=== PATIENT | female | born 1950 | race Caucasian/White ===

== ENCOUNTER 2020-02-06 12:07 | Emergency (ER) | payer MEDICARE, SELFPAY ==
[2020-02-06 12:43] VITALS: BP 152/85; PULSE 110; RESP 16; TEMP 36.9; O2SAT 97; BMI 25.2
--- NOTE | 2020-02-06 13:00 | PC.NURSE ---
PT TRIAGED, OPEN WOUND ON POSTERIOR ASPECT OF LLE. CLEAR DRAINAGE AND REDNESS NOTED, NO WARMTH FELT AROUND THE WOUND, PT DENIES ANY PAIN. RECENTLY FINISHED PCN AND DOXY RXS, REPORTEDLY WITH NO EFFECT. SHE THINKS THIS BEGAN WITH A BUG BITE, THEN CONTAMINATED BY HER DOG. PT HAS CHRONIC BILAT LE EDEMA, DENIES CHF, SOB. TYPICALLY INDEPENDENT AND AMBULATORY AT HOME WITH HER DAUGHTER. DENIES FEVERS AT HOME, CURRENTLY AFEBRILE. REFERRED HERE BY PCP. A&OX3, SPEAKING IN CLEAR FULL SENTENCES. RESP EVEN AND NONLABOURED.
--- NOTE | 2020-02-06 13:07 | PC.NURSE ---
PREVIOUS NOTE ENTERED BY THIS RN
--- NOTE | 2020-02-06 13:22 | ED.WOUNDLAC ---
HPI - Wound/Laceration General Chief Complaint: Wound/Laceration Stated Complaint: LEG INFECTION Time Seen by Provider: 02/06/20 13:08 Source: patient Mode of arrival: ambulatory History of Present Illness HPI narrative: 69-year-old female with a past medical history of hypertension, peripheral edema /lymphedema c/o LLE cellulitis/infection x2 weeks s/p failed outpatient treatment. Patient was on doxycycline x17 days without improvement. Reports LLE erythema, and slight clear drainage. Reports believed was bit by insect and or scratch by dog, reports continuously picking at area. Denies fever, chills, worsening LE edema, SOB Onset (ago): week(s) Related Data Allergies Allergy/AdvReac Type Severity Reaction Status Date / Time amoxicillin [From Augmentin] Allergy Shortness Verified 02/06/20 13:19 of Breath clavulanic acid Allergy Shortness Verified 02/06/20 13:19 [From Augmentin] of Breath Review of Systems Review of Systems: Constitutional: No Weight loss, No Fever, No Chills, No Night Sweats, No Fatigue, Cardiovascular: No Chest Pain, No SOB, No Dyspnea on Exertion, chronic Edema Respiratory: No Cough, No Sputum, No Wheezing Gastrointestinal: No Nausea, No Vomiting, No Diarrhea, No Constipation, No Abdominal pain Genitourinary: No irregular bleeding, No Dysuria, No Urinary Frequency, No Hematuria, No Urinary Incontinence, No Urgency, No Flank Pain, No Urinary Flow Changes, No Hesitancy Musculoskeletal: No joint pain, No Myalgias, No Joint Swelling Skin: +LLE wound with erythema and drainage Neuro: No Weakness, No Numbness, No Paresthesias, No Loss of Consciousness Yes all other systems are reviewed and are negative [facility] Past Medical History Source: unable to obtain Medical History (Updated 02/06/20 @ 16:25 by RINA Brown) Hypertension Peripheral edema Social History Social History Alcohol intake: never Smoking Status: Never smoker Use of substances other than those prescribed or required for medical reasons: No Advance Directives: No Advance Directives Information Provided: No Physical Exam Vital Signs: Vital Signs: Vital Signs Temp Pulse Resp BP Pulse Ox 02/06/20 12:43 98.4 F 110 H 16 152/85 H 97 Body Mass Index 25.2 Const: General: cooperative and healthy appearing Orientation/consciousness: patient oriented x3 Limitations: no limitations HENMT: Head: Yes normal to inspection Ears: hearing grossly normal bilaterally General nose exam: Normal external nose present Face and sinus: Yes normal facial exam Eyes: General: appearance normal, both eyes and all related structures EOM: EOMs intact bilaterally Neck: Neck: Yes normal visual inspection Resp: Effort & Inspection: normal respiratory effort and no stridor Auscultation: clear to auscultation bilaterally, no crackles, no rales, no rhonchi and no wheezes Cardio: Rate: regular rate Heart sounds: S1 normal heart sound present and S2 normal heart sound present Peripheral pulses: Peripheral pulses 2+ throughout GI: Inspection: Yes normal to inspection Palpation (GI): Soft to palpation, nontender, no guarding and not rigid Skin: Other: + erythema/scabs noted to LLE with superficial weeping wound. No fluctuance /induration or streaking. No warmth Neuro: General: patient oriented x3 Extrem: General: Yes edema ( bilateral LE. pitting) Course Course Course Narrative: - 1452-- no leukocytosis, BUN elevated greater than baseline, BNP 149 - CXR without gross evidence of congestive heart failure. Lactate within normal limits - spoke to hospitalist about patient, involved Infectious Disease. Infectious Disease, Dr. Johnson does not believe is cellulitis /infectious, likely irritation/secondary to chronic peripheral edema /wound. ID recommended outpatient wound care. Case Management setting up VNA services for patient. Antibiotics not recommended will discharge home with VNA beginning on Saturday - patient will need a nonstick dressings MDM - Wound/Laceration MDM Narrative Medical decision making narrative: 69-year-old female with a past medical history of hypertension, peripheral edema /lymphedema c/o LLE cellulitis/infection x2 weeks s/p failed outpatient treatment. On exam tachycardic, afebrile nontoxic appearing, left lower extremity cellulitis /weeping wound. Concern for cellulitis vs CHF vs wound secondary to chronic peripheral edema outpatient x-ray from 01/19 without osteomyelitis, WBC count 5.9 on the day Plan: Labs, lactate, blood cultures, admission Lab Data Result diagrams: 02/06/20 14:03 02/06/20 14:03 Labs: Lab Results 02/06/20 02/06/20 02/06/20 Range/Units 14:03 14:03 14:03 WBC 7.6 (4.8-10.8) X10*3/uL RBC 3.63 L (4.20-5.50) X10*6/uL Hgb 10.0 L (12.0-16.0) g/dl Hct 32.3 L (37-47) % MCV 89.0 (80-98) fL MCH 27.5 (27.0-33.0) pg MCHC 31.0 (31.0-35.0) g/dl RDW 15.5 (11.0-16.0) % Plt Count 201 (160-400) X10*3/uL MPV 10.4 (9.4-12.3) fL Immature Gran % (Auto) 0.3 (0.0-0.4) % Neut % (Auto) 75.2 H (45-73) % Lymph % (Auto) 18.0 L (20-40) % [place] % (Auto) 6.0 (2-11) % Eos % (Auto) 0.1 (0-4) % Baso % (Auto) 0.4 (0-2) % Lymph # (Auto) 1.4 (1.2-4.9) X10*3/uL [place] # (Auto) 0.5 (0.1-1.2) X10*3/uL Eos # (Auto) 0.0 (0.0-0.4) X10*3/uL Baso # (Auto) 0.0 (0.0-0.2) X10*3/uL Abs Immat Gran (auto) 0.02 (0.00-0.03) X10*3/uL Absolute Neuts (auto) 5.7 (2.0-8.3) X10*3/uL Absolute Nucleated RBC 0.000 (0.0-0.012) X10*3/uL Nucleated RBC % (auto) 0.0 (0.0-0.2) /100WBC ESR 34 H (0-20) MM/HR Sodium 141 (135-145) mmol/L Potassium 3.7 (3.3-5.1) mmol/l Chloride 106 (96-108) mmol/L Carbon Dioxide 27 (22-29) mmol/L Anion Gap 12 (12-20) BUN 28 H (9-16) mg/dL Creatinine 0.73 (0.5-1.4) mg/dL Estim Creat Clear Calc 70.2 Estimated GFR > 60 Random Glucose 100 (60-115) mg/dL Lactic Acid (0.5-2.0) mmol/L Calcium 9.1 (8.4-10.2) mg/dL Total Bilirubin 0.4 (0.0-1.0) mg/dL Direct Bilirubin 0.2 (0.0-0.5) mg/dL AST 20 (5-31) U/L ALT 17 (0-31) U/L Alkaline Phosphatase 132 H (39-117) U/L C-Reactive Protein 1.73 H (< or = 0.50) mg/dL B-Natriuretic Peptide (<100) pg/mL Total Protein 6.6 (6.5-8.0) g/dL Albumin 2.9 L (3.5-5.0) g/dL 02/06/20 02/06/20 Range/Units 14:03 14:03 WBC (4.8-10.8) X10*3/uL RBC (4.20-5.50) X10*6/uL Hgb (12.0-16.0) g/dl Hct (37-47) % MCV (80-98) fL MCH (27.0-33.0) pg MCHC (31.0-35.0) g/dl RDW (11.0-16.0) % Plt Count (160-400) X10*3/uL MPV (9.4-12.3) fL Immature Gran % (Auto) (0.0-0.4) % Neut % (Auto) (45-73) % Lymph % (Auto) (20-40) % [place] % (Auto) (2-11) % Eos % (Auto) (0-4) % Baso % (Auto) (0-2) % Lymph # (Auto) (1.2-4.9) X10*3/uL [place] # (Auto) (0.1-1.2) X10*3/uL Eos # (Auto) (0.0-0.4) X10*3/uL Baso # (Auto) (0.0-0.2) X10*3/uL Abs Immat Gran (auto) (0.00-0.03) X10*3/uL Absolute Neuts (auto) (2.0-8.3) X10*3/uL Absolute Nucleated RBC (0.0-0.012) X10*3/uL Nucleated RBC % (auto) (0.0-0.2) /100WBC ESR (0-20) MM/HR Sodium (135-145) mmol/L Potassium (3.3-5.1) mmol/l Chloride (96-108) mmol/L Carbon Dioxide (22-29) mmol/L Anion Gap (12-20) BUN (9-16) mg/dL Creatinine (0.5-1.4) mg/dL Estim Creat Clear Calc Estimated GFR Random Glucose (60-115) mg/dL Lactic Acid 0.8 (0.5-2.0) mmol/L Calcium (8.4-10.2) mg/dL Total Bilirubin (0.0-1.0) mg/dL Direct Bilirubin (0.0-0.5) mg/dL AST (5-31) U/L ALT (0-31) U/L Alkaline Phosphatase (39-117) U/L C-Reactive Protein (< or = 0.50) mg/dL B-Natriuretic Peptide 149 H (<100) pg/mL Total Protein (6.5-8.0) g/dL Albumin (3.5-5.0) g/dL Discharge Plan Discharge Clinical Impression: Dermatitis Patient Disposition: Home, Self-Care Instructions: Acute Wounds (ED) Additional Instructions: your blood work was unremarkable today in the ED, no markers of infection Infectious disease does not believe your wound is cellulitis, believed to be topical wound/ may be secondary to your peripheral edema Outpatient wound care recommended, not antibiotics VNA services were set up, you may also follow-up with [place] [facility] If area is worsening,, you have fever, redness is spreading, worsening drainage return to the ED Referrals: [facility] [Outside] - 2 days [facility] [Provider Group] - 2 days
[2020-02-06 14:13] LABS: MANUAL DIFF FLAG NO
[2020-02-06 14:14] LABS: Basophils Percent Auto 0.4 % (0-2); Eosinophils Percent Auto 0.1 % (0-4); Hematocrit 32.3 % (37-47); Imm Gran Abs Auto 0.02 X10*3/uL (0.00-0.03); Imm Gran Pct Auto 0.3 % (0.0-0.4); Lymphocytes Absolute Auto 1.4 X10*3/uL (1.2-4.9); Mean Corpuscular Hemoglobin 27.5 pg (27.0-33.0); Mean Platelet Volume 10.4 fL (9.4-12.3); Monocytes Absolute Auto 0.5 X10*3/uL (0.1-1.2); Neutrophils Absolute Auto 5.7 X10*3/uL (2.0-8.3); Neutrophils Percent Auto 75.2 % (45-73); Platelet Count 201 X10*3/uL (160-400); Red Blood Count 3.63 X10*6/uL (4.20-5.50); Red Cell Distribution Width 15.5 % (11.0-16.0); White Blood Count 7.6 X10*3/uL (4.8-10.8)
[2020-02-06 14:35] LABS: Lactic Acid 0.8 mmol/L (0.5-2.0)
[2020-02-06 14:40] LABS: Alanine Aminotransferase 17 U/L (0-31); Albumin Level 2.9 g/dL (3.5-5.0); Alkaline Phosphatase 132 U/L (39-117); Anion Gap 12 (12-20); Aspartate Amino Transferase 20 U/L (5-31); Bilirubin Direct 0.2 mg/dL (0.0-0.5); Bilirubin Total 0.4 mg/dL (0.0-1.0); Blood Urea Nitrogen 28 mg/dL (9-16); C Reactive Protein 1.73 mg/dL (< or = 0.50); Calcium 9.1 mg/dL (8.4-10.2); Carbon Dioxide 27 mmol/L (22-29); Chloride 106 mmol/L (96-108); Creatinine Clr Calc Pharmacy 70.2; Estimated Glomerular Filt Rate > 60; Glucose Random 100 mg/dL (60-115); Potassium 3.7 mmol/l (3.3-5.1); Sodium 141 mmol/L (135-145); Total Protein 6.6 g/dL (6.5-8.0)
[2020-02-06 14:46] LABS: B Type Natriuretic Peptide 149 pg/mL (<100)
--- NOTE | 2020-02-06 14:53 | XR_ITS ---
EXAMINATION: XR CHEST CLINICAL INFORMATION: Question of CHF COMPARISON: None TECHNIQUE: Frontal view of the chest was obtained. FINDINGS: The heart and pulmonary vessels appear normal. There is no gross evidence of CHF. There may be the slightest amount of upper zone redistribution present but no interstitial edema. Tiny trace right effusion may be present. There is no evidence of a left effusion. No consolidations or lung masses seen. Degenerative changes present in both shoulders. IMPRESSION: No gross evidence of congestive heart failure. There may be some borderline upper zone vascular redistribution present as described above. This can occasionally represent mildly elevated left ventricular end-diastolic pressure.
[2020-02-06 14:54] LABS: Erythrocyte Sedimentation Rate 34 MM/HR (0-20)
[2020-02-06] MEDS: cefEPime HCl 2 GM in 0.9 % Sodium Chloride 50 ML IV (15:15)
[2020-02-06] MEDS: vancomycin HCL 750 MG in 0.9 % Sodium Chloride 250 ML 265 MG IV (15:45)
--- NOTE | 2020-02-06 16:13 | PC.NURSE ---
[facility]
--- NOTE | 2020-02-07 11:21 | MHC.CM.ED ---
Received notification from [facility] that they will not be able to accept patient. Patient only needs dry clean dressing and has been referred to Wound Clinic. Patient has been discharged home.
== END 2020-02-06 18:17 | disposition home or self-care (01) ==
PROVIDERS: Physician Assistant; Emergency Provider Emergency Medicine; PCP Internal Medicine
DX: L30.9 Dermatitis, unspecified (principal); R60.0 Localized edema; I10 Essential (primary) hypertension; Z79.899 Other long term (current) drug therapy
CPT/HCPCS: 36415; 71045; 80048; 80076; 83605; 83880; 85025; 85652; 86140; 87040; 96365; 96367; 99284

== ENCOUNTER 2020-02-11 14:01 | Outpatient (RCR) | payer MEDICARE, SELFPAY | END 2020-05-26 15:22 | disposition home or self-care (01) | LOC: HO.WCC 14:01 | PROVIDERS: PCP Internal Medicine; Visit Provider Surgery | DX: I87.312 Chronic venous hypertension (idiopathic) with ulcer of left lower extremity (principal); I70.248 Atherosclerosis of native arteries of left leg with ulceration of other part of lower leg; L97.821 Non-pressure chronic ulcer of other part of left lower leg limited to breakdown of skin; S81.801D Unspecified open wound, right lower leg, subsequent encounter; Q82.0 Hereditary lymphedema; R21 Rash and other nonspecific skin eruption; I10 Essential (primary) hypertension | CPT/HCPCS: 99202; 99212; 99213; 99214 ==

== ENCOUNTER 2022-12-14 15:49 | Outpatient (AMB) | payer MEDICARE, SELFPAY ==
--- NOTE | 2022-12-14 15:49 | A.OFFPC_ITS ---
Intake Visit Reasons: 3 month f/u [phone] Allergies amoxicillin [From Augmentin] Allergy (Severe, Verified 12/14/22 16:37) Shortness of Breath clavulanic acid [From Augmentin] Allergy (Severe, Verified 12/14/22 16:37) Shortness of Breath Medication List - Last Reconciled 12/14/22 by Carlos Madrigal MD ammonium lactate 12% 1 appl topical BID aspirin (Nima Aspirin) 325 mg PO DAILY bismuth tribrom-petrolatum,wh 5 X 9 (Xeroform Petrolatum Dressing) As directed cholecalciferol (vitamin D3) 25 mcg PO DAILY clotrimazole 1% 1 appl topical BID 30 days collagenase clostridium histo. 1 appl topical DAILY 30 days docusate sodium 100 mg PO DAILY PRN 30 days gauze bandage (Bordered Gauze) As directed [LIGHTWEIGHT WHEELCHAIR LIGHTWEIGHT WHEELCHAIR # 1 - use daily as directed] loperamide (Imodium A-D) 2 mg PO Q6H PRN miscellaneous medical supply Hospital Bed - use daily as needed miscellaneous; Hospital Bed miscellaneous medical supply Adjustable Bedside Tray Table miscellaneous; Adjustable Bedside Tray Table nystatin (Nystop) 1 appl topical DAILY nystatin (Nystop) 1 appl topical BID 10 days tramadol 50 mg PO BID PRN 15 days wheelchair As directed zinc oxide 12% (Bing Protect (zinc oxide)) 1 appl topical QID PRN 10 days Tobacco use date assessed: 12/14/22 Dental Screening Dental Screen Date: 12/14/22 Did you have a dental visit in the last 12 months?: No Did you have a dental problem in the last 6 months where you did not have access to dental care?: No Was dental information given to patient?: Patient declined HPI 3 month f/u [phone] HPI Details Patient's follow-up visit / consultation today is done over the phone - this is a Telehealth visit Patient's current medications have been reviewed and verified with patient and / or caregiver / proxy and have been updated accordingly in the medication list Patient states that she is doing fair overall - still has the same chronic issues from before and states that they have not changed much although she used to have diarrhea often in the past but lately has been getting constipated Notes that her stomach has been feeling bloated often lately and she sometimes does not have a bowel movement for days Would like to see if she can be prescribed something mild to help regulate her bowels better Adds that she currently has some sores again on her legs recently and she still has on and off swelling States that her daughter recently got her some new supplements to drink and her sores look like they are starting to heal up now She denies any fever, headaches or dizziness Denies any chest pains, no shortness of breath No nausea /vomiting, no abdominal pain No change in bowel habits noted [facility] Medical History Allergic rhinitis Benign essential hypertension Decubitus skin ulcer Deep vein thrombosis Deep vein thrombosis (DVT) of both lower extremities Heel ulcer Hospital discharge follow-up Lymphedema Vitamin D deficiency Surgical History No pertinent past surgical history Family History Father Glaucoma Alzheimers disease Mother Skin cancer Brain cancer Family/Other Heart disease Social History Housing: House Alcohol intake: never Patient Tobacco Use Status: Never used Tobacco e-Cigarette/Vaping Use: Never Used Second Hand Smoke Exposure: Yes service: No Current occupational status: disabled Cognitive needs: Yes (wheelchair) Hearing needs: No Vision needs: Yes Questionnaire PHQ-9 Over the last 2 weeks, how often have you been bothered by any of the following problems? 1. Little interest or pleasure in doing things: not at all 2. Feeling down, depressed, or hopeless: not at all 3. Trouble falling or staying asleep, or sleeping too much: not at all 4. Feeling tired or having little energy: not at all 5. Poor appetite or overeating: not at all 6. Feeling bad about yourself - or that you are a failure or have let yourself or your family down: not at all 7. Trouble concentrating on things, such as reading the newspaper or watching television: not at all 8. Moving or speaking so slowly that other people could have noticed. Or the opposite - being so fidgety or restless that you have been moving around a lot more than usual: not at all 9. Thoughts that you would be better off or of hurting yourself in some way: not at all Total score: 0 Depression Screening Interpretation: Negative 38121 - PHQ-9 Billing: Yes Source: Developed by Drs. Kevyn Millan, Erica Benson, Miguel Freeman and colleagues, with an educational juventino from [employer]. Thrive Questionnaire Date Thrive assessed: 12/14/22 I am a: Patient What is your living situation today?: I have a steady place to live Within the past 12 months, did the food you bought not last and you didn't have the money to get more?: Never true Within the past 12 months, did you worry whether your food would run out before you got money to buy more?: Never true Do you have trouble paying for medicines?: No Do you have trouble getting transportation to medical appointments?: No Do you have trouble paying your heating and electricity bill?: No Do you have trouble taking care of your child, family member or friend?: No Do you have trouble with day-to-day activities such as bathing, preparing meals, shopping, managing finances, etc.?: No Are you currently unemployed and looking for a job?: No Are you interested in more education?: No Currently or been in a relationship where the following occur: no concerns reported AUDIT C Alcohol Use Questionnaire (AUDIT-C) 1. How often do you have a drink containing alcohol?: Never 3. How often do you have six or more drinks on one occasion?: Never Total Score: 0 Score Reviewed/Action Taken: Yes MEGAN-7 AMB Questionnaire MEGAN-7 Date MEGAN - 7 assessed: 12/14/22 Feeling nervous, anxious, or on edge: 0 = Not at all Not being able to stop or control worryin = Not at all Worrying too much about different things: 0 = Not at all Trouble relaxin = Not at all Being so restless that it is hard to sit still: 0 = Not at all Becoming easily annoyed or irritable: 0 = Not at all Feeling afraid as if something awful might happen: 0 = Not at all Total MEGAN-7 score (0-4 normal; 5-9 mild; 10-14 moderate; 15-21 severe): 0 Source: Developed by Drs. Kevyn Millan, Erica Benson, Miguel Freeman and colleagues, with an educational juventino from [employer]. Review of Systems Const Denies chills, Denies fatigue, Denies fever(s) and Denies headache(s) ENT Denies dysphagia, Denies dizziness, Denies otalgia, Denies headache(s), Denies odynophagia and Denies sore throat Card Denies chest pain, Denies palpitations and Denies dyspnea Resp Denies cough and Denies dyspnea GI Denies abdominal pain, Reports bloating, Denies hematochezia, Reports constipation (increasing lately), Denies dysphagia, Denies heartburn, Denies diarrhea, Denies nausea, Denies odynophagia and Denies vomiting Denies difficulty voiding, Denies nocturia and Denies dysuria Skin/Breast Denies skin ulcer and Reports sores (over both lower legs) Neuro Denies dizziness and Denies headache(s) Endo Denies fatigue and Denies palpitations Rangel/Lymph Details: (+) chronic swelling over both lower legs and feet Physical exam (Primary Care) Vital Signs: Physical examination is not performed as visit / consultation today is done over the phone - Telehealth visit All physical findings indicated here, if present, are as per patient's and / or caregivers / proxy's report Tobacco/Smoking Status: Tobacco use Status Tobacco use date assessed 12/14/22 12/14/22 15:51 Patient Tobacco Use Status Never used Tobacco 12/14/22 15:51 e-Cigarette/Vaping Use Never Used 12/14/22 15:51 PHQ-9: PHQ-9 Score PHQ-9: Total score 0 12/14/22 16:51 Depression Screening Interpretation: Negative Thrive Assessment: Date of Thrive Assessment Date Thrive assessed 12/14/22 12/14/22 15:51 Currently or been in a relationship where the following occur: no concerns reported Telehealth Telehealth Location of provider rendering services: practice address Location of patient: address on file Patient Identification confirmed using: Name, : Yes Telehealth method: voice only Patient verbally consented to treatment: Yes Patient verbally consented to billing insurance company: Yes Patient informed of any privacy concerns related to visit: Yes Minutes spent on Phone/Video with Pt.: 17 Assessment and Plan Assessment & Plan (1) Decubitus skin ulcer: Code(s): L89.90 - Pressure ulcer of unspecified site, unspecified stage Qualifiers: Pressure injury location: back, unspecified location Pressure injury stage: unspecified pressure injury stage Qualified Code(s): L89.109 - Pressure ulcer of unspecified part of back, unspecified stage Plan: Over the lower extremities - chronic Patient states that her lower extremity ulcers have recurred lately but seem to be improving now when she started taking some oral supplements procured by her daughter Is again instructed to continue with daily wound care on her lower legs and to keep her legs elevated as often as she can to help with wound healing and to minimize her edema (2) Lymphedema: Comment: Blisters on legs Code(s): I89.0 - Lymphedema, not elsewhere classified Plan: Reminded to continue to keep her legs elevated as often as she can to help minimize her edema - patient states that this has improved a lot and she ahs hardly any swelling in her legs lately (3) Constipation: Code(s): K59.00 - Constipation, unspecified Qualifiers: Constipation type: unspecified constipation type Qualified Code(s): K59.00 - Constipation, unspecified Plan: Reinforced increased oral fluids and dietary fiber Will start her for now on Senna 8.6 mg QD PRN Plan Follow up in 3 months Medications: New sennosides (Senna Laxative) 8.6 mg PO BEDTIME PRN 90 tabs 1RF constipation 90 days Coding Level of Care Code Tele Est Pt Level 3 (11079) Diagnoses Decubitus skin ulcer L89.109 Pressure injury location: back, unspecified location Pressure injury stage: unspecified pressure injury stage Lymphedema I89.0 Constipation K59.00 Constipation type: unspecified constipation type
== END 2022-12-14 17:19 | disposition home or self-care (01) ==
LOC: HO.HMGH 15:49
PROVIDERS: PCP Internal Medicine; Visit Provider Internal Medicine
DX: L89.899 Pressure ulcer of other site, unspecified stage (principal); I89.0 Lymphedema, not elsewhere classified; K59.00 Constipation, unspecified
CPT/HCPCS: 99442

== ENCOUNTER 2023-03-10 16:55 | Inpatient (IN) | payer MEDICARE, MEDICAID, SELFPAY ==
--- NOTE | ~2023-03-10 | US_ITS ---
EXAMINATION: US DOPPLER LOWER EXTREMITY ARTERIAL, BILATERAL CLINICAL INFORMATION: Suspect ischemia. COMPARISON: None TECHNIQUE: Color Doppler and spectral Doppler assessment was obtained through the arteries of both lower extremities. Additional images were taken of the right deep venous system. FINDINGS: RIGHT: Common femoral: PSV 47 centimeters per second. Triphasic waveform. Deep femoral: PSV 43 centimeters per second. Biphasic waveform. Proximal superficial femoral: PSV 63 centimeters per second. Biphasic waveform. Mid superficial femoral: PSV 56 centimeters per second. Biphasic waveform. Distal superficial femoral: PSV 25 centimeters per second. Monophasic waveform. Proximal popliteal: Not imaged Posterior tibial artery: PSV 44 centimeters per second. Monophasic waveform. LEFT: Common femoral: PSV 62 centimeters per second. Triphasic waveform. Deep femoral: PSV 87 centimeters per second. Biphasic waveform. Proximal superficial femoral: PSV 49 centimeters per second. Biphasic waveform. Mid superficial femoral: PSV 63 centimeters per second. Biphasic waveform. Distal superficial femoral: PSV 45 centimeters per second. Biphasic waveform. Proximal popliteal: Not imaged Posterior tibial artery: PSV 57 centimeters per second. Monophasic waveform. Of note, the bilateral popliteal arteries were not imaged at the patient's request not to move her legs. Incidental note is made of noncompressible deep vein thrombus in the right common femoral, and femoral veins. US/US arterial duplex LE BI IMPRESSION: 1. Incidental note is made of noncompressible deep vein thrombus in the right common femoral, and femoral veins. 2. Otherwise, no evidence of hemodynamically significant stenosis in the bilateral lower extremity arteries. 3. Bilateral popliteal arteries were not imaged at the patient's request not to move her legs.
--- NOTE | ~2023-03-10 | CT_ITS ---
EXAMINATION: CT ABDOMEN AND PELVIS WITH CONTRAST CLINICAL INFORMATION: Abdominal pain. COMPARISON: None available. TECHNIQUE: Multidetector volumetric images were obtained from the superior aspect of the liver through the pubic symphysis following administration 85 mL of Omnipaque 350 intravenous contrast. Sagittal and coronal reformatted images were obtained on the technologist's workstation. Oral contrast: No This CT examination was performed using dose optimization techniques as appropriate, variously including the following: *Automated exposure control *Adjustment of mA and/or kV according to patient size (this includes techniques or standardized protocols for targeted exams where dose is matched to indication/reason for exam; i.e. extremities or head) *Use of iterative reconstruction technique DLP: 649 mGy-cm FINDINGS: LUNG BASES: There is minimal right pleural effusion with mild associated right lung base consolidation. LIVER, GALLBLADDER, AND BILIARY TREE: The liver is normal in size, shape, and attenuation. No focal hepatic lesion or biliary ductal dilatation is present. Multiple gallstones are noted. PANCREAS: Unremarkable. SPLEEN: Unremarkable. ADRENAL GLANDS: Unremarkable. KIDNEYS AND URETERS: The kidneys are normal in size, shape, and attenuation. There is an apparent right-sided staghorn calculus extending to the right renal pelvis. There is no hydronephrosis. There is no hydroureter. BLADDER: There is mild urinary bladder wall thickening. GASTROINTESTINAL TRACT: A rectal catheter is noted in place. There is retained rectal stool with rectal expansion to 6.1 cm and mild rectal thickening. ABDOMINAL WALL: There is a small umbilical hernia containing fat. There is a large sacrococcygeal defect with a meshlike structure along the defect and mixed fluid and air lucencies just posterior to the defect. There is also bilateral symmetric presacral soft tissue densities measuring up to 6 cm. There is an oval 5 mm collection along the right iliac bone which appears to be connected to the presacral collection and associated with the defect. LYMPH NODES: Normal. VASCULAR: Unremarkable. PELVIC VISCERA: Bilateral symmetric presacral soft tissue densities are noted measuring up to 6 cm. OSSEOUS STRUCTURES: There is diffuse mild thoracolumbar disc degenerative change. A sacrococcygeal defect is again noted as described above. The bony structures are osteopenic and heterogeneous. There is significant bilateral hip degenerative change. CT/CT abdomen pelvis w IV con IMPRESSION: Large sacrococcygeal defect with a meshlike structure filling the defect as well as fluid and some air dorsal to defect and heterogeneous presacral soft tissue structures associated with the defect. The presacral structures are of uncertain current significance and may be chronic. Phlegmon considered. There is an associated 5 cm collection along the right iliac bone which appears to be connected to the presacral collection and associated with the defect. This may also be chronic. No comparisons are available. Rectal catheter in place with retained rectal stool and mild rectal thickening possibly a mild stercoral colitis. Mild urinary bladder wall thickening needs correlation with urinalysis. Minimal right pleural effusion with mild right mild right lung base consolidation likely atelectasis. A component of infiltrate also considered. Cholelithiasis. There appears to be a staghorn calculus on the right. Fleischner guidelines were followed.
--- NOTE | ~2023-03-10 | CT_ITS ---
EXAMINATION: CT right lower leg with contrast CLINICAL INFORMATION: Anemia. Possible hematoma. There is pain in the lower leg. COMPARISON: None. TECHNIQUE: Axial images obtained through the right lower leg from the proximal thigh through the foot after intravenous injection of 85 mL of Omnipaque 350. Coronal and sagittal reformatted images are performed at CT scanner FINDINGS: No hematoma. No focal fluid collections. No abnormal enhancing lesion. Mild subcutaneous edema throughout the lower extremity. No abscess. There is osteopenia. No acute osseous lesions. No fracture or dislocation. Degenerative joint narrowing of the femoral tibial and patellofemoral joints. CT/CT lower leg RT w IV con IMPRESSION: 1. No hematoma. 2. Mild subcutaneous edema throughout the leg.
--- NOTE | ~2023-03-10 | XR_ITS ---
EXAMINATION: XR CHEST CLINICAL INFORMATION: Central line placement. COMPARISON: 02/06/2020 TECHNIQUE: Frontal view of the chest was obtained. FINDINGS: Right IJ central venous catheter tip terminates near the cavoatrial junction. EKG leads overlie the chest. Lung lines are normal. No pneumothorax, pleural effusion, or airspace consolidation. Cardiac and meniscal contours are normal. Pulmonary vasculature is unremarkable. Bones are osteopenic. Osteoarthritis is present in the acromioclavicular and glenohumeral joints. XR/XR chest 1V IMPRESSION: Right IJ central venous catheter tip terminates near the cavoatrial junction. No pneumothorax.
[2023-03-10 17:13] VITALS: BP 90/60; PULSE 110; PULSE 115; RESP 14; O2SAT 95; O2SAT 99
--- NOTE | 2023-03-10 17:24 | ECG_ITS ---
Test Reason : WEAKNESS Blood Pressure : / mmHG Vent. Rate : 111 BPM Atrial Rate : 111 BPM P-R Int : 124 ms QRS Dur : 088 ms QT Int : 334 ms P-R-T Axes : 074 065 249 degrees QTc Int : [address] & T wave abnormality, consider inferior ischemia ST & T wave abnormality, consider anterolateral ischemia Abnormal ECG No previous ECGs available Referred By: Verna Merida Electronically Signed By:BARNEY LEE MD
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
[2023-03-10 18:41] VITALS: BP 80/35; PULSE 13; TEMP 36.4
[2023-03-10] MEDS: 0.9 % Sodium Chloride 1,000 ML 999 ML IV ×2 (18:54→20:47)
[2023-03-10 18:59] VITALS: BP 90/54; PULSE 105; RESP 12; TEMP 36.1; O2SAT 91
[2023-03-10 19:00] LABS: Lactic Acid 3.3 mmol/L (0.5-2.0)
[2023-03-10 19:06] LABS: Alanine Aminotransferase 6 U/L (0-31); Albumin Level 1.9 g/dL (3.5-5.0); Alkaline Phosphatase 190 U/L (39-117); Anion Gap 20 (12-20); Aspartate Amino Transferase 12 U/L (5-31); Bilirubin Total 0.5 mg/dL (0.0-1.0); Blood Urea Nitrogen 60 mg/dL (9-16); Carbon Dioxide 16 mmol/L (22-29); Chloride 103 mmol/L (96-108); Creatinine Clr Calc Pharmacy 32.8; Estimated Glomerular Filt Rate 43; Glucose Random 126 mg/dL (60-115); Magnesium 1.8 mg/dL (1.6-2.6); Phosphorus 3.4 mg/dL (2.7-4.5); Potassium 4.9 mmol/L (3.3-5.1); Sodium 134 mmol/L (135-145); Total Protein 6.1 g/dL (6.5-8.0)
[2023-03-10 19:09] LABS: Basophils Percent Auto 0.2 % (0-2); Hematocrit 22.1 % (37.0-47.0); Imm Gran Abs Auto 0.29 X10*3/uL (0.00-0.03); Imm Gran Pct Auto 1.2 % (0.0-0.4); Lymphocytes Absolute Auto 1.6 X10*3/uL (1.2-4.9); Lymphocytes Percent Auto 6.7 % (20-40); MANUAL DIFF FLAG SCAN; Mean Corpuscular HGB Conc 28.5 g/dl (31.0-35.0); Mean Corpuscular Hemoglobin 19.8 pg (27.0-33.0); Mean Corpuscular Volume 69.5 fL (80.0-98.0); Mean Platelet Volume 9.7 fL (9.4-12.3); Monocytes Absolute Auto 0.9 X10*3/uL (0.1-1.2); Monocytes Percent Auto 3.6 % (2-11); NRBC Pct Auto 0.5 /100WBC (0.0-0.2); Neutrophils Absolute Auto 21.6 x10*3/uL (2.0-8.3); Neutrophils Percent Auto 88.3 % (45-73); Platelet Count 164 X10*3/uL (160-400); Red Blood Count 3.18 X10*6/uL (4.20-5.50); Red Cell Distribution Width 26.4 % (11.0-16.0); SCAN SMEAR FLAG 1; White Blood Count 24.4 X10*3/uL (4.8-10.8)
--- OUTSIDE RECORDS SUMMARY | 2023-03-10 19:15 | XMS_ITS | Continuity of Care Document ---
Author Name Unknown Organization [facility] Address Unknown Care Team Providers Care Band Maker Name Role Phone Carlos Madrigal MD Primary Care Physician [phone] [place] [facility] [place] 01/[place]21 [facility] Attending Physician: Susannah Dave Admitting Physician: Susannah Dave Referring Physician: Susannah Dave Allergies, Adverse Reactions, Alerts No Known Medication Allergies Immunizations Not Given Vaccine Date Status Refusal Reason pneumococcal 13-valent vaccine 07/06/20 Not Given Patient Refuses pneumococcal 13-valent vaccine 05/07/20 Not Given Patient Refuses Medications acetaminophen 325 mg oral tablet 650 mg, By Mouth, Every 4 hours, PRN, Temperature Greater than 100.5, Refills 0, Maintenance, Pain , Mild, 05/10/20 13:13:00 EST, Partial fill upon patient request if the prescription is for a schedule II opioid drug. Start Date: 05/10/20 Status: Ordered apixaban = 5 mg, By Mouth, 2 times a day, Take 10 mg BID for 6 days. Then start taking 5 mg BID on 05/17, # 60 tablet, 2 Refills, Maintenance, 05/11/20 13:05:00 EST, Tablet, Partial fill upon patient request if the prescription is for a schedule II opioid drug. Start Date: 05/11/20 Stop Date: 08/09/20 Status: Ordered apixaban = 10 mg, By Mouth, 2 times a day, Take 10 mg BID for 6 days (end: 05/16). Then start taking 5 mg BIDon 05/17, # 11 tablet, 0 Refills, Maintenance, 05/11/20 13:05:00 EST, Tablet, Partial fill upon patient request if the prescription is for a schedule II... Start Date: 05/11/20 Stop Date: 05/17/20 Status: Ordered Dakins Quarter Strength 0.125% topical solution See Instructions, Please dispense 500 mL or any size less than the amount if unavailable., # 1 each, 3 Refills, Maintenance, 08/01/20 8:20:00 EDT, [facility], Partial fill upon patient request if the prescription is for a schedule II opio... Start Date: 08/01/20 Status: Ordered ferrous sulfate 325 mg oral enteric coated tablet 325 mg, By Mouth, Daily, Refills 0, Maintenance, 05/10/20 13:14:00 EST, Partial fill upon patient request if the prescription is for a schedule II opioid drug. Start Date: 05/10/20 Status: Ordered folic acid 1 mg oral tablet 1 mg, 1, tablet, By Mouth, Daily, Refills 0, Maintenance, 05/10/20 13:14:00 EST, Partial fill upon patient request if the prescription is for a schedule II opioid drug. Start Date: 05/10/20 Status: Ordered Maalox Plus Liquid 30 mL, By Mouth, Every 4 hours, PRN Dyspepsia, 0 Refills, Maintenance, 05/10/20 13:14:00 EST, Suspension, Partial fill upon patient request if the prescription is for a schedule II opioid drug. Start Date: 05/10/20 Status: Ordered Referral to [facility] Referral to [facility], See Instructions, # 1 each, Refills 0, Tot. Refills 0, Maintenance, For evaluation, management & followup of coccygeal wound, 08/01/20 8:39:00 EDT, Supply Start Date: 08/01/20 Status: Ordered Vital-D By Mouth, Daily, 0 Refills, Maintenance, 05/06/20 4:02:00 EST, Partial fill upon patient request ifthe prescription is for a schedule II opioid drug. Start Date: 05/06/20 Status: Ordered Problem List Condition Effective Dates Status Health Status Inform ant Direct hyperbilirubinemia(Confirmed) Active Septic shock(Confirmed) Active
--- OUTSIDE RECORDS SUMMARY | 2023-03-10 19:15 | XMS_ITS | Continuity of Care Document ---
Author Name Unknown Organization [facility] ter Address [address] [place] [id number] Care Team Providers Care Stair Builder Name Role Phone Carlos Madrigal MD Primary Care Physician Encounter [facility] [place] Date(s): 07/14/20 - 08/13/[address] [id number]- Attending Physician: Not on Staff, Attending MD Admitting Physician: Not on Staff, Admitting MD Referring Physician: Not on Staff, Referring MD Allergies, Adverse Reactions, Alerts No Known Medication [...] Start Date: 05/10/20 Status: Ordered Referral to [facility] Referral to [facility], See Instructions, # 1 [...]
--- OUTSIDE RECORDS SUMMARY | 2023-03-10 19:15 | XMS_ITS | Continuity of Care Document ---
Author Name Unknown Organization [facility] Address [address] [place] [address]- Care Team Providers Care International Organizer Name Role Phone Carlos Madrigal MD Primary Care Physician Encounter [facility] [place] Date(s): 05/19/20 - 09/02/20 [facility] [address] [place] [id number] Discharge Disposition: A-D/C Home Attending Physician: Coy BASHIR(Hem/Onc), Juan Cheema Admitting Physician: Coy BASHIR(Hem/Onc), Juan Cheema Referring Physician: Carlos Madrigal MD Allergies, Adverse Reactions, Alerts No Known [...] Start Date: 05/10/20 Status: Ordered Referral to [facility] Referral to [facility], See Instructions, # 1 [...]
--- OUTSIDE RECORDS SUMMARY | 2023-03-10 19:15 | XMS_ITS | Continuity of Care Document ---
Author Name Unknown Organization [facility] ter Address [address] [place] [id number]- Care Team Providers Care Final Application Reviewer Name Role Phone Carlos Madrigal MD Primary Care Physician [phone] Encounter [facility] Date(s): 05/05/20 - 05/11/[address] [address]- Discharge Disposition: A-Transfer SNF Attending Physician: Douglas Prescott MD Admitting Physician: Jaskaran Mendez MD Referring Physician: Not on Staff, Referring MD Allergies, Adverse Reactions, Alerts No Known Medication Allergies Immunizations Not Given Vaccine Date Status Refusal Reason pneumococcal 13-valent vaccine 05/07/20 Not Given Patient [...] Date: 05/11/20 Stop Date: 05/17/20 Status: Ordered doxycycline monohydrate 100 mg oral capsule 1 capsule = 100 mg, By Mouth, 2 times a day, for 2 days, # 4 capsule, 0 Refills, Acute 05/13/20 14:50:00 EST, 05/11/20 14:50:00 EST, Capsule, Partial fill upon patient request if the prescription is for a schedule II opioid drug. Start Date: 05/11/20 Stop Date: 05/13/20 Status: Ordered ferrous sulfate 325 mg oral [...] opioid drug. Start Date: 05/10/20 Status: Ordered traMADol 50 mg oral tablet 1 tablet = 50 mg, By Mouth, Every 6 hours, PRN as needed for pain, # 18 tablet, 0 Refills, Acute 05/15/20 13:25:00 EST, 05/11/20 13:25:00 EST, Tablet, Partial fill upon patient request if the prescription is for a schedule II opioid drug. Start Date: 05/11/20 Stop Date: 05/15/20 Status: Ordered Vital-D By Mouth, Daily, 0 Refills, Maintenance, 05/06/20 4:02:00 EST, Partial fill upon patient request ifthe prescription is for a schedule II opioid drug. Start Date: 05/06/20 Status: Ordered Results Orders for Microbiology Reports Name Date Blood Culture #2 05/06/20 Blood Culture 05/04/20 Blood Culture #2 05/04/20 Microbiology Reports TEST:Blood Culture, Second Order STATUS:Auth (Verified) BODY SITE: SOURCE:Blood COLLECTED DATE/TIME:05/06/20 6:26 PM Blood Culture, Second Order SPECIMEN DESCRIPTION : BLOOD NO SITE SPECIAL REQUESTS : NONE CULTURE : NO GROWTH 5 DAYS. REPORT STATUS : FINAL 05/11/2020 TEST:Blood Culture, Second Order STATUS:Auth (Verified) BODY SITE: SOURCE:Blood COLLECTED DATE/TIME:05/05/20 5:06 AM Blood Culture, Second Order SPECIMEN DESCRIPTION : BLOOD RT ARM SPECIAL REQUESTS : NONE CULTURE : NO GROWTH 5 DAYS. REPORT STATUS : FINAL 05/10/2020 TEST:Blood Culture STATUS:Auth (Verified) BODY SITE: SOURCE:Blood COLLECTED DATE/TIME:05/05/20 1:14 AM Blood Culture SPECIMEN DESCRIPTION : BLOOD NO SITE SPECIAL REQUESTS : CRITICAL VALUE CALLED AND VERIFIED BY READBACK FOR: GRAM POSITIVE COCCI,LILY [id number],W4,TECH 357,05/06/20 @1512. CULTURE : STAPH. SPECIES, NOT STAPH. AUREUS Single isolates of Staph. species, not Staph. aureus, Micrococci, Bacillus species, Diphtheroids, Cutibacterium acnes (formerly Propionibacterium acnes) and Viridans Group Streptococci could be skin contaminants. Multiple isolates of these organisms are more likely to be significant. Staphylococcus species (not S. aureus) was identified by multi-plex PCR REPORT STATUS : FINAL 05/09/2020 ORGANISM STAPH. SPECIES, NOT STAPH. AUREUS Single isolates of Staph. species, not Staph. aureus, Micrococci, Bacillus species, Diphtheroids, Cutibacterium acnes (formerly Propionibacterium acnes) and Viridans Group Streptococci could be skin contaminants. Multiple isolates of these organisms are more likely to be significant. METHOD MIN. INHIB. CONC. (MCG/ML) CIPROFLOXACIN SUSCEPTIBLE ERYTHROMYCIN SUSCEPTIBLE LEVOFLOXACIN SUSCEPTIBLE RIFAMPIN SUSCEPTIBLE TRIMETH/SULFAMETHOX SUSCEPTIBLE VANCOMYCIN SUSCEPTIBLE Radiology Reports * Exam Date Time Procedure Performing Provider Status 05/05/20 4:27 PM Chest Portable Debra Lambert; Auth ( Verified) Notes: (Chest Portable) Reason For Exam: Line Placement RESULT: Chest Portable Chest Portable Reason: Line Placement; Clinical Question(s): Line Placement COMPARISON: 05/05/2020 at 1:00 AM FINDINGS: LINES AND TUBES: Right IJ central venous catheter projects at the cavoatrial junction, appropriately retracted from prior. LUNGS AND PLEURA: Clear lungs. Normal pulmonary vascularity. No pleural effusion. No pneumothorax. HEART, MEDIASTINUM AND JOSEY: Heart is normal in size. Normal upper mediastinal and hilar contour. BONES AND SOFT TISSUES: No acute abnormality. IMPRESSION: Appropriate position of the right IJ central venous catheter. WSN: [id number] Ordering Physician: Madeleine Carlos Dictated By: Clint Morse MD Dictated Date/Time: 05/05/20 4:29 pm Reviewed By: Clint Morse MD Signed By: Clint Morse MD Signed Date/Time: 05/05/20 4:29 pm Transcribed By: ALESSANDRO Transcribed Date/Time: 05/05/20 4:28 pm * Exam Date Time Procedure Performing Provider Status 05/05/20 2:29 PM Tibia/Fibula 2 Views Left Zeenat Story tte; Auth (Verified) Notes: (Tibia/Fibula 2 Views Left) Reason For Exam: Trauma;with Pain RESULT: Tibia/Fibula 2 Views Left Tibia/Fibula 2 Views Right, Tibia/Fibula 2 Views Left Reason: Trauma; with Pain; Clinical Question(s): Osteomyelitis COMPARISON: None. FINDINGS: No fracture or focal osseous lesions are seen. No cortical destruction to suggest osteomyelitis. Mild degenerative changes. There is circumferential soft tissue edema right side greater than left with evidence of chronic underlying stasis. No radiopaque foreign bodies are seen. No soft tissue gas. IMPRESSION: Edematous changes. No focal osseous abnormalities. WSN: [id number] Ordering Physician: Madeleine Carlos Dictated By: Elder Farah MD Dictated Date/Time: 05/05/20 4:23 pm Reviewed By: Elder Farah MD Signed By: Elder Farah MD Signed Date/Time: 05/05/20 4:23 pm Transcribed By: ALESSANDRO Transcribed Date/Time: 05/05/20 4:21 pm * Exam Date Time Procedure Performing Provider Status 05/05/20 2:29 PM Tibia/Fibula 2 Views Right Sadi Story ette; Auth (Verified) Notes: (Tibia/Fibula 2 Views Right) Reason For Exam: Trauma;with Pain RESULT: Tibia/Fibula 2 Views Right Tibia/Fibula 2 Views Right, Tibia/Fibula 2 Views Left Reason: Trauma; with Pain; Clinical Question(s): Osteomyelitis COMPARISON: None. FINDINGS: No fracture or focal osseous lesions are seen. No cortical destruction to suggest osteomyelitis. Mild degenerative changes. There is circumferential soft tissue edema right side greater than left with evidence of chronic underlying stasis. No radiopaque foreign bodies are seen. No soft tissue gas. IMPRESSION: Edematous changes. No focal osseous abnormalities. WSN: [id number] Ordering Physician: Madeleine Carlos Dictated By: Elder Farah MD Dictated Date/Time: 05/05/20 4:23 pm Reviewed By: Elder Farah MD Signed By: Elder Farah MD Signed Date/Time: 05/05/20 4:23 pm Transcribed By: ALESSANDRO Transcribed Date/Time: 05/05/20 4:21 pm * Exam Date Time Procedure Performing Provider Status 05/05/20 2:29 PM Foot Min 3 Views Right Payton Story ; Auth (Verified) Notes: (Foot Min 3 Views Right) Reason For Exam: Trauma;with Pain RESULT: Foot Min 3 Views Right Foot Min 3 Views Left, Foot Min 3 Views Right, 3 views Reason: Trauma; with Pain; Clinical Question(s): Osteomyelitis COMPARISON: None. FINDINGS: No acute fracture or dislocation, no cortical destruction to suggest osteomyelitis. Mild degenerative changes. There are small Achilles enthesophytes and plantar spurs bilaterally. There is soft tissue prominence much greater on the right than the left, no radiopaque foreign bodyis seen. IMPRESSION: Extensive soft tissue edema on the right, milder soft tissue edema on the left. WSN: [id number] Ordering Physician: Madeleine Carlos Dictated By: Elder Farah MD Dictated Date/Time: 05/05/20 4:21 pm Reviewed By: Elder Farah MD Signed By: Elder Farah MD Signed Date/Time: 05/05/20 4:21 pm Transcribed By: ALESSANDRO Transcribed Date/Time: 05/05/20 4:18 pm * Exam Date Time Procedure Performing Provider Status 05/05/20 2:29 PM Foot Min 3 Views Left Payton Story; Auth (Verified) Notes: (Foot Min 3 Views Left) Reason For Exam: Trauma;with Pain RESULT: Foot Min 3 Views Left Foot Min 3 Views Left, Foot Min 3 Views Right, 3 views Reason: Trauma; with Pain; Clinical Question(s): Osteomyelitis COMPARISON: None. FINDINGS: No acute fracture or dislocation, no cortical destruction to suggest osteomyelitis. Mild degenerative changes. There are small Achilles enthesophytes and plantar spurs bilaterally. There is soft tissue prominence much greater on the right than the left, no radiopaque foreign bodyis seen. IMPRESSION: Extensive soft tissue edema on the right, milder soft tissue edema on the left. WSN: [id number] Ordering Physician: Madeleine Carlos Dictated By: Elder Farah MD Dictated Date/Time: 05/05/20 4:21 pm Reviewed By: Elder Farah MD Signed By: Elder Farah MD Signed Date/Time: 05/05/20 4:21 pm Transcribed By: ALESSANDRO Transcribed Date/Time: 05/05/20 4:18 pm * Exam Date Time Procedure Performing Provider Status 05/05/20 1:14 AM Chest Portable Heike Garcia; Auth (Ve rified) Notes: (Chest Portable) Reason For Exam: Shortness of Breath, Fever;Other: RESULT: Chest Portable Chest Portable CLINICAL INDICATION: Hx of Present Illness: diarrhea, cough, covid contacts; Reason: Other:; Shortness of Breath, Fever; Clinical Question(s): Pneumonia COMPARISON: None available. FINDINGS: There is a right internal jugular central line with tip standing into the right atrium. This can be pulled back about 3 cm to be at the cavoatrial junction. The cardiac silhouette is within normal limits. Hilar and mediastinal contours are normal. The lungs are clear. There is no pleural effusion, pneumothorax, or evidence of CHF. No acute osseous abnormality is noted. IMPRESSION: Tip of the right central line is in the right atrium. This can be pulled back about 3 cm to be at the cavoatrial junction. No acute cardiopulmonary process. WSN: [id number] Ordering Physician: Lisa Fam Dictated By: Tonia Pineda MD Dictated Date/Time: 05/05/20 8:45 am Reviewed By: Tonia Pineda MD Signed By: Tonia Pineda MD Signed Date/Time: 05/05/20 8:45 am Transcribed By: ALESSANDRO Transcribed Date/Time: 05/05/20 8:43 am Vital Signs Most recent to oldest [Reference Range]: 1 2 3 Height 162 cm (05/11/20 7:00 AM) 162 cm (05/10/20 11:51 PM) 162 cm (05/10/20 6:40 PM) Weight 50.7 kg (05/06/20 3:43 AM) Oxygen Saturation [94-100 %] 98 % (05/11/20 7:00 AM) 100 % (05/11/20 3:00 AM) 100 % (05/10/20 11:51 PM) Pulse Rate [55-90 bpm] 102 bpm *H* (05/11/20 7:00 AM) 103 bpm *H* (05/11/20 3:00 AM) 101 bpm *H* (05/10/20 11:51 PM) Body Mass Index [18.5-24.99] 19.32 (05/06/20 3:43 AM) Blood Pressure [90-138/55-84 mm Hg] 104/54mm Hg (05/11/20 7:00 AM) 113/50mm Hg (05/11/20 3:00 AM) 100/56mm Hg (05/10/20 11:51 PM) Respiratory Rate [16-30 br/min] 20 br/min (05/11/20 7:00 AM) 20 br/min (05/11/20 3:00 AM) 20 br/min (05/10/20 11:51 PM) Temperature [96.8-100.4 DegF] 97.0 DegF (05/11/20 7:00 AM) 98.6 DegF (05/11/20 3:00 AM) 98.4 DegF (05/10/20 11:51 PM) Mode of Delivery (Oxygen) Room air (05/11/20 7:00 AM) Room air (05/11/20 3:00 AM) Room air (05/10/20 11:51 PM) Blood pressure sites Arm, left (05/11/20 7:00 AM) Arm, left (05/11/20 3:00 AM) Arm, left (05/10/20 11:51 PM) Temperature Route Oral (05/11/20 7:00 AM) Oral (05/11/20 3:00 AM) Oral (05/10/20 11:51 PM) Dry Weight 50.7 kg (05/06/20 3:43 AM)
--- OUTSIDE RECORDS SUMMARY | 2023-03-10 19:15 | XMS_ITS | Continuity of Care Document ---
Author Name Unknown Organization [facility] ter Address [address] [place] [address]- Care Team Providers Care Vocational Aide Name Role Phone Carlos Madrigal MD Primary Care Physician [phone] Encounter [facility] Date(s): 07/02/20 - 07/15/[address] [address]- Discharge Disposition: A-Transfer VNA/Home Health Attending Physician: Juan Sharp MD Admitting Physician: August Reeves MD Referring Physician: Not on Staff, Referring [...] opioid drug. Start Date: 05/10/20 Status: Ordered amoxicillin-clavulanate 875 mg-125 mg oral tablet 1 tablet, By Mouth, 2 times a day, for 3 days, # 5 tablet, 0 Refills, Acute 07/18/20 6:45:00 EDT, 07/15/20 6:45:00 EDT, Tablet, [facility], Partial fill upon patient request if the prescription is for a schedule II opioid drug., 162, cm,... Start Date: 07/15/20 Stop Date: 07/18/20 Status: Ordered apixaban = 5 mg, By [...] Date: 05/11/20 Stop Date: 05/17/20 Status: Ordered ferrous sulfate 325 mg oral [...] opioid drug. Start Date: 05/10/20 Status: Ordered metroNIDAZOLE 500 mg oral tablet 1 tablet = 500 mg, By Mouth, Every 8 hours, for 3 days, # 8 tablet, 0 Refills, Acute 07/18/20 6:44:00 EDT, 07/15/20 6:44:00 EDT, Tablet, [facility], Partial fill upon patient request ifthe prescription is for a schedule II opioid drug.,... Start Date: 07/15/20 Stop Date: 07/18/20 Status: Ordered oxyCODONE 5 mg oral tablet 5 mg, 1, tablet, By Mouth, Every 3 hours, PRN, for 7 days, # 15 tablet, Refills 0, Tot. Refills 0, Acute 07/22/20 6:44:00 EDT, Pain , Severe, 07/15/20 6:44:00 EDT, Route to Pharmacy Electronically, [facility], Partial fill upon patient r... Start Date: 07/15/20 Stop Date: 07/22/20 Status: Ordered oxyCODONE 5 mg oral tablet 5 mg, Tablet, By Mouth, Every 3 hours, PRN for Pain , Severe, Routine, 07/05/20 7:50:00 EST Start Date: 07/05/20 Stop Date: 07/15/20 Status: Discontinued Tylenol 325 mg oral tablet 650 mg, 2, tablet, By Mouth, Every 4 hours, for 7 days, # 84 tablet, Refills 0, Tot. Refills 0, Acute 07/22/20 6:45:00 EDT, 07/15/20 6:45:00 EDT, Route to Pharmacy Electronically, [facility], Partial fill upon patient request if the pres... Start Date: 07/15/20 Stop Date: 07/22/20 Status: Ordered Vital-D By Mouth, Daily, 0 Refills, Maintenance, 05/06/20 4:02:00 EST, Partial fill upon patient request ifthe prescription is for a schedule II opioid drug. Start Date: 05/06/20 Status: Ordered Problem List Condition Effective Dates Status Health Status Inform ant Direct hyperbilirubinemia(Confirmed) Active Septic shock(Confirmed) Active Results Orders for Microbiology Reports Name Date Blood Culture 07/06/20 Blood Culture #2 07/06/20 Urine Culture 07/04/20 Anaerobic Culture (ANAEROBIC CULTURE) 07/03/20 Tissue Culture w/ Gram Smear (TISSUE/BIO PSY CULT.) 07/03/20 Urine Culture (URINE CULTURE) 07/02/20 Blood Culture 07/02/20 Blood Culture #2 07/02/20 Microbiology Reports TEST:Blood Culture STATUS:Auth (Verified) BODY SITE: SOURCE:Blood COLLECTED DATE/TIME:07/06/20 8:10 AM Blood Culture SPECIMEN DESCRIPTION : BLOOD RA SPECIAL REQUESTS : NONE CULTURE : NO GROWTH 5 DAYS. REPORT STATUS : FINAL 07/11/2020 TEST:Blood Culture, Second Order STATUS:Auth (Verified) BODY SITE: SOURCE:Blood COLLECTED DATE/TIME:07/06/20 8:10 AM Blood Culture, Second Order SPECIMEN DESCRIPTION : BLOOD LA SPECIAL REQUESTS : NONE CULTURE : NO GROWTH 5 DAYS. REPORT STATUS : FINAL 07/11/2020 TEST:Urine Culture STATUS:Auth (Verified) BODY SITE: SOURCE:URINE COLLECTED DATE/TIME:07/04/20 5:14 PM Urine Culture SPECIMEN DESCRIPTION : URINE CLEAN CATCH/MIDSTREAM SPECIAL REQUESTS : NONE CULTURE : NO GROWTH REPORT STATUS : FINAL 07/06/2020 TEST:Anaerobic Culture STATUS:Auth (Verified) BODY SITE: SOURCE:TISSUE1 COLLECTED DATE/TIME:07/03/20 4:33 PM Anaerobic Culture SPECIMEN DESCRIPTION : TISSUE SACRAL WOUND SPECIAL REQUESTS : NONE CULTURE : NO ANAEROBES ISOLATED REPORT STATUS : FINAL 07/08/2020 TEST:Tissue/Biopsy Culture STATUS:Auth (Verified) BODY SITE: SOURCE:TISSUE1 COLLECTED DATE/TIME:07/03/20 4:33 PM Tissue/Biopsy Culture SPECIMEN DESCRIPTION : TISSUE SACRAL WOUND SPECIAL REQUESTS : NONE GRAM STAIN : 1+ WHITE BLOOD CELLS NO ORGANISMS SEEN CULTURE : 2+ STREPTOCOCCI, GROUP G BETA HEMOLYTIC. SUSCEPTIBILITY TESTING NOT ROUTINELY PERFORMED ON THIS ISOLATE. 2+ STAPH. SPECIES, NOT STAPH. AUREUS SUSCEPTIBILITY TESTING NOT ROUTINELY PERFORMED ON THIS ISOLATE. Please consult the laboratory ([phone]) within 7 days if more definitive studies are clinically indicated. REPORT STATUS : FINAL 07/06/2020 TEST:Urine Culture STATUS:Auth (Verified) BODY SITE: SOURCE:URINE COLLECTED DATE/TIME:07/02/20 9:45 PM Urine Culture SPECIMEN DESCRIPTION : URINE SPECIAL REQUESTS : NONE CULTURE : Mixed bacterial kyler, indicative of urogenital contamination. REPORT STATUS : FINAL 07/04/2020 TEST:Blood Culture STATUS:Auth (Verified) BODY SITE: SOURCE:Blood COLLECTED DATE/TIME:07/02/20 6:58 PM Blood Culture SPECIMEN DESCRIPTION : BLOOD L ARM SPECIAL REQUESTS : CRITICAL VALUE CALLED AND VERIFIED BY READBACK FOR: GRAM NEGATIVE RODS TO [id number] IN S2, 07/05/20 1856 BY [id number]. CULTURE : PORPHYROMONAS(BACTEROIDES) ASACCHAROLYTICA BETA LACTAMASE NEGATIVE Further identification to follow. No target organisms detected using the [employer] BCID panel. This panel includes 24 bacterial and fungal targets and 3 resistance mechanisms. REPORT STATUS : FINAL 07/09/2020 ORGANISM PORPHYROMONAS(BACTEROIDES) ASACCHAROLYTICA BETA LACTAMASE NEGATIVE METHOD ANO2 ETEST GRADIENT STRIP (MCG/ML) AMPICILLIN/SULBACTAM NOT DONE CLINDAMYCIN >256 RESISTANT METRONIDAZOLE 0.25 SUSCEPTIBLE MEROPENEM NOT DONE PENICILLIN NOT DONE PIPERACILLIN/TAZOBAC NOT DONE TEST:Blood Culture, Second Order STATUS:Auth (Verified) BODY SITE: SOURCE:Blood COLLECTED DATE/TIME:07/02/20 6:55 PM Blood Culture, Second Order SPECIMEN DESCRIPTION : BLOOD R ARM SPECIAL REQUESTS : NONE CULTURE : NO GROWTH 5 DAYS. REPORT STATUS : FINAL 07/07/2020 Radiology Reports * Exam Date Time Procedure Performing Provider Status 07/04/20 12:30 AM Chest Portable Reji Almeida (Verified) Notes: (Chest Portable) Reason For Exam: Postop RESULT: Chest Portable Chest Portable INDICATION: Postoperative evaluation, decubitus ulcer debridement. COMPARISON: 05/05/2020. FINDINGS: LINES AND TUBES: None. LUNGS AND PLEURA: Lungs remain mildly hyperexpanded and clear. No pleural effusion. No pneumothorax. HEART, MEDIASTINUM AND JOSEY: Heart is normal in size. Normal upper mediastinal and hilar contour. BONES AND SOFT TISSUES: No acute abnormality. IMPRESSION: COPD changes. No acute abnormality. WSN: [id number] Ordering Physician: Osmany Kennedy Dictated By: Elder Farah MD Dictated Date/Time: 07/04/20 7:49 am Reviewed By: Elder Farah MD Signed By: Elder Farah MD Signed Date/Time: 07/04/20 7:49 am Transcribed By: ALESSANDRO Transcribed Date/Time: 07/04/20 7:47 am Vital Signs Most recent to oldest [Reference Range]: 1 2 3 Height 162 cm (07/15/20 7:57 AM) 162 cm (07/14/20 7:00 PM) 162 cm (07/14/20 4:04 PM) Weight 51.2 kg (07/06/20 9:00 AM) 51.2 kg (07/06/20 4:13 AM) 62.5 kg (07/04/20 1:44 PM) Oxygen Saturation [94-100 %] 99 % (07/15/20 7:57 AM) 97 % (07/15/20 4:00 AM) 98 % (07/14/20 11:00 PM) Pulse Rate [55-90 bpm] 99 bpm *H* (07/15/20 7:57 AM) 101 bpm *H* (07/15/20 4:00 AM) 98 bpm *H* (07/14/20 11:00 PM) Body Mass Index [18.5-24.99] 19.32 (07/03/20 3:52 PM) 19.32 (07/03/20 11:58 AM) Blood Pressure [90-138/55-84 mm Hg] 123/67mm Hg (07/15/20 7:57 AM) 130/67mm Hg (07/15/20 4:00 AM) 127/64mm Hg (07/14/20 11:00 PM) Respiratory Rate [16-30 br/min] 16 br/min (07/15/20 7:57 AM) 18 br/min (07/15/20 4:00 AM) 18 br/min (07/14/20 11:27 PM) Temperature [96.8-100.4 DegF] 98.4 DegF (07/15/20 7:57 AM) 97.6 DegF (07/15/20 4:00 AM) 97.9 DegF (07/14/20 11:00 PM) Liters per Minute 6 L/min (07/03/20 5:38 PM) Mode of Delivery (Oxygen) Room air (07/15/20 7:57 AM) Room air (07/15/20 4:00 AM) Room air (07/14/20 11:00 PM) Blood pressure sites Arm, left (07/15/20 7:57 AM) Arm, left (07/15/20 4:00 AM) Arm, left (07/14/20 11:00 PM) Temperature Route Oral (07/15/20 7:57 AM) Oral (07/15/20 4:00 AM) Oral (07/14/20 11:00 PM) Dry Weight 50.7 kg (07/03/20 11:58 AM) Weight Obtained Via Bed scale (07/03/20 11:58 AM)
--- OUTSIDE RECORDS SUMMARY | 2023-03-10 19:15 | XMS_ITS | Continuity of Care Document ---
Author Name Unknown Organization [facility] Address [address] [place] [address]- Care Team Providers Care Dam Tender Assistant Name Role Phone Carlos Madrigal MD Primary Care Physician Encounter [facility] [id number] Date(s): 05/19/20 - 06/18/20 [facility] [address] [place], [place] [address] Attending Physician: Susannah Dave Admitting Physician: Susannah Dave Referring Physician: AdmtrSusannah Allergies, Adverse Reactions, Alerts No Known Medication [...] opioid drug. Start Date: 05/10/20 Status: Ordered Vital-D By Mouth, Daily, 0 Refills, Maintenance, 05/06/20 4:02:00 EST, Partial fill upon patient request ifthe prescription is for a schedule II opioid drug. Start Date: 05/06/20 Status: Ordered
--- OUTSIDE RECORDS SUMMARY | 2023-03-10 19:15 | XMS_ITS | Continuity of Care Document ---
Author Name Unknown Organization [facility] ter Address [address] [place] [address]- Care Team Providers Care Eligibility Analyst Name Role Phone Carlos Madrigal MD Primary Care Physician Encounter [facility] [id number] Date(s): 05/31/20 - 06/01/[address] [address]- Encounter Diagnosis Lab test positive for detection of COVID-19 virus(Final) - 05/31/20 Anemia(Final) - 05/31/20 Discharge Disposition: A-Transfer SNF Attending Physician: Shanta Mcguire MD Admitting Physician: Shanta Mcguire MD Referring Physician: Not on Staff, Referring [...] opioid drug. Start Date: 05/06/20 Status: Ordered Vital Signs Most recent to oldest [Reference Range]: 1 2 3 Oxygen Saturation [94-100 %] 98 % (05/31/20 11:40 PM) 99 % (05/31/20 9:09 PM) 98 % (05/31/20 7:00 PM) Pulse Rate [55-90 bpm] 88 bpm (05/31/20 11:40 PM) 86 bpm (05/31/20 9:09 PM) 88 bpm (05/31/20 7:00 PM) Blood Pressure [90-138/55-84 mm Hg] 125/60mm Hg (05/31/20 11:40 PM) 124/63mm Hg (05/31/20 9:09 PM) 124/54mm Hg (05/31/20 7:00 PM) Respiratory Rate [16-30 br/min] 20 br/min (05/31/20 11:40 PM) 20 br/min (05/31/20 9:09 PM) 21 br/min (05/31/20 7:00 PM) Temperature [96.8-100.4 DegF] 98.8 DegF (05/31/20 11:40 PM) 98.5 DegF (05/31/20 5:30 PM) Mode of Delivery (Oxygen) Room air (05/31/20 11:40 PM) Room air (05/31/20 9:09 PM) Room air (05/31/20 7:00 PM) Blood pressure sites Arm, left (05/31/20 11:40 PM) Arm, left (05/31/20 9:09 PM) Arm, left (05/31/20 7:00 PM) Temperature Route Oral (05/31/20 11:40 PM) Oral (05/31/20 5:30 PM) Weight Obtained Via UTO (05/31/20 5:00 PM) Dry Weight Obtained Via UTO (05/31/20 5:00 PM)
--- OUTSIDE RECORDS SUMMARY | 2023-03-10 19:15 | XMS_ITS | Continuity of Care Document ---
Author Name Unknown Organization [facility] Address Unknown Care Team Providers Care Telephone Lineman Name Role Phone Carlos Madrigal MD Primary Care Physician [phone] [place] [facility] [place] 03/08/20 - 01/21/21 [facility] Attending Physician: Norris Polanco MD Referring Physician: Demi Wheatley MD Allergies, Adverse Reactions, Alerts No Known [...] Start Date: 05/10/20 Status: Ordered Referral to [facility] Referral to [facility], See Instructions, # 1 [...]
--- NOTE | 2023-03-10 19:20 | HO.SKINPHOTO ---
Location: Category: Stage: Length: Width: Depth: cm Location: Category: Stage: Length: Width: Depth: cm Location: Category: Stage: Length: Width: Depth: cm Location: Category: Stage: Length: Width: Depth: cm Location: Category: Stage: Length: Width: Depth: cm Location: Category: Stage: Length: Width: Depth: cm
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
[2023-03-10 19:32] LABS: Hemoglobin 6.3 g/dl (12.0-16.0)
[2023-03-10 19:38] LABS: SLIDE REVIEW VERIFIED
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
[2023-03-10 20:00] VITALS: BP 97/55; PULSE 102; RESP 11; TEMP 35.9; O2SAT 100
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
--- NOTE | 2023-03-10 20:18 | PC.NURSE ---
pt legs rigid and locked, unable to bend or move apart. unknown how long this has been the case.
[2023-03-10] MEDS: cefEPime HCl 2 GM in 0.9 % Sodium Chloride 50 ML IV (20:38)
[2023-03-10 20:41] LABS: Reflex Lactate? Lactic Acid Added
[2023-03-10 20:57] LABS: Troponin-I High Sensitivity 15.4 ng/L (<3.5-17.0)
[2023-03-10 21:13] LABS: INTERNATIONAL NORM RATIO 1.3 (0.9-1.1); Prothrombin Time 15.2 SEC (11.1-13.3)
[2023-03-10 21:26] LABS: ~Lactic Acid-LAB USE ONLY 1.8 mmol/L (0.5-2.0)
--- NOTE | 2023-03-10 22:05 | PC.NURSE ---
Pt alert and oriented X3, refusing CT at this timeand refusing to be moved. Her daughter is at bedside, Dr. Strong at bedside to discuss importance of Ct and evaluate for admission. Pt was adamant she did not want to have CT or be moved from the bed. Dr. Strong explained the options to pt and daughters and states he will give them time to consider the options. Dauhters discussing with mother asking her to take medication that will help wth pain and then go to CT. This RN stepped out to give privacy for further family discussion. Daughter requesting pain medication and anxiety medication and then if she feels better she might get the CT done. This RN notified but she has not been accepted a pt yet. Will notify .
[2023-03-10] MEDS: fentaNYL citrate/PF 100 MCG/2 ML VIAL 25 MCG IVPUSH (22:30)
[2023-03-10] MEDS: iohexoL 350 MG/ML 100 ML INFUS..BTL IV (22:47)
--- NOTE | 2023-03-10 23:10 | PC.NURSE ---
notified of pain and updated on CT. ordered fentanyl and given per JUN. Pt went to radiology and abdominal CT complete. Pt requesting water and explained why she could not have at this time, mouth swabbed and mouth moisturizer applied.
[2023-03-10 23:13] VITALS: BP 97/50; PULSE 105; RESP 16; TEMP 36.4; O2SAT 94
--- NOTE | 2023-03-10 23:14 | PC.NURSE ---
This RN went in with to do a rectal exam and occult stool. Pt refused.
[2023-03-11] VITALS (15 sets, daily range): BP systolic 88–116; BP diastolic 43–75; PULSE 88–109; RESP 12–18; TEMP 35.4–36.7; O2SAT 96–100; BMI 17.5
--- NOTE | 2023-03-11 00:59 | PC.NURSE ---
pt in bed resting, daughter at bedside. 1st unit of RBC started. Bear hugger removed. temp 97.3.
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
[2023-03-11 03:19] LABS: Iron 88 mcg/dL (30-160); Percent Iron Saturation 60 % (15-50); Total Iron Binding Capacity 147 mcg/dL (228-428); Unsaturated Iron Binding 59 ug/dL
[2023-03-11] MEDS: Piperacillin Sodium/Tazobactam 4.5 GM in 0.9 % Sodium Chloride 100 ML IV ×3 (03:41→19:19)
[2023-03-11] MEDS: Acetaminophen 325 MG TABLET 650 MG PO (03:41)
[2023-03-11] MEDS: vancomycin HCL 1,000 MG in 0.9 % Sodium Chloride 250 ML 270 MG IV (05:22)
[2023-03-11 05:57] LABS: Lymphocytes Percent Auto 4.1 % (20-40); NRBC Pct Auto 0.2 /100WBC (0.0-0.2); PLT ABN DIST 1; SCAN SMEAR FLAG 1
[2023-03-11 05:59] LABS: Basophils Absolute Auto 0.1 X10*3/uL (0.0-0.2); Basophils Percent Auto 0.4 % (0-2); Eosinophils Absolute Auto 0.1 X10*3/uL (0.0-0.4); Eosinophils Percent Auto 0.2 % (0-4); Hematocrit 28.7 % (37.0-47.0); Hemoglobin 8.6 g/dl (12.0-16.0); Imm Gran Abs Auto 0.53 X10*3/uL (0.00-0.03); Imm Gran Pct Auto 1.8 % (0.0-0.4); Lymphocytes Absolute Auto 1.2 X10*3/uL (1.2-4.9); MANUAL DIFF FLAG SCAN; Mean Corpuscular Hemoglobin 23.8 pg (27.0-33.0); Mean Corpuscular Volume 79.3 fL (80.0-98.0); Monocytes Absolute Auto 0.8 X10*3/uL (0.1-1.2); Monocytes Percent Auto 2.5 % (2-11); Neutrophils Absolute Auto 26.9 x10*3/uL (2.0-8.3); Platelet Count 115 X10*3/uL (160-400); Red Blood Count 3.62 X10*6/uL (4.20-5.50); White Blood Count 29.6 X10*3/uL (4.8-10.8)
[2023-03-11] MEDS: Morphine Sulfate 2 MG/ML CARTRIDGE IVPUSH ×3 (06:15→15:53)
[2023-03-11 06:20] LABS: SLIDE REVIEW VERIFIED
--- NOTE | 2023-03-11 06:22 | PC.NURSE ---
Pt alert and oriented X3, expressing 9/10 pain in feet. Spoke with and pt medicated with PRN medication per JUN. Pt moved into airloss bed and repositioned, abd pad at sacral wound changed by this RN at that time. Barrier cream applied to katie area and buttocks. Pt placed back on bear hugger due to rectal temp at 96.3. updated. 2nd unit of RBCs running. Lung sounds clear at this time. Pt given PO fluids and mouth moisturizer applied.
[2023-03-11 06:24] LABS: Anion Gap 19 (12-20); Blood Urea Nitrogen 52 mg/dL (9-16); Calcium 7.3 mg/dL (8.4-10.2); Carbon Dioxide 13 mmol/L (22-29); Chloride 110 mmol/L (96-108); Creatinine Clr Calc Pharmacy 37.3; Estimated Glomerular Filt Rate 50; Glucose Random 87 mg/dL (60-115); Potassium 4.1 mmol/L (3.3-5.1); Sodium 138 mmol/L (135-145)
[2023-03-11 06:56] LABS: Folate 5.9 ng/mL (> or = 4.0); Vitamin B12 1255 pg/mL (200-900)
[2023-03-11] MEDS: 0.9 % Sodium Chloride Flush 3 ML SYRINGE IVFLUSH ×3 (07:14→22:43)
--- NOTE | 2023-03-11 07:15 | PHA.PROG ---
Admission Date/Time: March 11, 2023 02:45 Indication: Sepsis Weight in k.3 kg Adjusted body weight in Kg: [place] body weight in Kg: Obesity Dosing Indication % IBW: Serum Creatinine - Last 168 Hours 03/10/23 03/11/23 18:34 04:35 Creatinine 1.24 1.09 Estimated CrCl and GFR - Last 168 Hours 03/10/23 03/11/23 18:34 04:35 Estim Creat Clear Calc 32.8 37.3 Estimated GFR 43 50 Vancomycin Loading Dose: 1000mg x 1 Current Vancomycin Dosing Regimen: 500mg BID Vancomycin Monitoring using AUC goal of 400 - 600 range with trough as surrogate marker: 530 mg/L Date and Time for next Vancomycin Level to be drawn: 03/12/23 @1500 Pharmacist Comments on Vancomycin Plan: Predicted trough of 18.4 mg/L, will continue to monitor renal function and adjust appropriately Vancomycin dosing will take advantage of [employer] as a clinical decision support tool that uses Bayesian modeling to calculate individual patient's pharmacokinetic parameters and forecast the patient's drug concentration time course with the target goal AUC 24 range of 400 - 600 mg/L/hr.
--- NOTE | 2023-03-11 07:19 | PC.NURSE ---
pt is alert and oriented, skin pwd, respirations even and unlabored, ls clear, pt is reporting feet pain at 8/10 and while set the pt up with her breakfast kiran she kept reporting back pain and refusing to sit up to eat, this rn explained to the pt that she can't eat laying down that there are risk of choking and aspirations after few mint pt was able to sit up and started to eat her breakfast, pt's is frail in her appearance and is refusing to drink her ensure because she does not like it. pt is currently on a bear hugger, ns on the monitor and vs stable
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
--- NOTE | 2023-03-11 08:15 | PC.NURSE ---
dr laguerre from urology at bedside attempted a fernanod cath but unable to insert one at this time, plan to continue urine out put via peuriwick and bladder scan
--- NOTE | 2023-03-11 08:40 | PHA.MEDREC ---
Pharmacy Consult ? Medication Reconciliation Pharmacy has completed the medication reconciliation. Spoke to daughter Natasha over the phone and verified patient's medication list.
--- NOTE | 2023-03-11 08:59 | PC.NURSE ---
MARTINEZ at bedside, assisted the dr to roll the pt for evaluation of the wound. pt is expressing pain at 10/10 at this time, pt is also incontinent of very small amount of stool, pt cleaned up and repositioned on the left sided and supported with pillows,
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
--- NOTE | 2023-03-11 10:53 | PC.NURSE ---
lety huerta removed, current rectal temp at 98.1
--- NOTE | 2023-03-11 10:59 | P.CDIM_ITS ---
PROVIDER RESPONSE TEXT: To clarify, the appropriate diagnosis supported by the clinical indicators: CKD, please provide stage QUERY TEXT: PHYSICIAN'S DOCUMENTATION REQUEST Date of Query: 03/11/2023 10:25 AM EST Patient Name: Tiffani Trent Admit Date: 03/11/2023 Dear Miguel Angel Hines, A review of the medical record indicates additional documentation may be needed. Please review below and update the documentation accordingly. Clinical Indicators: ED: 03/10 - potassium within normal limits, no ADINA H&P: Assessment and plan: Elevated creatinine: ADINA versus CKD, monitor creatinine urine output. CR 1.24 BUN 60 GFR 43 Dehydration and hardly eating, Please clarify which of the following accurately represents the patient's renal status: ADINA vs CKD stage of the ckd CKD, please provide stage Other (explain) Clinically unable to determine (explain) Thank you, Merry Carpenter, CCS, CDIS Use of terms such as suspected, likely, concern for, or probable (associated with a specific diagnosi s that is being evaluated, monitored, or treated as if it exists) are acceptable and can be coded in the inpatient se tting, when documented at the time of discharge. Please use your independent medical judgment in providing your response. THIS QUERY IS PART OF THE PERMANENT MEDICAL RECORD
--- NOTE | 2023-03-11 11:35 | PC.NURSE ---
one of the pt's daughter at bedside and is saying that pt had her cell phone that was left at the bedside, this rn looked around for the cell phone but unable to locate the phone
--- NOTE | 2023-03-11 12:29 | PC.NURSE ---
frederick lopes from [facility] senior services if anybody needs to contact [phone] ext [phone] pt repositioned to her right sided and supported with pillows, pt also requested and received cranberry juice
--- NOTE | 2023-03-11 14:40 | PC.NURSE ---
pt really did not eat any of her lunch kiran, attempted to have two bites of the chicken sandwich but having some difficulty with chewing this lunch, pt might benefit from a chopped diet instead, pt did take two bites of her sherbert
--- NOTE | 2023-03-11 15:09 | PC.NURSE ---
report given to imc rn
--- NOTE | 2023-03-11 16:30 | PC.NURSE ---
underpads are wet , pt refusing to be changed , medicated with morphine 2 mg IV , pt is still refusing to be repositioned
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
[2023-03-11] MEDS: vancomycin HCL 500 MG in 0.9 % Sodium Chloride 100 ML 110 MG IV (17:37)
[2023-03-11] MEDS: ondansetron HCL 4 MG/2 ML VIAL IVPUSH (22:41)
[2023-03-12] VITALS (7 sets, daily range): BP systolic 73–145; BP diastolic 40–73; PULSE 94–114; RESP 12–20; TEMP 35.9–36.3; O2SAT 96–97; BMI 18.2
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
[2023-03-12] MEDS: Piperacillin Sodium/Tazobactam 4.5 GM in 0.9 % Sodium Chloride 100 ML IV ×3 (02:53→18:46)
[2023-03-12] MEDS: vancomycin HCL 500 MG in 0.9 % Sodium Chloride 100 ML 110 MG IV (05:11)
[2023-03-12] MEDS: Lactated Ringers 1,000 ML 125 ML IVCONT (06:10)
[2023-03-12] MEDS: Omeprazole 20 MG CAPSULE.DR PO (06:10)
--- NOTE | 2023-03-12 06:21 | PC.NURSE ---
Pt AOx4. Declined any type of patient care most of the night. Around 0300 pt allowed us to turn her and change her pad and dressing underneath on the sacram. This AM BP was low @ 89/51, notified . Fluids were ordered and hung as ordered. Pt resting comfortably in bed with yoon hugger on.
[2023-03-12 08:08] LABS: Anion Gap 17 (12-20); Blood Urea Nitrogen 57 mg/dL (9-16); Calcium 7.7 mg/dL (8.4-10.2); Carbon Dioxide 14 mmol/L (22-29); Chloride 113 mmol/L (96-108); Creatinine Clr Calc Pharmacy 33.1; Estimated Glomerular Filt Rate 43; Glucose Fasting 60 mg/dL (60-99); Potassium 4.4 mmol/L (3.3-5.1); Sodium 140 mmol/L (135-145)
[2023-03-12 08:26] LABS: Ferritin 457 ng/mL (10-250)
--- NOTE | 2023-03-12 09:11 | MHC.CM.PN ---
IMM 03/12/23, Pt lives with one of her daughter, and she told CM that her dtr could not keep up with her care, and that she wants to go home and have more care. CM discussed HCP with her, she said to speak with her daughter who will be here later today, CM to follow up. Pt. has used [facility] in the past. She has only Medicare for insurance, CM to refer to financial counseling to explore supplemental insurance. Pt has med equip at home of: hosp bed, walker, w/c, and she said she would go home via ambulance at DC. CM to follow and assist with DC plan.
[2023-03-12] MEDS: Enoxaparin Sodium 60 MG/0.6 ML SYRINGE 50 MG SUBCUT ×2 (09:25→20:37)
[2023-03-12] MEDS: Morphine Sulfate 2 MG/ML CARTRIDGE IVPUSH ×4 (09:26→20:39)
--- NOTE | 2023-03-12 10:20 | P.PNIM_ITS ---
Subjective Subjective Date of Service: 03/12/23 Interval History: thirsty Physical Exam 2 Vital Signs: Vital Signs: Last Vital Signs Temp 96.6 F L 03/12/23 08:00 Pulse 106 H 03/12/23 08:00 Resp 20 03/12/23 08:00 BP 86/58 L 03/12/23 08:00 Pulse Ox 96 03/12/23 08:00 O2 Del Method Room Air 03/12/23 08:00 O2 Flow Rate 2 03/11/23 01:35 Oxygen Flow Rate 2 03/11/23 01:38 BMI result Body Mass Index 17.5 confused, frail, alert, large sacral ulcer oriented times 3, reasonable insight Objective Data Active Medications Acetaminophen (Acetaminophen 325 Mg Tablet) 650 mg PO Q6H PRN PRN Reason: Pain, Mild (Pain Scale 1-3) Last Admin: 03/11/23 03:41 Dose: 650 mg Documented By: PERRY Enoxaparin Sodium (Enoxaparin Sodium 60 Mg/0.6 Ml Syringe) 50 mg 1 mg/kg (50 mg) SUBCUT Q12H [facility] Last Admin: 03/12/23 09:25 Dose: 50 mg Documented By: ALEKSANDRA Piperacillin Sod/Tazobactam (Sod 4.5 gm/ Sodium Chloride) 100 mls @ 200 mls/hr IV Q8H [facility] Last Infusion: 03/12/23 04:50 Dose: Infused Documented By: SASHA Vancomycin HCl 500 mg/ Sodium (Chloride) 110 mls @ 110 mls/hr IV Q12H [facility] Last Infusion: 03/12/23 06:17 Dose: Infused Documented By: SASHA Lactated Ringer's (Lr) 1,000 mls @ 125 mls/hr IVCONT .Q8H ONE Stop: 03/12/23 13:58 Last Admin: 03/12/23 06:10 Dose: 125 mls/hr Documented By: SASHA Melatonin (Melatonin 3 Mg Tablet) 6 mg PO BEDTIME PRN PRN Reason: Insomnia Morphine Sulfate (Morphine Sulfate 2 Mg/Ml Cartridge) 2 mg IVPUSH Q4H PRN; Protocol PRN Reason: Pain, Severe (Pain Scale 7-10) Last Admin: 03/12/23 09:26 Dose: 2 mg Documented By: HO.DOBROB Omeprazole (Omeprazole 20 Mg Capsule.) 20 mg PO DAILY@0630 [facility] Last Admin: 03/12/23 06:10 Dose: 20 mg Documented By: SASHA Ondansetron HCl (Ondansetron Hcl 4 Mg/2 Ml Vial) 4 mg IVPUSH Q8H PRN PRN Reason: Nausea and Vomiting Last Admin: 03/11/23 22:41 Dose: 4 mg Documented By: SASHA Pharmacy Consult (Consult Rx Vancomycin Dosing) 1 each MISCELLANE DAILY PRN PRN Reason: Consult order Sodium Chloride (0.9 % Sodium Chloride Flush 3 Ml Syringe) 3 ml IVFLUSH QSHIFT [facility] Last Admin: 03/12/23 09:15 Dose: Not Given Documented By: ALEKSANDRA Non-Admin Reason: IV Running Labs 03/11/23 04:35 03/12/23 06:36 Labs: Laboratory Results - last 24 hr 03/12/23 06:36 Anion Gap 17 Estim Creat Clear Calc 33.1 Estimated GFR 43 Fasting Glucose 60 Calcium 7.7 L Ferritin 457 H Microbiology Microbiology Results: Microbiology 03/10/23 18:34 Blood Culture - Preliminary Blood - Venous Gram negative scarlett 03/10/23 18:34 Blood Culture - Preliminary Blood - Venous No growth after 24 hours. 03/10/23 18:16 Gram Stain - Final Decubitus Ulcer Routine Culture - Preliminary Culture in progress. Assessment and Plan (1) Sacral wound: Status: Acute Plan 72F PMH DVT not on AC, sacral ulcer, biba after found dissheveled in feces with large sacral ulcer sepsis due to pna and stage iv sacral ulcer with possible om vanc, zosyn, surgery following, id following, follow up cultures(GNR, check UA) Severe microcytic anemia Likely inflammatory Transfused and hemoglobin improved appropriately will challenge with therapeutic lovenox, monitor History of DVT, still present right common femoral vein starting therapeutic lovenox hypotension due to dehydration, 3rd spacing from malnutrition iv albumin, monitor rule out adrenal insufficiency, check am cortisol metabolic acidosis, nagma check urine studies Moderate protein calorie malnutrition ensure Full code reason for continued hospitalization: awaiting cultures Quality Stroke Does the patient have a stroke diagnosis?: No VTE Prior VTE?: No VTE Risk Level:: Medical - moderate - high VTE Device Contraindication: N/A - Device Ordered VTE Drug Contraindication: Treatment Not Indicated
--- NOTE | 2023-03-12 11:35 | MHC.CLN ---
RE: CONSULT PT IS MODERATELY MALNOURISHED QUALIFIES FOR NON-SEVERE MALNUTRITION IN THE CONTEXT OF CHRONIC ILLNESS PT WITH MODERATELY DEPLETED MUSCLE MASS AND SUBCUTANEOUS FAT WITH BMI 18.2 AND 27.5% WT LOSS X 2 YEARS. IN ADDITION, PT WITH INCREASED NUTRITION R/T PRESSURE INJURY POOR PO INTAKE DIET RX: CHOPPED-APPROPRIATE UPON INTERVIEW MEAL TRAY IN FRONT OF PT WITH <25% CONSUMED PT RECEPTIVE TO SUPPLEMENTS HOWEVER ONLY WANTS STRAWBERRY FLAVORED RECOMMEND ADDING MAGIC CUP TID AND ENSURE CLEAR TID MONITOR PO INTAKE CLOSELY SEE ALSO FULL CLINICAL NUTRITION ASSESSMENT
[2023-03-12] MEDS: Albumin Human 25 % 100 ML IV ×3 (11:40→14:48)
[2023-03-12 11:53] LABS: NRBC Pct Auto 0.3 /100WBC (0.0-0.2)
[2023-03-12 11:55] LABS: Hematocrit 31.1 % (37.0-47.0); Hemoglobin 10.2 g/dl (12.0-16.0); Mean Corpuscular HGB Conc 32.8 g/dl (31.0-35.0); Mean Corpuscular Hemoglobin 25.4 pg (27.0-33.0); Mean Corpuscular Volume 77.6 fL (80.0-98.0); Red Blood Count 4.01 X10*6/uL (4.20-5.50); Red Cell Distribution Width 24.6 % (11.0-16.0); White Blood Count 26.9 X10*3/uL (4.8-10.8)
[2023-03-12] MEDS: Acetaminophen 325 MG TABLET 650 MG PO (11:56)
[2023-03-12 11:59] LABS: PLT ABN DIST 1
[2023-03-12 12:39] LABS: Platelet Count 99 X10*3/uL (160-400)
--- NOTE | 2023-03-12 13:32 | PM.PNGS ---
Subjective Subjective Date of Service: 03/13/23 Interval history: refusing to be examined at this time no new events reported Physical Exam Vital Signs: Vital Signs: Last Vital Signs Temp 97.3 F 03/12/23 11:40 Pulse 114 H 03/12/23 11:40 Resp 20 03/12/23 11:40 BP 73/53 L 03/12/23 11:40 Pulse Ox 97 03/12/23 11:40 O2 Del Method Room Air 03/12/23 11:40 O2 Flow Rate 2 03/11/23 01:35 Oxygen Flow Rate 2 03/11/23 01:38 BMI result Body Mass Index 18.2 Const: Other: very frail looking, bedbound General: no acute distress Resp: Effort & Inspection: normal respiratory effort Cardio: Rate: tachycardic GI: Palpation (GI): Soft to palpation and not firm Extrem: Other: thick crusting on skin on anterior lower leg on left and right, c/w dry hyperkeratotic skin; with chronic stasis changes, edema; dark discoloration of 2nd, 3rd, 4th toes on left, 3rd toe on right, dry Objective Data Active Medications Acetaminophen (Acetaminophen 325 Mg Tablet) 650 mg PO Q6H PRN PRN Reason: Pain, Mild (Pain Scale 1-3) Last Admin: 03/12/23 11:56 Dose: 650 mg Documented By: ELMER Enoxaparin Sodium (Enoxaparin Sodium 60 Mg/0.6 Ml Syringe) 50 mg 1 mg/kg (50 mg) SUBCUT Q12H [facility] Last Admin: 03/12/23 09:25 Dose: 50 mg Documented By: ALEKSANDRA Piperacillin Sod/Tazobactam (Sod 4.5 gm/ Sodium Chloride) 100 mls @ 200 mls/hr IV Q8H [facility] Last Admin: 03/12/23 13:11 Dose: 200 mls/hr Documented By: ELMER Vancomycin HCl 500 mg/ Sodium (Chloride) 110 mls @ 110 mls/hr IV Q12H [facility] Last Infusion: 03/12/23 06:17 Dose: Infused Documented By: SASHA Lactated Ringer's (Lr) 1,000 mls @ 125 mls/hr IVCONT .Q8H ONE Stop: 03/12/23 13:58 Last Admin: 03/12/23 06:10 Dose: 125 mls/hr Documented By: SASHA Melatonin (Melatonin 3 Mg Tablet) 6 mg PO BEDTIME PRN PRN Reason: Insomnia Morphine Sulfate (Morphine Sulfate 2 Mg/Ml Cartridge) 2 mg IVPUSH Q4H PRN; Protocol PRN Reason: Pain, Severe (Pain Scale 7-10) Last Admin: 03/12/23 13:30 Dose: 2 mg Documented By: ELMER Omeprazole (Omeprazole 20 Mg Capsule.Dr) 20 mg PO DAILY@0630 [facility] Last Admin: 03/12/23 06:10 Dose: 20 mg Documented By: SASHA Ondansetron HCl (Ondansetron Hcl 4 Mg/2 Ml Vial) 4 mg IVPUSH Q8H PRN PRN Reason: Nausea and Vomiting Last Admin: 03/11/23 22:41 Dose: 4 mg Documented By: SASHA Pharmacy Consult (Consult Rx Vancomycin Dosing) 1 each MISCELLANE DAILY PRN PRN Reason: Consult order Sodium Chloride (0.9 % Sodium Chloride Flush 3 Ml Syringe) 3 ml IVFLUSH [facility] Last Admin: 03/12/23 09:15 Dose: Not Given Documented By: ALEKSANDRA Non-Admin Reason: IV Running Labs 03/13/23 06:50 03/12/23 06:36 Labs: Laboratory Results - last 24 hr 03/12/23 03/12/23 06:36 11:18 MCV 77.6 L MCH 25.4 L MCHC 32.8 RDW 24.6 H Plt Count 99 L MPV Not Reportable Absolute Nucleated RBC 0.080 H Nucleated RBC % (auto) 0.3 H Anion Gap 17 Estim Creat Clear Calc 33.1 Estimated GFR 43 Fasting Glucose 60 Calcium 7.7 L Ferritin 457 H Microbiology Microbiology Results: Microbiology 03/10/23 18:16 Gram Stain - Final Decubitus Ulcer Routine Culture - Preliminary Culture in progress. 03/10/23 18:34 Blood Culture - Preliminary Blood - Venous Gram negative scarlett 03/10/23 18:34 Blood Culture - Preliminary Blood - Venous No growth after 24 hours. Procedures Date of Service Date of Service: 03/13/23 Progress Note: A&P Assessment and plan (1) Sacral wound: Status: Acute Assessment and Plan: pt refusing exam of back at this time (2) Discoloration of skin of toe: Status: Acute Assessment and Plan: suggestive of PAD recommend Vascular eval, although unlikely that pt may be able to go through invasive intervention in view of frailty will revisit tomorrow to see examined sacral ulcers no surgical intervention for leg hyperkeratotic lesions for now Time Spent With Patient Time: Total time managing care of this patient today ____ minutes. Quality Stroke Does the patient have a stroke diagnosis?: No VTE Prior VTE?: No VTE Risk Level:: Medical - moderate - high VTE Device Contraindication: N/A - Device Ordered VTE Drug Contraindication: Treatment Not Indicated
[2023-03-12] MEDS: Midodrine HCl 5 MG TABLET PO ×2 (14:48→20:37)
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
[2023-03-12 15:57] LABS: Vancomycin Trough 25.1 mcg/mL (10.0-20.0)
--- NOTE | 2023-03-12 16:05 | HE.PHANOTE ---
RE: carlos PAtient's trough on 03/12 came back at 25.1; held dose for today and put in for Q24H to start tomorrow @0800. Getting level before next dose at 0600. Predicted trough of 13.7; AUC of 443. Will continue to monitor and adjust as neccesary
--- NOTE | 2023-03-12 19:19 | PC.NURSE ---
Patient uncooperative, resistive to care - does not want to be reposition,
[2023-03-12] MEDS: 0.9 % Sodium Chloride Flush 3 ML SYRINGE IVFLUSH (23:19)
[2023-03-13] VITALS: BP 96/55; PULSE 68; RESP 18; TEMP 35.6; O2SAT 94
[2023-03-13] MEDS: Morphine Sulfate 2 MG/ML CARTRIDGE IVPUSH ×4 (00:20→18:49)
[2023-03-13 03:43] VITALS: BP 104/54; PULSE 84; RESP 18; TEMP 36; O2SAT 100
[2023-03-13 03:53] LABS: Appearance Urine Turbid; Color Urine Dark Yellow; Glucose Urine UA Negative (Negative); Leukocyte Esterase Urine Moderate (2+) (Negative); Nitrite Urine Negative (Negative); Specific Gravity - Urine >= 1.030 (1.005-1.025); UMIC TRIGGER UACC YES; Urine Blood Large (3+) (Negative); Urine Ketones Trace mg/dL (Negative); Urine Protein 100 (2+) mg/dL (Neg-Trace)
[2023-03-13 04:02] LABS: Bacteria Urine 2+ (None Seen); Calcium Oxalate Crystals Urine Present; Granular Casts Urine Present; UACC Culture Trigger YES; WBC Urine >50 /HPF (0-5)
[2023-03-13] MEDS: Piperacillin Sodium/Tazobactam 4.5 GM in 0.9 % Sodium Chloride 100 ML IV ×3 (04:05→18:50)
[2023-03-13 04:21] LABS: Amphetamine Screen Urine Not Detected (Not Detect); Barbiturates, Urine Not Detected (Not Detect); Benzodiazepines Screen Urine Not Detected (Not Detect); Cannabinoid Screen Urine Not Detected (Not Detect); Cocaine Screen Urine Not Detected (Not Detect); Fentanyl, urine POSITIVE (Not Detect); Opiate Screen Urine POSITIVE (Not Detect); Phencyclidine Screen Urine Not Detected (Not Detect)
[2023-03-13 04:43] LABS: Creatinine Urine 69.78 mg/dL; Potassium Urine Random 87.4 mmol/L; Total Protein Urine Random 199 mg/dL (<12)
[2023-03-13 07:31] LABS: Hematocrit 24.3 % (37.0-47.0); Hemoglobin 7.9 g/dl (12.0-16.0); Mean Corpuscular HGB Conc 32.5 g/dl (31.0-35.0); Mean Corpuscular Hemoglobin 25.7 pg (27.0-33.0); Mean Corpuscular Volume 79.2 fL (80.0-98.0); Mean Platelet Volume 9.7 fL (9.4-12.3); NRBC Pct Auto 0.1 /100WBC (0.0-0.2); Red Blood Count 3.07 X10*6/uL (4.20-5.50); Red Cell Distribution Width 24.8 % (11.0-16.0); White Blood Count 17.3 X10*3/uL (4.8-10.8)
[2023-03-13 07:38] LABS: Platelet Count 75 X10*3/uL (160-400)
[2023-03-13 08:04] LABS: Cortisol Random 18.1 ug/dL
--- NOTE | 2023-03-13 08:04 | PM.PNGS ---
Subjective Subjective Date of Service: 03/13/23 Interval history: no events reported still refusing to have sacral wound examined Physical Exam Vital Signs: Vital Signs: Last Vital Signs Temp 96.8 F 03/13/23 03:43 Pulse 84 03/13/23 03:43 Resp 18 03/13/23 03:43 BP 104/54 L 03/13/23 03:43 Pulse Ox 100 03/13/23 03:43 O2 Del Method Room Air 03/13/23 03:43 O2 Flow Rate 2 03/11/23 01:35 Oxygen Flow Rate 2 03/11/23 01:38 BMI result Body Mass Index 18.2 Const: Other: very frail looking, General: comfortable and no acute distress Resp: Effort & Inspection: normal respiratory effort GI: Palpation (GI): Soft to palpation, not firm and nontender Extrem: Other: thick, crusting, hyperkeratotic lesions on the anterior lower legs with chronic stasis changes, discoloration of toes Objective Data Active Medications Acetaminophen (Acetaminophen 325 Mg Tablet) 650 mg PO Q6H PRN PRN Reason: Pain, Mild (Pain Scale 1-3) Last Admin: 03/12/23 11:56 Dose: 650 mg Documented By: EMLER Enoxaparin Sodium (Enoxaparin Sodium 60 Mg/0.6 Ml Syringe) 50 mg 1 mg/kg (50 mg) SUBCUT Q12H [facility] Last Admin: 03/12/23 20:37 Dose: 50 mg Documented By: GRACE Piperacillin Sod/Tazobactam (Sod 4.5 gm/ Sodium Chloride) 100 mls @ 200 mls/hr IV Q8H [facility] Last Infusion: 03/13/23 05:19 Dose: Infused Documented By: GRACE Vancomycin HCl 500 mg/ Sodium (Chloride) 110 mls @ 110 mls/hr IV Q24H [facility] Melatonin (Melatonin 3 Mg Tablet) 6 mg PO BEDTIME PRN PRN Reason: Insomnia Midodrine (Midodrine Hcl 5 Mg Tablet) 5 mg PO TID [facility] Last Admin: 03/12/23 20:37 Dose: 5 mg Documented By: GRACE Morphine Sulfate (Morphine Sulfate 2 Mg/Ml Cartridge) 2 mg IVPUSH Q3H PRN; Protocol PRN Reason: Pain, Severe (Pain Scale 7-10) Last Admin: 03/13/23 05:59 Dose: 2 mg Documented By: GRACE Omeprazole (Omeprazole 20 Mg Capsule.) 20 mg PO DAILY@0630 [facility] Last Admin: 03/13/23 05:41 Dose: Not Given Documented By: GRACE Non-Admin Reason: Patient Refused Ondansetron HCl (Ondansetron Hcl 4 Mg/2 Ml Vial) 4 mg IVPUSH Q8H PRN PRN Reason: Nausea and Vomiting Last Admin: 03/11/23 22:41 Dose: 4 mg Documented By: SASHA Pharmacy Consult (Consult Rx Vancomycin Dosing) 1 each MISCELLANE DAILY PRN PRN Reason: Consult order Sodium Chloride (0.9 % Sodium Chloride Flush 3 Ml Syringe) 3 ml IVFLUSH QSHIFT [facility] Last Admin: 03/12/23 23:19 Dose: 3 ml Documented By: GRACE Labs 03/13/23 06:50 03/12/23 06:36 Labs: Laboratory Results - last 24 hr 03/12/23 03/12/23 03/12/23 06:36 11:18 15:22 MCV 77.6 L MCH 25.4 L MCHC 32.8 RDW 24.6 H Plt Count 99 L MPV Not Reportable Absolute Nucleated RBC 0.080 H Nucleated RBC % (auto) 0.3 H Anion Gap 17 Estim Creat Clear Calc 33.1 Estimated GFR 43 Fasting Glucose 60 Calcium 7.7 L Ferritin 457 H Urine Color Urine Appearance Urine pH Ur Specific [place] Urine Protein Urine Glucose (UA) Urine Ketones Urine Blood Urine Nitrite Ur Leukocyte Esterase Urine RBC Urine WBC Ur Squamous Epith Cells Calcium Oxalate Crystal Urine Bacteria Hyaline Casts Granular Casts U Random Total Protein Ur Random Sodium Ur Random Potassium Ur Random Chloride Urine Creatinine Vancomycin Trough 25.1 H* Urine Opiates Screen Urine Fentanyl Screen Ur Barbiturates Screen Ur Phencyclidine Scrn Ur Amphetamines Screen U Benzodiazepines Scrn Urine Cocaine Screen U Marijuana (THC) Screen 03/12/23 03/13/23 20:30 06:50 MCV 79.2 L MCH 25.7 L MCHC 32.5 RDW 24.8 H Plt Count 75 L MPV 9.7 Absolute Nucleated RBC 0.020 H Nucleated RBC % (auto) 0.1 Anion Gap Estim Creat Clear Calc Estimated GFR Fasting Glucose Calcium Ferritin Urine Color Dark Yellow Urine Appearance Turbid Urine pH 5.0 Ur Specific [place] >= 1.030 H Urine Protein 100 (2+) H Urine Glucose (UA) Negative Urine Ketones Trace Urine Blood Large (3+) H Urine Nitrite Negative Ur Leukocyte Esterase Moderate (2+) H Urine RBC 11-20 H Urine WBC >50 Ur Squamous Epith Cells 3-5 Calcium Oxalate Crystal Present Urine Bacteria 2+ Hyaline Casts 3-5 Granular Casts Present U Random Total Protein 199 H Ur Random Sodium 31.0 Ur Random Potassium 87.4 Ur Random Chloride 28.0 Urine Creatinine 69.78 Vancomycin Trough Urine Opiates Screen POSITIVE H Urine Fentanyl Screen POSITIVE H Ur Barbiturates Screen Not Detected Ur Phencyclidine Scrn Not Detected Ur Amphetamines Screen Not Detected U Benzodiazepines Scrn Not Detected Urine Cocaine Screen Not Detected U Marijuana (THC) Screen Not Detected Microbiology Microbiology Results: Microbiology 03/10/23 18:34 Blood Culture - Preliminary Blood - Venous No growth after 48 hours. 03/10/23 18:16 Gram Stain - Final Decubitus Ulcer Routine Culture - Preliminary Culture in progress. 03/10/23 18:34 Blood Culture - Preliminary Blood - Venous Gram negative scarlett Procedures Date of Service Date of Service: 03/13/23 Progress Note: A&P Assessment and plan (1) Sacral wound: Status: Acute Assessment and Plan: refusing to be examined at this time photographs taken by wound care nurse show generally good granulation with small patches of nonviable tissue would continue with current regimen with Dakin's solution change positions regularly I recommended vascular evaluation for toe discoloration Time Spent With Patient Time: Total time managing care of this patient today ____ minutes. Quality Stroke Does the patient have a stroke diagnosis?: No VTE Prior VTE?: No VTE Risk Level:: Medical - moderate - high VTE Device Contraindication: N/A - Device Ordered VTE Drug Contraindication: Treatment Not Indicated
[2023-03-13 08:08] VITALS: BP 84/52; PULSE 100; RESP 16; TEMP 35.9; O2SAT 100
[2023-03-13 08:09] LABS: Alanine Aminotransferase 7 U/L (0-31); Albumin Level 2.5 g/dL (3.5-5.0); Alkaline Phosphatase 110 U/L (39-117); Anion Gap 14 (12-20); Aspartate Amino Transferase 10 U/L (5-31); Bilirubin Direct 0.7 mg/dL (0.0-0.5); Bilirubin Total 1.1 mg/dL (0.0-1.0); Blood Urea Nitrogen 54 mg/dL (9-16); Calcium 7.6 mg/dL (8.4-10.2); Carbon Dioxide 18 mmol/L (22-29); Chloride 114 mmol/L (96-108); Creatinine Clr Calc Pharmacy 36.5; Estimated Glomerular Filt Rate 46; Glucose Fasting 59 mg/dL (60-99); Phosphorus 3.4 mg/dL (2.7-4.5); Potassium 2.7 mmol/L (3.3-5.1); Sodium 143 mmol/L (135-145); Total Protein 4.8 g/dL (6.5-8.0)
[2023-03-13 08:47] LABS: Glucose, Whole Blood 49 mg/dL (60-115)
[2023-03-13 08:48] LABS: Vancomycin Trough 20.3 mcg/mL (10.0-20.0)
[2023-03-13] MEDS: Enoxaparin Sodium 60 MG/0.6 ML SYRINGE 50 MG SUBCUT ×2 (08:55→21:40)
[2023-03-13] MEDS: Midodrine HCl 5 MG TABLET PO ×3 (08:55→21:40)
[2023-03-13] MEDS: 0.9 % Sodium Chloride Flush 3 ML SYRINGE IVFLUSH ×3 (08:58→21:41)
--- NOTE | 2023-03-13 09:06 | HE.PHANOTE ---
RE: MONICA On 03/13/23, trough came back as 20.3 with sCr of 1.16 and CrCl of 36.5, continue with dose of 500mg q24h with predicted AUC of 464 and trough of 14.8. Will adjust dose if necessary after random trough comes back on 03/14/23 @0800.
[2023-03-13 09:15] LABS: Glucose, Whole Blood 48 mg/dL (60-115)
[2023-03-13] MEDS: vancomycin HCL 500 MG in 0.9 % Sodium Chloride 100 ML 110 MG IV (09:30)
[2023-03-13] MEDS: Glucose Gel 15 GM GEL..GRAM. PO (09:30)
[2023-03-13 10:37] LABS: Glucose, Whole Blood 76 mg/dL (60-115)
[2023-03-13 11:59] VITALS: BP 80/60; PULSE 105; RESP 20; TEMP 36; O2SAT 96
--- NOTE | 2023-03-13 12:24 | MHC.CLN ---
F/U PT IS MODERATELY MALNOURISHED SEE ALSO FULL CLINICAL NUTRITION ASSESSMENT PO INTAKE 25% X 3 MEALS DIET RX: GRD M/S-APPROPRIATE PT RECEIVING MAGIC CUP TID AND ENSURE CLEAR TID MONITOR PO INTAKE CLOSELY
--- NOTE | 2023-03-13 12:43 | P.CONGS_ITS ---
History of Present Illness Consult details Consult date: 03/13/23 Reason for consult: wound care Narrative: Very complex 72-year-old female with a history of lymphedema presented to the hospital for generalized weakness. She reports that she had been in bed for several days had difficulty taking in p.o. intake. In addition she has developed ulcers of the legs and of the sacrum. She now presents to us for vascular evaluation. Of note she reports that she has been nonambulatory for few years. Review of Systems 2 Review of Systems: Yes all other systems are reviewed and are negative Constitutional: Constitutional: Reports no additional constitutional complaints ENT: Reports Normal hearing present Cardiovascular: Cardiovascular: Denies chest pain, Denies chest pain at rest, Denies chest pain with activity and Denies pedal edema Respiratory: Respiratory: Denies cough Gastrointestinal: Gastrointestinal: Denies abdominal pain Musculoskeletal: Musculoskeletal: Denies abnormal gait, Denies muscle cramps and Denies radiating pain into limb Integumentary/Breasts: Skin/Breast: Denies skin ulcer and Denies wounds Neurologic: Reports Normal hearing present and Denies abnormal gait Psychiatric: Psychiatric: Reports no additional psychiatric complaints PMFSH Past Medical History Medical History Benign essential hypertension Deep vein thrombosis (DVT) of both lower extremities Deep vein thrombosis Hospital discharge follow-up Heel ulcer Decubitus skin ulcer Vitamin D deficiency Allergic rhinitis Lymphedema Family History Family History Father Glaucoma Alzheimers disease Mother Skin cancer Brain cancer Family/Other Heart disease Surgical History Surgical History No pertinent past surgical history Social History Social History Household Members: Children Housing: House Do you presently have visiting nurse or other home services: No Alcohol intake: never Patient Tobacco Use Status: Never used Tobacco e-Cigarette/Vaping Use: Never Used Second Hand Smoke Exposure: Yes Advance Directives Date on File: 03/11/23 service: No Current occupational status: disabled Cognitive needs: Yes (wheelchair) Hearing needs: No Vision needs: Yes Meds Allergies Allergy/AdvReac Type Severity Reaction Status Date / Time amoxicillin [From Augmentin] Allergy Severe Shortness Verified 12/14/22 16:37 of Breath clavulanic acid Allergy Severe Shortness Verified 12/14/22 16:37 [From Augmentin] of Breath Active Medications: Current Medications Acetaminophen (Acetaminophen 325 Mg Tablet) 650 mg PO Q6H PRN PRN Reason: Pain, Mild (Pain Scale 1-3) Last Admin: 03/12/23 11:56 Dose: 650 mg Enoxaparin Sodium (Enoxaparin Sodium 60 Mg/0.6 Ml Syringe) 50 mg 1 mg/kg (50 mg) SUBCUT Q12H [facility] Last Admin: 03/13/23 08:55 Dose: 50 mg Glucose (Glucose Gel 15 Gm Gel..Gram.) 15 gm PO Q15M PRN PRN Reason: per Hypoglycemia Standing Ord. Last Admin: 03/13/23 09:30 Dose: 15 gm Piperacillin Sod/Tazobactam (Sod 4.5 gm/ Sodium Chloride) 100 mls @ 200 mls/hr IV Q8H [facility] Last Admin: 03/13/23 12:05 Dose: 200 mls/hr Vancomycin HCl 500 mg/ Sodium (Chloride) 110 mls @ 110 mls/hr IV Q24H [facility] Last Infusion: 03/13/23 11:12 Dose: Infused Melatonin (Melatonin 3 Mg Tablet) 6 mg PO BEDTIME PRN PRN Reason: Insomnia Midodrine (Midodrine Hcl 5 Mg Tablet) 5 mg PO TID [facility] Last Admin: 03/13/23 08:55 Dose: 5 mg Morphine Sulfate (Morphine Sulfate 2 Mg/Ml Cartridge) 2 mg IVPUSH Q3H PRN; Protocol PRN Reason: Pain, Severe (Pain Scale 7-10) Last Admin: 03/13/23 09:33 Dose: 2 mg Omeprazole (Omeprazole 20 Mg Capsule.Dr) 20 mg PO DAILY@0630 [facility] Last Admin: 03/13/23 05:41 Dose: Not Given Ondansetron HCl (Ondansetron Hcl 4 Mg/2 Ml Vial) 4 mg IVPUSH Q8H PRN PRN Reason: Nausea and Vomiting Last Admin: 03/11/23 22:41 Dose: 4 mg Pharmacy Consult (Consult Rx Vancomycin Dosing) 1 each MISCELLANE DAILY PRN PRN Reason: Consult order Sodium Chloride (0.9 % Sodium Chloride Flush 3 Ml Syringe) 3 ml IVFLUSH QSHIFT [facility] Last Admin: 03/13/23 08:58 Dose: 3 ml Home Medications Medication Instructions Recorded Confirmed Last Taken Type wheelchair ##1 06/10/20 12/14/22 Unknown History bismuth tribrom-petrolatum,wh 5 X #50 ea 06/22/20 12/14/22 Unknown History 9 bandage (Xeroform Petrolatum Dressing) gauze bandage 4 X 4 (Bordered #1,200 ea 06/22/20 12/14/22 Unknown History Gauze) aspirin 325 mg tablet (Nima 325 mg PO DAILY 12/14/20 03/11/23 03/07/23 History Aspirin) Physical Exam 2 Vital Signs: Vital Signs: Last Vital Signs Temp 96.8 F 03/13/23 11:59 Pulse 105 H 03/13/23 11:59 Resp 20 03/13/23 11:59 BP 80/60 L 03/13/23 11:59 Pulse Ox 96 03/13/23 11:59 O2 Del Method Room Air 03/13/23 11:59 O2 Flow Rate 2 03/11/23 01:35 Oxygen Flow Rate 2 03/11/23 01:38 BMI result Body Mass Index 18.2 Const: General: cooperative, healthy appearing and comfortable O rientation/consciousness: oriented to person, oriented to place and oriented to time HEENT: Head: Yes normal to inspection Neck: Neck: Yes normal visual inspection Carotids: no bruits Chest: Chest palpation & inspection: normal inspection of the chest Resp: Effort & Inspection: normal respiratory effort and able to speak in complete sentences Auscultation: clear to auscultation bilaterally, no crackles, no rales, no rhonchi and no wheezes Cardio: Other: Bilateral DP signals Rate: regular rate Rhythm: regular rhythm Heart sounds: S1 normal heart sound present and S2 normal heart sound present Bruits: no carotid bruits Peripheral pulses: Peripheral pulses 2+ throughout GI: Inspection: Yes normal to inspection Skin: Other: Ulcerations of bilateral lower extremities right greater than left. Toe ischemia right-side 3rd 4th 5th toe. Left side 2nd and 3rd Wounds: no wounds Hair: normal Neuro: General: oriented to person, oriented to place and oriented to time Cranial nerves: Yes CN's II-XII intact bilaterally and Yes Normal hearing present Cognition (Neuro): normal cognition Motor exam (neuro): 5/5 motor strength present throughout Extrem: Other: venous exam: No significant superficial varicosities or spider telangiectasias, minimal edema General: No clubbing, No cyanosis and No edema Psych: Appearance: grossly normal Mental Status: mental status grossly normal Speech and movement: Normal speech and movement present Results Labs 03/13/23 06:50 03/13/23 06:50 Labs: Abnormal lab results 03/12/23 03/12/23 03/13/23 Range/Units 15:22 20:30 06:50 WBC 17.3 H (4.8-10.8) X10*3/uL RBC 3.07 L D (4.20-5.50) X10*6/uL Hgb 7.9 L D (12.0-16.0) g/dl Hct 24.3 L D (37.0-47.0) % MCV 79.2 L (80.0-98.0) fL MCH 25.7 L (27.0-33.0) pg RDW 24.8 H (11.0-16.0) % Plt Count 75 L (160-400) X10*3/uL Absolute Nucleated RBC 0.020 H (0.0-0.012) X10*3/uL Potassium 2.7 L D (3.3-5.1) mmol/L Chloride 114 H (96-108) mmol/L Carbon Dioxide 18 L (22-29) mmol/L BUN 54 H (9-16) mg/dL POC Glucose (60-115) mg/dL Fasting Glucose 59 L* (60-99) mg/dL Calcium 7.6 L (8.4-10.2) mg/dL Total Bilirubin 1.1 H (0.0-1.0) mg/dL Direct Bilirubin 0.7 H (0.0-0.5) mg/dL Total Protein 4.8 L (6.5-8.0) g/dL Albumin 2.5 L (3.5-5.0) g/dL Ur Specific [place] >= 1.030 H (1.005-1.025) Urine Protein 100 (2+) H (Neg-Trace) mg/dL Urine Blood Large (3+) H (Negative) Ur Leukocyte Esterase Moderate (2+) H (Negative) Urine RBC 11-20 H (0-2) /HPF U Random Total Protein 199 H (<12) mg/dL Vancomycin Trough 25.1 H* 20.3 H (10.0-20.0) mcg/mL Urine Opiates Screen POSITIVE H (Not Detect) Urine Fentanyl Screen POSITIVE H (Not Detect) 03/13/23 03/13/23 Range/Units 08:43 09:11 WBC (4.8-10.8) X10*3/uL RBC (4.20-5.50) X10*6/uL Hgb (12.0-16.0) g/dl Hct (37.0-47.0) % MCV (80.0-98.0) fL MCH (27.0-33.0) pg RDW (11.0-16.0) % Plt Count (160-400) X10*3/uL Absolute Nucleated RBC (0.0-0.012) X10*3/uL Potassium (3.3-5.1) mmol/L Chloride (96-108) mmol/L Carbon Dioxide (22-29) mmol/L BUN (9-16) mg/dL POC Glucose 49 L* 48 L* (60-115) mg/dL Fasting Glucose (60-99) mg/dL Calcium (8.4-10.2) mg/dL Total Bilirubin (0.0-1.0) mg/dL Direct Bilirubin (0.0-0.5) mg/dL Total Protein (6.5-8.0) g/dL Albumin (3.5-5.0) g/dL Ur Specific [place] (1.005-1.025) Urine Protein (Neg-Trace) mg/dL Urine Blood (Negative) Ur Leukocyte Esterase (Negative) Urine RBC (0-2) /HPF U Random Total Protein (<12) mg/dL Vancomycin Trough (10.0-20.0) mcg/mL Urine Opiates Screen (Not Detect) Urine Fentanyl Screen (Not Detect) Short CBC 03/13/23 Range/Units 06:50 WBC 17.3 H (4.8-10.8) X10*3/uL Hgb 7.9 L D (12.0-16.0) g/dl Hct 24.3 L D (37.0-47.0) % Plt Count 75 L (160-400) X10*3/uL BMP 03/13/23 06:50 Sodium 143 Potassium 2.7 L D Chloride 114 H Carbon Dioxide 18 L BUN 54 H Creatinine 1.16 Calcium 7.6 L Liver Function 03/13/23 Range/Units 06:50 Total Bilirubin 1.1 H (0.0-1.0) mg/dL Direct Bilirubin 0.7 H (0.0-0.5) mg/dL AST 10 (5-31) U/L ALT 7 (0-31) U/L Alkaline Phosphatase 110 (39-117) U/L Albumin 2.5 L (3.5-5.0) g/dL Urine 03/12/23 Range/Units 20:30 Urine Color Dark Yellow Urine Appearance Turbid Urine pH 5.0 (5.0-9.0) Ur Specific [place] >= 1.030 H (1.005-1.025) Urine Protein 100 (2+) H (Neg-Trace) mg/dL Urine Glucose (UA) Negative (Negative) mg/dL All other labs normal. Assessment and Plan (1) PAD (peripheral artery disease): Status: Acute Plan In short patient has bilateral lower extremity ulcers. He has discoloration toes of both lower extremities. Of concern is the fact that she has poor nutrition and hygiene and is nonambulatory. At the current time I would like her overall status to improve. The only thing I think would be helpful for her is should it be required amputations. I do not think she will be ambulatory. We will continue to follow with you. Thank you for allowing us to assist in her care. Procedures Date of Service Date of Service: 03/13/23
--- NOTE | 2023-03-13 12:54 | HO.WOUND ---
Wound Consult: Initial 72yr old female admitted to [facility] on?03/11/23 02:45 - See progress notes and H&P for detailed history. Request by direct care team to assist in wound care dressings and needs assessment of pt's lower legs have areas of denuded tissue. Pt remains resistant to repositioning and care - pt educated on benefits of care and repositioning - it does not appear that the patient fully understanding the information provided to her - she continues to cry out throughout the consultation. Supportive care and listening was provided with little affect. Right posterior Upper Leg and Bilateral Posterior thighs Etiology: Eccyhmosis not consistent with pressure Wound Bed: dark purple nonblanchable tissue with crepitus noted Drainage / Odor: None Edges: ? Irregular Taryn wound: ?dry thick flaking epidermal layers - crepitus noted - provider notified via TT Pain: pt reports pain Goals of Treatment: ?Off Load Pressure moisturize to protect tissue Posterior Legs - Mixed etiology Etiology: Unknown Etiology - likely component of neglect and improper care Wound Bed: thick hyperkeratotic tissue with areas of intact tissue noted underneath thickened layers and various areas of denudment noted today Drainage / Odor: Serosang noted on bed linen Edges: ? Irregular Taryn wound: ? 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 Irregular Taryn wound: ? red pink MASD noted in various areas - areas of purple maroon purpura noted not consistent with DTI at this time dry desquamation No Induration, Central fluctuance area at 6 o'clock Pain: pt reports pain Goals of Treatment: ?Off Load Pressure - Autolytic debridement and Moist wound healing with Dakins and Defer to Surgery for fluid collection assessment Recommendations: 1. Turn and Reposition every 2 hours and as needed for patient comfort consider use of wedges available in the storeroom. 2. Off Load all bony prominences with use of pillows, wedges and heel boots. 3. Monitor for incontinence and moisture control. 4. Provide adequate and supplemental nutrition. 5. Continue low air loss mattress. 6. Maintain blood glucose levels per Providers orders. 7. Spine, Scapula, Shoulders, Hips and elbows - Preventative Foam Dressings - peel back and assess Q shift and change every 3 days and PRN. 8. Sacrum - Off Load Pressure - Obtain wedges from storeroom. Cleanse with Dakins, Apply clear barrier cream to periwound - Lightly pack sacrum with dakins moist gauze to fill space - cover with dry gauze, ABD pads. Change Daily. 9. Right Heel - Off Load Pressure - Obtain off loading boots from storeroom. Cleanse with NS, Pat Dry. Apply moisturizer to legs and dry feet. Apply cut to size Durafiber AG to Right heel cover with dry gauze, ABD pads and gauze wrap. Change Daily. 10. Bilateral Lower Legs - Cleanse with routine bathing - consider Bing spray and moist warm towel soaks to aid in removal of thick callused tissue. Moisturize lower legs twice daily. if pt is not able to tolerate consider cleansing with Bing spray, cover with xeroform layer wrap with dry gauze. change Daily. 11. Bilateral Toes - Defer to Vascular team for assessment. Re-consult wound care Nurse for wound deterioration or wound changes.
--- NOTE | 2023-03-13 13:03 | P.CDIM_ITS ---
PROVIDER RESPONSE TEXT: To clarify, the appropriate diagnosis supported by the clinical indicators: Pressure (decubitus) injury right heel unstageable QUERY TEXT: PHYSICIAN'S DOCUMENTATION REQUEST Date of Query: 03/13/2023 12:01 PM EST Patient Name: Tiffani Trent Admit Date: 03/11/2023 Dear Johny Middleton, A review of the medical record indicates additional documentation may be needed. Please review below and update the documentation accordingly. Clinical Indicators: Wound care notes 03/12 - Pressure injury right heel unstageable Present on arrival Autolytic debridement and moist wound healing with Dakins. Based on the above, could you please provide further information regarding the ulcer/wound/injury: Pressure (decubitus) injury right heel unstageable Other (explain) Clinically unable to determine (explain) Thank you, Merry Carpenter, CCS, CDIS Use of terms such as suspected, likely, concern for, or probable (associated with a specific diagnosi s that is being evaluated, monitored, or treated as if it exists) are acceptable and can be coded in the inpatient se tting, when documented at the time of discharge. Please use your independent medical judgment in providing your response. THIS QUERY IS PART OF THE PERMANENT MEDICAL RECORD
--- NOTE | 2023-03-13 13:03 | P.CDIM_ITS ---
PROVIDER RESPONSE TEXT: To clarify, the appropriate diagnosis supported by the clinical indicators: Pressure (decubitus) injury right posterior leg unstageable QUERY TEXT: PHYSICIAN'S DOCUMENTATION REQUEST Date of Query: 03/13/2023 11:59 AM EST Patient Name: Tiffani Trent Admit Date: 03/11/2023 Dear Johny Middleton, A review of the medical record indicates additional documentation may be needed. Please review below and update the documentation accordingly. Clinical Indicators: Wound care notes 03/12 - Unstageable pressure injury right posterior leg - present on arrival Autolytic debridement and moist wound healing with Dakins Based on the above, could you please provide further information regarding the ulcer/wound/injury: Pressure (decubitus) injury right posterior leg unstageable Other please specify Other (explain) Clinically unable to determine (explain) Thank you, Merry Carpenter, CCS, CDIS Use of terms such as suspected, likely, concern for, or probable (associated with a specific diagnosi s that is being evaluated, monitored, or treated as if it exists) are acceptable and can be coded in the inpatient se tting, when documented at the time of discharge. Please use your independent medical judgment in providing your response. THIS QUERY IS PART OF THE PERMANENT MEDICAL RECORD
--- NOTE | 2023-03-13 14:46 | MHC.SL.SWA ---
Speech Pathologist Impression: Oral phase dysphagia, Risk of aspiration Risk of Aspiration Due to: Poor PO Intake Weak Cough Weak Voice Dysphasia Diet Status: DOWNGRADE Liquid Consistency and Strategies for Safe Swallow: Liquid Intake Recommendation: Reeves Thick Liquid Intake Strategies: No Straws (unable to suck from straw) Solid Food Consistency: Dietary Recommendations: Pureed (NDD1) Oral Medication Intake: Crushed with Puree Please contact the pharmacy regarding appropriate crushable or liquid drug formulations that are available whenever modified delivery is recommended. Compensatory Strategies and Precautions to be Taken for Safe Swallow: Sitting Upright (90 deg) Liquids from Cup Liquids from Spoon Supervision While Eating and Drinking for Safe Swallow: Total Assistance (1:1) Recommendation for Speech: Inpatient Speech Therapy Comment: Recommend DOWNGRADE to puree solids (NDD1) and nectar thick liquids (tsp or cup) d/t consistent clinical s/s aspiration w/ thin liquids and difficulty managing bolus w/in oral cavity. Recommend pills crushed in puree. Patient requires 1-1 assist. Pt risk of dehydration heightened w/ thickened liquid recommendation. Pt at risk of aspiration with weak voice/cough. Pt may benefit from MBSS to visualize structures and swallow to rule in/out aspiration. MD, RN, and RD notified via [place]. Recommendations updated on patient's board. MEDIA CONSULTANT OUTSIDE SALES to continue to follow. Hyster Machine Operator Clinican/Clinical Fellow: No Supervisory Statement: I have reviewed and agree with the student/clinical fellow's documentation: N/A Speech Language Pathologist: Krystal Hyman M.A., [facility]-MEDIA CONSULTANT OUTSIDE SALES
--- NOTE | 2023-03-13 14:57 | MHC.CM.PN ---
HCP completed and added to paper and electronic chart. [facility] assessment completed with pt and her dtr, the patient said that she did not have any problems, but then the dtr asked for information on community services, it was provided. Dtr is working with financial counselors here on [employer] application. Goal is for pt to go home with home care services. CM to follow and assist with DC plan.
--- NOTE | 2023-03-13 15:27 | MHC.CM.PN ---
LAURIE called [facility] protective services worker: Maryellen Pena [phone]. She said that there have been previous protective cases opened on this pt. and she has a history of refusing care. LAURIE will follow and contact Maryellen as needed for DC planning.
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
[2023-03-13 15:53] VITALS: BP 100/50; PULSE 107; RESP 16; TEMP 36.2; O2SAT 97
[2023-03-13 19:58] VITALS: BP 81/51; PULSE 96; RESP 18; TEMP 36.1; O2SAT 98
[2023-03-13] MEDS: Melatonin 3 MG TABLET 6 MG PO (21:40)
[2023-03-13 22:07] LABS: Glucose, Whole Blood 79 mg/dL (60-115)
[2023-03-14] VITALS (33 sets, daily range): BP systolic 69–166; BP diastolic 27–100; PULSE 80–132; RESP 13–24; TEMP 34.2–37.1; O2SAT 92–100; BMI 18.2
[2023-03-14] MEDS: Albumin Human 25 % 100 ML IV ×5 (03:05→16:07)
[2023-03-14] MEDS: Piperacillin Sodium/Tazobactam 4.5 GM in 0.9 % Sodium Chloride 100 ML IV ×3 (03:08→20:33)
[2023-03-14] MEDS: Morphine Sulfate 2 MG/ML CARTRIDGE IVPUSH (05:30)
[2023-03-14 08:02] LABS: Glucose, Whole Blood 52 mg/dL (60-115)
[2023-03-14 08:04] LABS: Mean Corpuscular HGB Conc 31.6 g/dl (31.0-35.0); Mean Corpuscular Hemoglobin 25.3 pg (27.0-33.0); Mean Platelet Volume 10.4 fL (9.4-12.3); Red Blood Count 2.45 X10*6/uL (4.20-5.50); Red Cell Distribution Width 24.7 % (11.0-16.0); White Blood Count 15.5 X10*3/uL (4.8-10.8)
[2023-03-14 08:27] LABS: Vancomycin Random 21.9 mcg/mL (15-20)
[2023-03-14 08:38] LABS: Hematocrit 19.6 % (37.0-47.0); Hemoglobin 6.2 g/dl (12.0-16.0); Platelet Count 64 X10*3/uL (160-400)
[2023-03-14 08:39] LABS: Alanine Aminotransferase 10 U/L (0-31); Albumin Level 3.1 g/dL (3.5-5.0); Alkaline Phosphatase 92 U/L (39-117); Aspartate Amino Transferase 12 U/L (5-31); Bilirubin Direct 0.8 mg/dL (0.0-0.5); Bilirubin Total 1.3 mg/dL (0.0-1.0); Blood Urea Nitrogen 47 mg/dL (9-16); Calcium 7.6 mg/dL (8.4-10.2); Creatinine Clr Calc Pharmacy 39.9; Estimated Glomerular Filt Rate 51; Glucose Random 63 mg/dL (60-115); Total Protein 4.8 g/dL (6.5-8.0)
[2023-03-14] MEDS: Dextrose 50 % 25 GM/50 ML SYRINGE IVPUSH (08:44)
--- NOTE | 2023-03-14 08:44 | HE.PHANOTE ---
RE: vanco Trough on 03/14 came back at 21.9; getting another level at 2100. Dose of 500mg Q24H yields predicted AUC of 492 mg/L, trough of 15.9. Renal function is slightly improving, will continue to monitor and adjust as necessary
[2023-03-14] MEDS: Dextrose 5 % and Lactated Ring 1,000 ML 80 ML IVCONT (08:47)
[2023-03-14] MEDS: 0.9 % Sodium Chloride Flush 3 ML SYRINGE IVFLUSH ×2 (08:51→16:54)
[2023-03-14] MEDS: Acetaminophen 325 MG TABLET 650 MG PO (08:55)
[2023-03-14] MEDS: Midodrine HCl 5 MG TABLET PO ×2 (08:55→14:50)
[2023-03-14 08:56] LABS: Anion Gap 14 (12-20); Carbon Dioxide 18 mmol/L (22-29); Chloride 113 mmol/L (96-108); Sodium 143 mmol/L (135-145)
[2023-03-14 09:24] LABS: Glucose, Whole Blood 59 mg/dL (60-115)
[2023-03-14 09:28] LABS: Glucose, Whole Blood 190 mg/dL (60-115)
[2023-03-14 10:08] LABS: INTERNATIONAL NORM RATIO 1.5 (0.9-1.1); Prothrombin Time 18.1 SEC (11.1-13.3)
--- NOTE | 2023-03-14 10:15 | PC.NURSE ---
Patient down for midline placement at this time via patient transport officer.
--- NOTE | 2023-03-14 12:11 | MHC.CLN ---
RE: CONSULT PPN TO START PER MD; REVIEWED LABS DISCUSSED WITH PHARMACY RECOMMEND PPN AT 35ML/HR TO PROVIDE 367KCALS, 72G DEXTROSE, 31G PROTEIN REPLETE LYTES NEEDED SEE ALSO FULL CLINICAL NUTRITION ASSESSMENT DATED 03/14/23
[2023-03-14 13:09] LABS: Potassium 2.3 mmol/L (3.3-5.1)
--- NOTE | 2023-03-14 13:12 | HO.MIDLINE_ITS ---
Midline Insertion MIDLINE INSERTION Diagnosis: Failure to thrive Indication: PPN Pertinent Labs: reviewed Technique: Using sterile technique including cap and mask, glove and drape, the left arm arm was prepped and draped in the usual sterile fashion of full barrier technique with G. Using ultrasound guidance, left basilic vein access was obtained . 20g x 8cm powerglide ST midline was positioned. The procedure was performed in [facility]. Ultrasound was used to document vein patency and for needle entry. A formal ultrasound picture was recorded. [facility] [employer] has released the line for use and it is currently dressed with a StatLock, Tegaderm, and CHG disc. Verification has been performed for blood return and line patency. Arm Circumference: 23 Equipment: BARD PowerGlide ST midline catheter Catheter Type: 20G x 8cm catheter Lot #: [id number]
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
--- NOTE | 2023-03-14 13:20 | PC.NURSE ---
Patient back from IR at this time.
[2023-03-14] MEDS: Potassium Chloride/H20 10 MEQ/100 ML PIGGYBACK 100 MEQ IV ×2 (13:34→14:39)
--- NOTE | 2023-03-14 13:37 | P.CDIM_ITS ---
PROVIDER RESPONSE TEXT: To clarify, the appropriate diagnosis supported by the clinical indicators: Acute osteomyelitis: Sacral QUERY TEXT: PHYSICIAN'S DOCUMENTATION REQUEST Date of Query: 03/14/2023 08:23 AM EST Patient Name: Tiffani Trent Admit Date: 03/11/2023 Dear Johny Middleton, A review of the medical record indicates additional documentation may be needed. Please review below and update the documentation accordingly. Clinical Indicators: PN - Sepsis due to pna and stage IV sacral ulcer with possible osteomyelitis. Continue vanc and zosyn ID following 03/11 -patient saw surgery and found probe to bone. Patient is refusing evaluation of her wounds by general surgery. Ed note - down to subq fat and ? patchy necrosis of the decubitus ulcer. Based on the above, please clarify in the Progress Notes further specificity regarding the type of Os teomyelitis. Acute osteomyelitis Please include specific site with laterality and known or suspected infectious agent Acute hematogenous osteomyelitis Please include specific site with laterality and known or suspected infectious agent Subacute osteomyelitis Please include specific site with laterality and known or suspected infectious agent Chronic osteomyelitis Please include specific site with laterality and known or suspected infectious agent Chronic multifocal osteomyelitis Please include specific site with laterality and known or suspected infectious agent Osteomyelitis Please include specific site with laterality and known or suspected infectious agent Other (explain) Clinically unable to determine (explain) Thank you, Merry Carpenter, CCS, CDIS Use of terms such as suspected, likely, concern for, or probable (associated with a specific diagnosi s that is being evaluated, monitored, or treated as if it exists) are acceptable and can be coded in the inpatient se tting, when documented at the time of discharge. Please use your independent medical judgment in providing your response. THIS QUERY IS PART OF THE PERMANENT MEDICAL RECORD
--- NOTE | 2023-03-14 13:40 | P.CDIM_ITS ---
PROVIDER RESPONSE TEXT: To clarify, the appropriate diagnosis supported by the clinical indicators: Acute QUERY TEXT: PHYSICIAN'S DOCUMENTATION REQUEST Date of Query: 03/14/2023 08:30 AM EST Patient Name: Tiffani Trent Admit Date: 03/11/2023 Dear Johny Middleton, A review of the medical record indicates additional documentation may be needed. Please review below and update the documentation accordingly. Clinical Indicators: PN: 03/13 - metabolic acidosis - check urine studies Clarify which of the following accurately represents the acuity of the metabolic acidosis: Possible options might include: Acute Acute on chronic Other (explain) Clinically unable to determine (explain) Thank you, Merry Carpenter, CCS, CDIS Use of terms such as suspected, likely, concern for, or probable (associated with a specific diagnosi s that is being evaluated, monitored, or treated as if it exists) are acceptable and can be coded in the inpatient se tting, when documented at the time of discharge. Please use your independent medical judgment in providing your response. THIS QUERY IS PART OF THE PERMANENT MEDICAL RECORD
--- NOTE | 2023-03-14 13:40 | P.CDIM_ITS ---
PROVIDER RESPONSE TEXT: To clarify, the appropriate diagnosis supported by the clinical indicators: Hypoglycemia QUERY TEXT: PHYSICIAN'S DOCUMENTATION REQUEST Date of Query: 03/14/2023 08:50 AM EST Patient Name: Tiffani Trent Admit Date: 03/11/2023 Dear Johny Middleton, A review of the medical record indicates additional documentation may be needed. Please review below and update the documentation accordingly. Clinical Indicators: LAB FINDINGS: POC glucose 49 L Glucose 15gm po Based on the above, is there a diagnosis that correlates with these lab findings: Hypoglycemia Other Other (explain) Clinically unable to determine (explain) Thank you, Merry Carpenter, CCS, CDIS Use of terms such as suspected, likely, concern for, or probable (associated with a specific diagnosi s that is being evaluated, monitored, or treated as if it exists) are acceptable and can be coded in the inpatient se tting, when documented at the time of discharge. Please use your independent medical judgment in providing your response. THIS QUERY IS PART OF THE PERMANENT MEDICAL RECORD
--- NOTE | 2023-03-14 13:54 | PC.NURSE ---
Patient hypothermic- bear jianer applied- repeat temp 98.0 at 1400.
[2023-03-14 14:16] LABS: Mean Corpuscular HGB Conc 32.9 g/dl (31.0-35.0); Mean Corpuscular Hemoglobin 26.2 pg (27.0-33.0); Mean Corpuscular Volume 79.7 fL (80.0-98.0); NRBC Pct Auto 0.1 /100WBC (0.0-0.2); Red Blood Count 1.87 X10*6/uL (4.20-5.50); Red Cell Distribution Width 24.8 % (11.0-16.0); White Blood Count 14.7 X10*3/uL (4.8-10.8)
--- NOTE | 2023-03-14 14:33 | P.PNVS_ITS ---
Subjective Subjective Date of Service: 03/14/23 Patient reports: no new complaints Interval history: Complex 72-year-old female with severe protein calorie malnutrition presents for follow-up regarding nonhealing lower extremity ulcers and discoloration of bilateral toes. She has had no significant interval changes. She is in the process of obtaining a catheter for nutritional support. Now presents for follow-up. Physical Exam Vital Signs: Vital Signs: Last Vital Signs Temp 96.6 F L 03/14/23 13:54 Pulse 80 03/14/23 13:54 Resp 18 03/14/23 13:54 BP 90/50 L 03/14/23 13:54 Pulse Ox 100 03/14/23 07:38 O2 Del Method Room Air 03/14/23 07:38 O2 Flow Rate 2 03/11/23 01:35 Oxygen Flow Rate 2 03/11/23 01:38 BMI result Body Mass Index 18.2 Const: General: cooperative, healthy appearing and comfortable Orientation/consciousness: oriented to person, oriented to place and oriented to time HEENT: Head: Yes normal to inspection Neck: Neck: Yes normal visual inspection Carotids: no bruits Chest: Chest palpation & inspection: normal inspection of the chest Resp: Effort & Inspection: normal respiratory effort and able to speak in complete sentences Auscultation: clear to auscultation bilaterally, no crackles, no rales, no rhonchi and no wheezes Cardio: Other: DP signal Rate: regular rate Rhythm: regular rhythm Heart sounds: S1 normal heart sound present and S2 normal heart sound present Bruits: no carotid bruits Peripheral pulses: Peripheral pulses 2+ throughout GI: Inspection: Yes normal to inspection Skin: Other: Discolored toes Wounds: no wounds Hair: normal Neuro: General: oriented to person, oriented to place and oriented to time Cranial nerves: Yes CN's II-XII intact bilaterally and Yes Normal hearing present Cognition (Neuro): normal cognition Motor exam (neuro): 5/5 motor strength present throughout Extrem: Other: venous exam: No significant superficial varicosities or spider telan giectasias, minimal edema General: No clubbing, No cyanosis and No edema Psych: Appearance: grossly normal Mental Status: mental status grossly normal Speech and movement: Normal speech and movement present Progress Note: A&P Assessment and plan (1) PAD (peripheral artery disease): Status: Acute Assessment and Plan: In short patient has nonhealing lower extremity ulcers. The concern here is her overall status. She has been nonambulatory according to the patient for 2-3 years. In addition she has severe protein calorie malnutrition. There is an element of lymphedema as well. Those discoloration of the toes may be microvascular reversed thrombotic event there. As her other medical issues 10 to resolve we can continue to further reassess. The only thing I would offer her at the current time is amputation. We will see how she progresses and we will continue follow with you. Thank you for allowing us to assist in her care. If there are any questions or concerns please do not hesitate to contact us. Time Spent With Patient Time: Total time managing care of this patient today ____ minutes. Procedures Date of Service Date of Service: 03/14/23 Quality Stroke Does the patient have a stroke diagnosis?: No VTE Prior VTE?: No VTE Risk Level:: Medical - moderate - high VTE Device Contraindication: N/A - Device Ordered VTE Drug Contraindication: Treatment Not Indicated
[2023-03-14 14:37] LABS: Hemoglobin 4.9 g/dl (12.0-16.0)
[2023-03-14 14:38] LABS: Hematocrit 14.9 % (37.0-47.0); Magnesium 1.4 mg/dL (1.6-2.6); Phosphorus 1.8 mg/dL (2.7-4.5); Platelet Count 52 X10*3/uL (160-400)
[2023-03-14 14:39] LABS: Anion Gap 15 (12-20); Blood Urea Nitrogen 47 mg/dL (9-16); Calcium 7.8 mg/dL (8.4-10.2); Carbon Dioxide 16 mmol/L (22-29); Chloride 115 mmol/L (96-108); Creatinine Clr Calc Pharmacy 38.8; Estimated Glomerular Filt Rate 50; Glucose Random 121 mg/dL (60-115); Potassium 2.4 mmol/L (3.3-5.1); Sodium 144 mmol/L (135-145)
--- NOTE | 2023-03-14 15:06 | PC.NURSE ---
Patient transferred to ICU at this time.
[2023-03-14 15:21] LABS: Erythrocyte Sedimentation Rate 2 MM/HR (0-20)
[2023-03-14] MEDS: Norepinephrine Bitartrate/D5W 8 MG/250 ML PLAST..BAG 4.8 MG IV (15:35)
[2023-03-14] MEDS: Potassium Phosphate/NS 15 MMOL/250 ML PLAST..BAG 62.5 MMOL IV ×2 (16:07→20:27)
[2023-03-14] MEDS: Magnesium Sulfate/H2O 2 GM/50 ML PIGGYBACK IV (16:07)
[2023-03-14] MEDS: Protamine Sulfate 50 MG/5 ML VIAL IV (16:07)
[2023-03-14] MEDS: Potassium Chloride/H20 40 MEQ/100 ML PIGGYBACK 100 MEQ IV ×2 (16:07→17:12)
--- NOTE | 2023-03-14 16:14 | P.PNCC_ITS ---
Subjective Subjective Date of Service: 03/14/23 Interval History: 72-year-old lady with underlying history of failure to thrive, lymphedema, peripheral artery disease admitted on 03/11/2023 for generalized weakness, failure to thrive, and sepsis with likely skin and pulmonary source. patient with broad-spectrum antibiotics. Blood cultures are growing Proteus. patient has been evaluated by General surgery, however she refused to have her sacral wound examined. Patient also was evaluated by vascular surgery for concern for chronic bilateral lower extremity ischemia. During vasculr workup deep venous thrombosis of lower extremity was noted and patient was started on therapeutic dose Lovenox. However, patient developed acute blood loss anemia with hemorrhagic shock on 03/14/2023 requiring transfer to intensive care unit. Critical Care Time (minutes): 90 Physical Exam 2 Vital Signs: Vital Signs: Last Vital Signs Temp 97.2 F 03/14/23 16:03 Pulse 106 H 03/14/23 16:03 Resp 20 03/14/23 16:03 BP 81/53 L 03/14/23 16:03 Pulse Ox 100 03/14/23 07:38 O2 Del Method Room Air 03/14/23 07:38 O2 Flow Rate 2 03/11/23 01:35 Oxygen Flow Rate 2 03/11/23 01:38 BMI result Body Mass Index 18.2 Const: General: alert, awake, ill appearing, poor hygiene and other N utritional Appearance: malnourished Eyes: Sclerae: sclerae normal EOM: EOMs intact bilaterally Neck: Neck: Yes no lymphadenopathy, Yes trachea midline and Yes supple Resp: Effort & Inspection: normal respiratory effort and no respiratory distress Auscultation: clear to auscultation bilaterally Cardio: Rate: regular rate Rhythm: regular rhythm Heart sounds: no gallops, no murmurs and no rubs GI: Palpation (GI): Soft to palpation and Other GI palpation findings present ( Nontender) Auscultation: normal bowel sounds Extrem: General: Yes no pedal edema, No clubbing, No cyanosis and Yes other ( posterior right lower thigh hematoma, sacral pressure ulcer) Objective Data Labs 03/14/23 13:55 03/14/23 13:55 Labs: Laboratory Results - last 24 hr 03/13/23 03/14/23 03/14/23 22:03 07:39 07:58 WBC 15.5 H RBC 2.45 L D Hgb 6.2 L* D Hct 19.6 L* MCV 80.0 MCH 25.3 L MCHC 31.6 RDW 24.7 H Plt Count 64 L MPV 10.4 Absolute Nucleated RBC 0.000 Nucleated RBC % (auto) 0.0 ESR PT INR Sodium 143 Potassium 2.3 L* Chloride 113 H Carbon Dioxide 18 L Anion Gap 14 BUN 47 H Creatinine 1.06 Estim Creat Clear Calc 39.9 Estimated GFR 51 POC Glucose 79 52 L* Random Glucose 63 Calcium 7.6 L Phosphorus Magnesium Total Bilirubin 1.3 H Direct Bilirubin 0.8 H AST 12 ALT 10 Alkaline Phosphatase 92 Total Protein 4.8 L Albumin 3.1 L Hold Yellow Top Random Vancomycin 21.9 H Blood Type Antibody Screen Crossmatch 03/14/23 03/14/23 03/14/23 08:21 09:24 09:44 WBC RBC Hgb Hct MCV MCH MCHC RDW Plt Count MPV Absolute Nucleated RBC Nucleated RBC % (auto) ESR PT 18.1 H INR 1.5 H Sodium Potassium Chloride Carbon Dioxide Anion Gap BUN Creatinine Estim Creat Clear Calc Estimated GFR POC Glucose 59 L* 190 H Random Glucose Calcium Phosphorus Magnesium Total Bilirubin Direct Bilirubin AST ALT Alkaline Phosphatase Total Protein Albumin Hold Yellow Top Random Vancomycin Blood Type B Positive Antibody Screen NEGATIVE Crossmatch See Detail 03/14/23 03/14/23 09:48 13:55 WBC 14.7 H RBC 1.87 L D Hgb 4.9 L* D Hct 14.9 L* D MCV 79.7 L MCH 26.2 L MCHC 32.9 RDW 24.8 H Plt Count 52 L MPV Not Reportable Absolute Nucleated RBC 0.020 H Nucleated RBC % (auto) 0.1 ESR 2 PT INR Sodium 144 Potassium 2.4 L* Chloride 115 H Carbon Dioxide 16 L Anion Gap 15 BUN 47 H Creatinine 1.09 Estim Creat Clear Calc 38.8 Estimated GFR 50 POC Glucose Random Glucose 121 H Calcium 7.8 L Phosphorus 1.8 L Magnesium 1.4 L* Total Bilirubin Direct Bilirubin AST ALT Alkaline Phosphatase Total Protein Albumin Hold Yellow Top See Note Random Vancomycin Blood Type Antibody Screen Crossmatch Microbiology Microbiology Results: Microbiology 03/10/23 18:34 Blood - Venous Blood Culture - Final Proteus mirabilis 03/13/23 Unknown Urine clean catch - Urine carias top Urine Culture - Final 03/10/23 18:16 Decubitus Ulcer Gram Stain - Final 03/10/23 18:16 Decubitus Ulcer Routine Culture - Final Proteus mirabilis 03/10/23 18:34 Blood - Venous Blood Culture - Preliminary No growth after 48 hours. Progress Note: A&P Assessment and plan (1) Hemorrhagic shock: Status: Acute (2) Acute blood loss anemia: Status: Acute (3) Failure to thrive in adult: Status: Acute (4) Protein-calorie malnutrition, severe: Status: Acute (5) Bacteremia due to Proteus species: Status: Acute (6) DVT (deep venous thrombosis): Status: Acute (7) Sacral decubitus ulcer: Status: Acute (8) PAD (peripheral artery disease): Status: Acute (9) Hematoma of right thigh: Status: Acute Plan Assessment: 72-year-old lady admitted with failure to thrive with hospital course complicated by Proteus bacteremia with skin or pulmonary source, deep venous thrombosis of lower extremity, hemorrhagic shock Plan: Neuro: No acute issues. Cardiac: hemorrhagic shock, improving with transfusion of blood products, though ontinues to require pressor support, continue to titrate off as tolerated. Lower extremity preferred disease, evaluated by vascular surgery, may require amputation. Pulmonary: Likely underlying aspiration and/or community-acquired pneumonia. Renal: Acute renal failure and metabolic acidosis likely secondary to shock. Non oliguric. Continue to monitor renal indices and urine output. Endo: No acute issues. GI: unclear a even occult GI bleed is contributing to anemia. Gastroenterology service care appreciated. ID: Proteus bacteremia , likely skin//pulmonary source. Continues on broad- spectrum antibiotics. Heme/Onc: Lower extremity DVT, initially started on therapeutic dose Lovenox now with development of hemorrhagic shock with acute blood loss anemia. Lovenox stopped. Protamine given. Now status post 4 units of packed red blood cells and 1 unit of FFP. Continue to monitor hemoglobin. Right lower extremity imaging is pending. Psych: No acute issues. Miscellaneous: No acute issues. Prophylaxis: Ppi. No pharmacologic DVT prophylaxis secondary to hemorrhagic shock, no compression devices secondary to lower extremity DVT. Diet: Pending speech therapy recommendations, PPN Critical care time spent: 90 minutes Quality Stroke Does the patient have a stroke diagnosis?: No VTE Prior VTE?: No VTE Risk Level:: Medical - moderate - high VTE Device Contraindication: N/A - Device Ordered VTE Drug Contraindication: Treatment Not Indicated
[2023-03-14 18:23] LABS: Glucose, Whole Blood 158 mg/dL (60-115); VBG HCO3 12 mmol/L (22-26); VBG pCO2 23 mmHg; VBG pH 7.34 (7.32-7.43); VBG pO2 37 mmHg
[2023-03-14 18:46] LABS: Eosinophils Absolute Auto 0.2 X10*3/uL (0.0-0.4); Eosinophils Percent Auto 0.6 % (0-4); Mean Corpuscular HGB Conc 34.1 g/dl (31.0-35.0); NRBC Pct Auto 0.2 /100WBC (0.0-0.2); SCAN SMEAR FLAG 1
[2023-03-14 18:48] LABS: Basophils Absolute Auto 0.1 X10*3/uL (0.0-0.2); Basophils Percent Auto 0.2 % (0-2); Hematocrit 34.9 % (37.0-47.0); Hemoglobin 11.9 g/dl (12.0-16.0); Imm Gran Abs Auto 0.38 X10*3/uL (0.00-0.03); Imm Gran Pct Auto 1.4 % (0.0-0.4); Lymphocytes Absolute Auto 2.1 X10*3/uL (1.2-4.9); Lymphocytes Percent Auto 7.5 % (20-40); MANUAL DIFF FLAG SCAN; Mean Corpuscular Hemoglobin 28.5 pg (27.0-33.0); Mean Corpuscular Volume 83.7 fL (80.0-98.0); Mean Platelet Volume 9.5 fL (9.4-12.3); Monocytes Absolute Auto 0.6 X10*3/uL (0.1-1.2); Neutrophils Absolute Auto 24.8 x10*3/uL (2.0-8.3); Neutrophils Percent Auto 88.3 % (45-73); Red Blood Count 4.17 X10*6/uL (4.20-5.50); Red Cell Distribution Width 17.5 % (11.0-16.0); White Blood Count 28.1 X10*3/uL (4.8-10.8)
[2023-03-14 18:49] LABS: PLT ABN DIST 1; Platelet Count 57 X10*3/uL (160-400)
[2023-03-14 18:50] LABS: Vancomycin Trough 19.3 mcg/mL (10.0-20.0)
--- NOTE | 2023-03-14 19:02 | HE.PHANOTE ---
re vanco trough was 19.3, will hold dose until AM. Next level due 0700 on 03/15 ning
[2023-03-14 19:12] LABS: SLIDE REVIEW VERIFIED
[2023-03-14 19:16] LABS: Alanine Aminotransferase 7 U/L (0-31); Albumin Level 3.9 g/dL (3.5-5.0); Alkaline Phosphatase 77 U/L (39-117); Anion Gap 18 (12-20); Aspartate Amino Transferase 12 U/L (5-31); Bilirubin Total 2.6 mg/dL (0.0-1.0); Blood Urea Nitrogen 43 mg/dL (9-16); Calcium 7.7 mg/dL (8.4-10.2); Carbon Dioxide 15 mmol/L (22-29); Chloride 115 mmol/L (96-108); Creatinine Clr Calc Pharmacy 40.3; Estimated Glomerular Filt Rate 52; Glucose Random 167 mg/dL (60-115); Potassium 5.4 mmol/L (3.3-5.1); Sodium 143 mmol/L (135-145); Total Protein 5.3 g/dL (6.5-8.0)
[2023-03-14] MEDS: Midazolam HCl/PF 2 MG/2 ML VIAL 1 MG IVPUSH (19:40)
[2023-03-14 19:50] LABS: Magnesium 2.1 mg/dL (1.6-2.6); Phosphorus 4.7 mg/dL (2.7-4.5)
[2023-03-14] MEDS: iohexoL 350 MG/ML 100 ML INFUS..BTL 80 ML IV (20:25)
[2023-03-14] MEDS: Calcium Gluconate/NaCl,Iso-Osm 2 GM/100 ML PLAST..BAG IV (20:39)
[2023-03-14] MEDS: Parenteral Nutrition 840 ML 35 ML IV (20:47)
[2023-03-14 21:03] LABS: Gliadin Deamidated IgA Ab 1.6 U/mL; Gliadin Deamidated IgG Ab <1.0 U/mL
[2023-03-14 22:23] LABS: Venous Blood Gas Refer to POC result
[2023-03-15] VITALS (50 sets, daily range): BP systolic 73–146; BP diastolic 30–98; PULSE 88–136; RESP 14–38; TEMP 36.2–37.6; O2SAT 92–100
[2023-03-15] MEDS: 0.9 % Sodium Chloride Flush 3 ML SYRINGE IVFLUSH ×4 (00:18→23:30)
[2023-03-15 00:35] LABS: Glucose, Whole Blood 153 mg/dL (60-115)
[2023-03-15] MEDS: Piperacillin Sodium/Tazobactam 4.5 GM in 0.9 % Sodium Chloride 100 ML IV ×3 (02:08→18:05)
[2023-03-15] MEDS: fentaNYL citrate/PF 100 MCG/2 ML VIAL 50 MCG IVPUSH ×4 (04:05→23:26)
--- NOTE | 2023-03-15 04:37 | PC.NURSE ---
CARE ASSUMED 7PM..AWAKE..WHISPERS SOFTLY...DISORIENTED TO PLACE/TIME/RECENT EVENTS...GENERALIZED EDEMA.....BACK/THIGHS/PERINEUM MACERATED AND EXCORIATED...LARGE DRESSING TO SACRUM/LOWER BACK WITH SEROSANGUINOUS DRAINAGE...2 FOAM DRESSINGS TO UPPER MID-BACK...DRESSINGS/WRAPS TO BOTH LOWER LEGS...BOTH FEET WITH BLACKENED TOES...RIGHT INNER THIGH TO CALF SWOLLEN WITH ECHHYMOSIS...?HEMATOMA....LEVOPHED DRIP PER JUN...D5LR 80 CC/HR D/C'D AND STARTED TPN 35 CC/HR...2ND BAG OF KPO4 HELD BY ICU MACHINE TURNER AFTER 6PM LAB RESULTS OBTAINED...BACA 15-20 CC/.HR OF SEDIMENTED URINE....DAUGHTER AT BEDSIDE AT SHIFT CHANGE...PATIENT RESISTANT TO CARE PER SHIFT REPORT....VERSED 1MG IV PRIOR TO TRANSPORT TO CT DEPT..TOLERATED CT W/O INCIDENT.....SACRAL/LOW BACK DRESSING CHANGED THIS AM FOR SEROSANGUINOUS DRAINAGE....FENTANYL 50MCG IV GIVEN PRIOR TO DRESSING CHANGE...RESTFUL AFTERWARDS..SINUS TACH 100'S...AFEBRILE
[2023-03-15 05:22] LABS: VBG HCO3 15 mmol/L (22-26); VBG pCO2 26 mmHg; VBG pH 7.37 (7.32-7.43); VBG pO2 38 mmHg
[2023-03-15 05:24] LABS: Venous Blood Gas Refer to POC result
[2023-03-15 05:41] LABS: Basophils Percent Auto 0.2 % (0-2); Eosinophils Absolute Auto 0.1 X10*3/uL (0.0-0.4); Eosinophils Percent Auto 0.3 % (0-4); Hemoglobin 9.7 g/dl (12.0-16.0); Lymphocytes Absolute Auto 1.8 X10*3/uL (1.2-4.9); Mean Corpuscular HGB Conc 34.6 g/dl (31.0-35.0); NRBC Pct Auto 0.2 /100WBC (0.0-0.2); PLT ABN DIST 1; SCAN SMEAR FLAG 1
[2023-03-15 05:42] LABS: Basophils Absolute Auto 0.1 X10*3/uL (0.0-0.2); Imm Gran Abs Auto 0.29 X10*3/uL (0.00-0.03); Lymphocytes Percent Auto 6.4 % (20-40); MANUAL DIFF FLAG SCAN; Mean Corpuscular Hemoglobin 29.3 pg (27.0-33.0); Mean Corpuscular Volume 84.6 fL (80.0-98.0); Monocytes Absolute Auto 0.6 X10*3/uL (0.1-1.2); Monocytes Percent Auto 1.9 % (2-11); Neutrophils Percent Auto 90.2 % (45-73); Red Blood Count 3.31 X10*6/uL (4.20-5.50); Red Cell Distribution Width 17.6 % (11.0-16.0); White Blood Count 28.9 X10*3/uL (4.8-10.8)
[2023-03-15 05:44] LABS: Platelet Count 57 X10*3/uL (160-400)
[2023-03-15 05:57] LABS: Alanine Aminotransferase 8 U/L (0-31); Albumin Level 3.1 g/dL (3.5-5.0); Alkaline Phosphatase 78 U/L (39-117); Anion Gap 16 (12-20); Aspartate Amino Transferase 14 U/L (5-31); Bilirubin Total 2.2 mg/dL (0.0-1.0); Blood Urea Nitrogen 45 mg/dL (9-16); Calcium 8.1 mg/dL (8.4-10.2); Carbon Dioxide 17 mmol/L (22-29); Chloride 116 mmol/L (96-108); Creatinine Clr Calc Pharmacy 39.9; Estimated Glomerular Filt Rate 51; Glucose Random 184 mg/dL (60-115); Magnesium 1.9 mg/dL (1.6-2.6); Phosphorus 3.6 mg/dL (2.7-4.5); Potassium 3.8 mmol/L (3.3-5.1); Sodium 145 mmol/L (135-145); Total Protein 4.5 g/dL (6.5-8.0)
[2023-03-15 06:03] LABS: SLIDE REVIEW VERIFIED
--- NOTE | 2023-03-15 07:24 | PC.NURSE ---
Late entry from 03/14/2023 1900 Assumed care at approx 1515 03/14, patient transported to ICU accompanied by bankman, and station manager. Upon arrival, 2 units RBCs and 1 Unit of platelets actively transfusing. One of two units of RBCs was unscanned in TAR from floor RN- resolved by community health promoter Daniel FABIAN. Current blood products transfused, 1 additional unit RBCs transfused per TAR. Electrolytes replaced per EMAR. CBC, CMP, VBG collected at 1800- see results. Patient HR sustaining 90s-100s, no ectopy. SBPs sustaining 70s-90s, MAPs 50-65. Levophed gtt started per MD order, titrated per EMAR to sustain MAPs >65. Patient AO to self and time, disoriented to place and situation. Patient resistive to care, requiring constant explaining of necessity of nursing interventions. Rubalcava catheter inserted per MD order, approx 200 cc cloudy dark yellow urine immediately after insertion- MD made aware, UC collected and sent to lab. Multiple skin integrity concerns- large dsg covering sacral pressure injury CDI. Severe diffuse bruising and scattered skin tears over entire body, petechial rash present on lower torspo/ BLE. generalized edema, weeping from BLE. BLEs bandaged with xeroform and curlex. Bilateral toes purple, pedal pulses present bilaterally. Large hematoma covering right dorsal upper extremity- MD made aware and at bedside to examine. production gear cutter following and notified of patient's transfer to ICU. handoff given to Kar FABIAN at 1900.
[2023-03-15 07:52] LABS: Vancomycin Random 19.4 mcg/mL (15-20)
--- NOTE | 2023-03-15 07:59 | HE.PHANOTE ---
ZEE ANDERSON Held dose yesterday but random this morning still 19.4 (from 19.3 yesterday). Reschedule dose to tonight @2200 and recheck level @2000 to ensure it's coming down before admin of next dose.
[2023-03-15] MEDS: Albumin Human 25 % 100 ML IV ×3 (08:45→13:59)
[2023-03-15] MEDS: Sodium Hypochlorite 0.5% 473 ML SOLUTION 1 APPL TOPICAL (09:33)
[2023-03-15] MEDS: Norepinephrine Bitartrate/D5W 8 MG/250 ML PLAST..BAG 20.16 MG IV (09:38)
--- NOTE | 2023-03-15 11:05 | MHC.CLN ---
F/U DISCUSSED AT ROUNDS WITH PT WITH PUREED WITH NT LIQ DIET ENCOURAGE SUPPLEMENT TO PROMOTE WOUND HEALING REVIEWED LABS DISCUSSED WITH PHARMACY PT RECEIVED PPN AT 35ML/HR TO PROVIDE 367KCALS, 72G DEXTROSE, 31G PROTEIN PPN TO SWITCH TO TPN PT WITH IJ LINE 03/15/23 RECOMMEND TPN AT 55ML/HR TO PROVIDE 937KCALS, 198G DEXTROSE, 66G PROTEIN (1.3G/KG) CHECK TRIG LEVEL REPLETE LYTES NEEDED 03/16/23 AND 03/17/23 CONTINUE TPN AT 55ML/HR AND ADD 54G LIPIDS TO PROVIDE 1477 TOTAL KCALS (29KCALS/KG), 198G DEXTROSE, 66G PROTEIN (1.3G/KG) REPLETE LYTES NEEDED
[2023-03-15 11:08] LABS: MANUAL DIFF FLAG NO
[2023-03-15 11:12] LABS: Basophils Percent Auto 0.2 % (0-2); Eosinophils Absolute Auto 0.1 X10*3/uL (0.0-0.4); Eosinophils Percent Auto 0.3 % (0-4); Hemoglobin 7.2 g/dl (12.0-16.0); Imm Gran Abs Auto 0.21 X10*3/uL (0.00-0.03); Imm Gran Pct Auto 0.9 % (0.0-0.4); Lymphocytes Absolute Auto 1.6 X10*3/uL (1.2-4.9); Lymphocytes Percent Auto 7.1 % (20-40); Mean Corpuscular HGB Conc 35.3 g/dl (31.0-35.0); Mean Corpuscular Volume 82.3 fL (80.0-98.0); Monocytes Absolute Auto 0.5 X10*3/uL (0.1-1.2); Monocytes Percent Auto 2.2 % (2-11); NRBC Pct Auto 0.1 /100WBC (0.0-0.2); Neutrophils Absolute Auto 19.9 x10*3/uL (2.0-8.3); Neutrophils Percent Auto 89.3 % (45-73); Platelet Count 50 X10*3/uL (160-400); Red Blood Count 2.48 X10*6/uL (4.20-5.50); Red Cell Distribution Width 17.9 % (11.0-16.0); White Blood Count 22.3 X10*3/uL (4.8-10.8)
[2023-03-15 11:14] LABS: Hematocrit 20.4 % (37.0-47.0)
--- NOTE | 2023-03-15 11:14 | MHC.SL.SWA ---
Speech Pathologist Impression: Risk of aspiration, oropharyngeal dysphagia Risk of Aspiration Due to: Poor PO Intake Weak Cough Weak Voice Dysphasia Diet Status: No change Liquid Consistency and Strategies for Safe Swallow: Liquid Intake Recommendation: Gobles Thick Liquid Intake Strategies: Small Sips No Straws Liquids by Teaspoon Only Solid Food Consistency: Dietary Recommendations: Pureed (NDD1) Additional Modifications to Solid Foods: No changes recommended at this time. Recommend CONTINUE with PUREED (NDD1) diet and NECTAR THICK liquids via teaspoon only, pills CRUSHED in PUREE. Pt requires total 1:1 assistance feeding, close monitoring, and strict aspiration precautions: administer small bites, allow pt time to swallow, check oral cavity as needed to ensure clearance, alternate bites and sips, upright 90 degree position during PO intake, frequent oral care for hygiene and comfort. Oral Medication Intake: Crushed with Puree Please contact the pharmacy regarding appropriate crushable or liquid drug formulations that are available whenever modified delivery is recommended. Compensatory Strategies and Precautions to be Taken for Safe Swallow: Sitting Upright (90 deg) Liquids from Cup Liquids from Spoon Small Bites and Sips Alternate Liquids/Solids Rate of Ingestion Change Oral Check Supervision While Eating and Drinking for Safe Swallow: Total Assistance (1:1) Swallowing Recommended Treatments: Compens. Strategy Educat. Recommendation for Speech: Inpatient Speech Therapy Discharge Rn Clinican/Clinical Fellow: No Supervisory Statement: I have reviewed and agree with the student/clinical fellow's documentation: N/A Speech Language Pathologist: Mraa Parrish M.A., CCC-DOCUMENTATION LEAD
[2023-03-15 11:19] LABS: INTERNATIONAL NORM RATIO 1.8 (0.9-1.1); Prothrombin Time 21.3 SEC (11.1-13.3)
[2023-03-15] MEDS: Phytonadione (Vit K1) 10 MG in 0.9 % Sodium Chloride 50 ML 51 MG IV (12:05)
--- NOTE | 2023-03-15 12:10 | P.PNVS_ITS ---
Subjective Subjective Date of Service: 03/15/23 Interval history: Patient's condition has significantly deteriorated over the last day or 2. She has been admitted to the ICU in noted to have a low hemoglobin. She had been transfused nearly 4 units of blood. I was called to the ICU by the television cable installer for evaluation of the lower extremities. There was a CT with contrast performed which had no significant findings she does have significant increase in bilateral lower extremity leg circumference. Right worse than left. Physical Exam Vital Signs: Vital Signs: Last Vital Signs Temp 99.7 F 03/15/23 11:57 Pulse 123 H 03/15/23 12:09 Resp 38 H 03/15/23 11:57 BP 89/49 L 03/15/23 12:09 Pulse Ox 94 03/15/23 11:00 O2 Del Method Room Air 03/15/23 11:00 O2 Flow Rate 2 03/11/23 01:35 Oxygen Flow Rate 2 03/11/23 01:38 BMI result Body Mass Index 18.2 Const: General: cooperative, healthy appearing and no acute distress Orientation/consciousness: oriented to person, oriented to place and oriented to time HEENT: Other: Gums bleeding poor dentition Head: Yes normal to inspection Neck: Carotids: no bruits Chest: Chest palpation & inspection: normal inspection of the chest Resp: Effort & Inspection: normal respiratory effort and able to speak in complete sentences Auscultation: clear to auscultation bilaterally Cardio: Rate: regular rate Heart sounds: S1 normal heart sound present and S2 normal heart sound present GI: Inspection: Yes normal to inspection Skin: Other: Right posterior thigh totally disintegrated. Significant hematoma evacuated. Left thigh skin intact but hematoma noted around the knee and distal aspect of the thigh. General skin exam: no rashes or lesions noted Wounds: no wounds Neuro: General: oriented to person, oriented to place, oriented to time and CN's II-XI intact bilaterally Extrem: General: Yes normal to inspection, Yes full ROM and Yes no clubbing, cyanosis or edema Psych: Appearance: grossly normal and well kempt Speech and movement: Normal speech and movement present Affect: normal affect Progress Note: A&P Assessment and plan (1) Leg wound, right: Status: Acute Assessment and Plan: In short patient has had a significant hematoma along with nonfunctional legs. For all intents and purposes they are nonfunctional and will never heal. It appears that she is bleeding from these as a source into the soft tissue. Wound was packed. Compressive dressing was placed. Patient will require above knee amputation most definitely of the right but most likely bilateral. Will need platelet count to be over 100,000 and stabilizes much as possible. Reinforce dressing as required throughout the weekend. We will continue to follow her with you. Please note 65 minutes was required for record assessment management of services imaging review of the CT scan and dressing care of the patient. (2) Leg wound, left: Status: Acute Time Spent With Patient Time: Total time managing care of this patient today ____ minutes. Procedures Date of Service Date of Service: 03/15/23 Quality Stroke Does the patient have a stroke diagnosis?: No VTE Prior VTE?: No VTE Risk Level:: Medical - moderate - high VTE Device Contraindication: N/A - Device Ordered VTE Drug Contraindication: Treatment Not Indicated
--- NOTE | 2023-03-15 12:16 | HO.WOUND ---
Addendum entered by Emily Chaudhari RN 03/15/23 12:24: TT with direct care nurse - wound worsening - currently managed by providers given worsening state of legs. Inpatient wound care will continue to follow chart. Original Note: Wound Consult: Follow up 72yr old female admitted to [facility] on?03/11/23 02:45 - See progress notes and H&P for detailed history and hospital course - patient transferred to ICU level of care 03/14/23. Request by direct care team to assist in wound care dressings and needs assessment of pt's lower legs which are reported to be worsening. Arrival to bedside spoke with direct care nurse and provider briefly - Right leg with significant increase in swelling from my last assessment and red blood noted on disposable bed linen and dressing. There appears to to be new purple pigmentation along with swelling to the left knee unassociated with pressure - Dr. Veliz was requested to bedside for assessment by ICU provider. When dressing was adjusted increase in bleeding noted - given Dr. Veliz to be beside shortly - decision was made to postpone assessment due to pt comfort and concern for dressing currently holding pressure. Deferred assessment to future time. Direct care team will reach back out if topical care is needed.
[2023-03-15 12:25] LABS: Glucose, Whole Blood 162 mg/dL (60-115)
[2023-03-15 13:06] LABS: OBS Int Ctl Valid YES; OBS1 NEGATIVE (NEGATIVE)
--- NOTE | 2023-03-15 13:41 | P.PNCC_ITS ---
Subjective Subjective Date of Service: 03/15/23 Interval History: 72-year-old lady with underlying history of failure to thrive, lymphedema, peripheral artery disease admitted on 03/11/2023 for generalized weakness, failure to thrive, and sepsis with likely skin and pulmonary source. patient with broad-spectrum antibiotics. Blood cultures are growing Proteus. patient has been evaluated by General surgery, however she refused to have her sacral wound examined. Patient also was evaluated by vascular surgery for concern for chronic bilateral lower extremity ischemia. During vasculr workup deep venous thrombosis of lower extremity was noted and patient was started on therapeutic dose Lovenox. However, patient developed acute blood loss anemia with hemorrhagic shock on 03/14/2023 requiring transfer to intensive care unit. Patient received 4 units of blood with improvement in hemoglobin. CT of prior right lower extremity with contrast showed no active extravasation. No events overnight. Worsening bleeding in to bilateral thighs this a.m. right significantly worse than left with opening of soft tissue and hematoma. A right lower extremity posteriorly bedside blunt dissected with the question of clot and hematoma and and packing by vascular surgery Critical Care Time (minutes): 60 Physical Exam 2 Vital Signs: Vital Signs: Last Vital Signs Temp 97.9 F 03/15/23 13:28 Pulse 119 H 03/15/23 13:28 Resp 20 03/15/23 13:28 BP 104/56 L 03/15/23 13:28 Pulse Ox 94 03/15/23 13:00 O2 Del Method Room Air 03/15/23 13:00 O2 Flow Rate 2 03/11/23 01:35 Oxygen Flow Rate 2 03/11/23 01:38 BMI result Body Mass Index 18.2 Const: General: no acute distress, alert and awake Nutritional Appearance: malnourished Eyes: Sclerae: sclerae normal EOM: EOMs intact bilaterally Neck: Neck: Yes no lymphadenopathy, Yes trachea midline and Yes supple Resp: Effort & Inspection: normal respiratory effort and no respiratory distress Auscultation: clear to auscultation bilaterally Cardio: Rate: tachycardic Rhythm: regular rhythm Heart sounds: no gallops, no murmurs and no rubs GI: Palpation (GI): Soft to palpation and Other GI palpation findings present ( Nontender) Auscultation: normal bowel sounds Extrem: General: No clubbing, Yes edema (Bilateral lower extremity) and Yes other (Bilateral purple toes, bilateral legs wrapped for hemostasis) Objective Data Labs 03/15/23 10:53 03/15/23 05:18 Labs: Laboratory Results - last 24 hr 03/12/23 03/14/23 03/14/23 06:36 09:44 13:55 WBC 14.7 H RBC 1.87 L D Hgb 4.9 L* D Hct 14.9 L* D MCV 79.7 L MCH 26.2 L MCHC 32.9 RDW 24.8 H Plt Count 52 L MPV Not Reportable Immature Gran % (Auto) Neut % (Auto) Lymph % (Auto) [place] % (Auto) Eos % (Auto) Baso % (Auto) Lymph # (Auto) [place] # (Auto) Eos # (Auto) Baso # (Auto) Abs Immat Gran (auto) Absolute Neuts (auto) Absolute Nucleated RBC 0.020 H Nucleated RBC % (auto) 0.1 Smear Tech's Comments ESR 2 PT INR VBG pH VBG pCO2 VBG pO2 VBG HCO3 VBG O2 Saturation VBG Base Excess Sodium 144 Potassium 2.4 L* Chloride 115 H Carbon Dioxide 16 L Anion Gap 15 BUN 47 H Creatinine 1.09 Estim Creat Clear Calc 38.8 Estimated GFR 50 POC Glucose Random Glucose 121 H Calcium 7.8 L Phosphorus 1.8 L Magnesium 1.4 L* Total Bilirubin AST ALT Alkaline Phosphatase Total Protein Albumin Stool Occult Blood Vancomycin Trough Random Vancomycin Anti-Gliadin IgG Ab <1.0 Gliadin (Deamidat) IgA 1.6 Blood Type B Positive Antibody Screen NEGATIVE Crossmatch See Detail 03/14/23 03/14/23 03/15/23 18:17 18:21 00:30 WBC 28.1 H RBC 4.17 L D Hgb 11.9 L D Hct 34.9 L D MCV 83.7 MCH 28.5 MCHC 34.1 RDW 17.5 H Plt Count 57 L MPV 9.5 Immature Gran % (Auto) 1.4 H Neut % (Auto) 88.3 H Lymph % (Auto) 7.5 L [place] % (Auto) 2.0 Eos % (Auto) 0.6 Baso % (Auto) 0.2 Lymph # (Auto) 2.1 [place] # (Auto) 0.6 Eos # (Auto) 0.2 Baso # (Auto) 0.1 Abs Immat Gran (auto) 0.38 H Absolute Neuts (auto) 24.8 H Absolute Nucleated RBC 0.060 H Nucleated RBC % (auto) 0.2 Smear Tech's Comments VERIFIED ESR PT INR VBG pH 7.34 VBG pCO2 23 VBG pO2 37 VBG HCO3 12 L VBG O2 Saturation 66.0 VBG Base Excess -11.0 Sodium 143 Potassium 5.4 H D Chloride 115 H Carbon Dioxide 15 L Anion Gap 18 BUN 43 H Creatinine 1.05 Estim Creat Clear Calc 40.3 Estimated GFR 52 POC Glucose 158 H 153 H Random Glucose 167 H Calcium 7.7 L Phosphorus 4.7 H Magnesium 2.1 Total Bilirubin 2.6 H AST 12 ALT 7 Alkaline Phosphatase 77 Total Protein 5.3 L Albumin 3.9 Stool Occult Blood Vancomycin Trough 19.3 Random Vancomycin Anti-Gliadin IgG Ab Gliadin (Deamidat) IgA Blood Type Antibody Screen Crossmatch 03/15/23 03/15/23 03/15/23 05:17 05:18 07:35 WBC 28.9 H RBC 3.31 L D Hgb 9.7 L Hct 28.0 L MCV 84.6 MCH 29.3 MCHC 34.6 RDW 17.6 H Plt Count 57 L MPV Not Reportable Immature Gran % (Auto) 1.0 H Neut % (Auto) 90.2 H Lymph % (Auto) 6.4 L [place] % (Auto) 1.9 L Eos % (Auto) 0.3 Baso % (Auto) 0.2 Lymph # (Auto) 1.8 [place] # (Auto) 0.6 Eos # (Auto) 0.1 Baso # (Auto) 0.1 Abs Immat Gran (auto) 0.29 H Absolute Neuts (auto) 26.0 H Absolute Nucleated RBC 0.050 H Nucleated RBC % (auto) 0.2 Smear Tech's Comments VERIFIED ESR PT INR VBG pH 7.37 VBG pCO2 26 VBG pO2 38 VBG HCO3 15 L VBG O2 Saturation 64.0 VBG Base Excess -8.0 Sodium 145 Potassium 3.8 D Chloride 116 H Carbon Dioxide 17 L Anion Gap 16 BUN 45 H Creatinine 1.06 Estim Creat Clear Calc 39.9 Estimated GFR 51 POC Glucose Random Glucose 184 H Calcium 8.1 L Phosphorus 3.6 Magnesium 1.9 Total Bilirubin 2.2 H AST 14 ALT 8 Alkaline Phosphatase 78 Total Protein 4.5 L Albumin 3.1 L Stool Occult Blood Vancomycin Trough Random Vancomycin 19.4 Anti-Gliadin IgG Ab Gliadin (Deamidat) IgA Blood Type Antibody Screen Crossmatch 03/15/23 03/15/23 03/15/23 10:53 12:20 12:46 WBC 22.3 H RBC 2.48 L D Hgb 7.2 L D Hct 20.4 L* D MCV 82.3 MCH 29.0 MCHC 35.3 H RDW 17.9 H Plt Count 50 L MPV Not Reportable Immature Gran % (Auto) 0.9 H Neut % (Auto) 89.3 H Lymph % (Auto) 7.1 L [place] % (Auto) 2.2 Eos % (Auto) 0.3 Baso % (Auto) 0.2 Lymph # (Auto) 1.6 [place] # (Auto) 0.5 Eos # (Auto) 0.1 Baso # (Auto) 0.0 Abs Immat Gran (auto) 0.21 H Absolute Neuts (auto) 19.9 H Absolute Nucleated RBC 0.030 H Nucleated RBC % (auto) 0.1 Smear Tech's Comments ESR PT 21.3 H INR 1.8 H VBG pH VBG pCO2 VBG pO2 VBG HCO3 VBG O2 Saturation VBG Base Excess Sodium Potassium Chloride Carbon Dioxide Anion Gap BUN Creatinine Estim Creat Clear Calc Estimated GFR POC Glucose 162 H Random Glucose Calcium Phosphorus Magnesium Total Bilirubin AST ALT Alkaline Phosphatase Total Protein Albumin Stool Occult Blood NEGATIVE Vancomycin Trough Random Vancomycin Anti-Gliadin IgG Ab Gliadin (Deamidat) IgA Blood Type Antibody Screen Crossmatch Microbiology Microbiology Results: Microbiology 03/14/23 16:29 Urine Catheterized - Rubalcava Catheter Urine Culture - Preliminary No growth to date. 03/10/23 18:34 Blood - Venous Blood Culture - Final Proteus mirabilis 03/13/23 Unknown Urine clean catch - Urine carias top Urine Culture - Final 03/10/23 18:16 Decubitus Ulcer Gram Stain - Final 03/10/23 18:16 Decubitus Ulcer Routine Culture - Final Proteus mirabilis 03/10/23 18:34 Blood - Venous Blood Culture - Preliminary No growth after 48 hours. Progress Note: A&P Assessment and plan (1) Leg wound, right: Status: Acute (2) Hematoma of right thigh: Status: Acute (3) Bacteremia due to Proteus species: Status: Acute (4) Protein-calorie malnutrition, severe: Status: Acute (5) Failure to thrive in adult: Status: Acute (6) Acute blood loss anemia: Status: Acute (7) Hemorrhagic shock: Status: Acute (8) PAD (peripheral artery disease): Status: Acute (9) DVT (deep venous thrombosis): Status: Acute Plan Assessment: 72-year-old lady admitted with failure to thrive with hospital course complicated by Proteus bacteremia with skin or pulmonary source, deep venous thrombosis of lower extremity, hemorrhagic shock Plan: Neuro: No acute issues. Cardiac: hemorrhagic shock, improving with transfusion of blood products, though continues to require pressor and blood product support, continue to titrate off as tolerated. Lower extremity peripheral vascular disease, evaluated by vascular surgery, may require amputation. Pulmonary: Likely underlying aspiration and/or community-acquired pneumonia. Renal: Acute renal failure and metabolic acidosis likely secondary to shock, improving. Non oliguric. Continue to monitor renal indices and urine output. Endo: No acute issues. GI: unclear if occult GI bleed is contributing to anemia. Gastroenterology service care appreciated. ID: Proteus bacteremia , likely skin//pulmonary source. Continues on broad- spectrum antibiotics. Heme/Onc: Lower extremity DVT, initially started on therapeutic dose Lovenox now with development of hemorrhagic shock with acute blood loss anemia. Lovenox stopped. Protamine given. Continues to bleeding bilateral lower extremity. Evaluated by vascular surgery with bedside clot evacuation and packing of the right leg. Continue to monitor hemoglobin. Coagulopathy, vitamin K given. Psych: No acute issues. Miscellaneous: No acute issues. Prophylaxis: Ppi. No pharmacologic DVT prophylaxis secondary to hemorrhagic shock, no compression devices secondary to lower extremity DVT. Diet: Pending speech therapy recommendations, TPN Critical care time spent: 60 minutes Quality Stroke Does the patient have a stroke diagnosis?: No VTE Prior VTE?: No VTE Risk Level:: Medical - moderate - high VTE Device Contraindication: N/A - Device Ordered VTE Drug Contraindication: Treatment Not Indicated
--- NOTE | 2023-03-15 13:41 | MHC.CM.PN ---
Addendum entered by Ni Miller 03/15/23 15:41: Pt experienced a significant turn in events and family meeting was held to discuss goals of care: pt's dtr/HCP Tali spoke with MD at length and will convene with her siblings on goals of care. CM available over weekend to assist family. Original Note: Pt transferred to ICU for BP management. Pt with multiple skin impairment issues including a large sacral decubitus, thigh hematoma and necrosis to toes. Pt malnourished and in overall poor physical condition. GSSS report has been filed: pt's pillowcase turner is Maryellen Pena. Pt from home w/dtr and VNA but dtr is not able to return. [facility] referrals made as pt may need placement to manage her many medical issues.
--- NOTE | 2023-03-15 14:23 | HO.SKINPHOTO ---
Location: Right Posterior leg Category: Open Hematoma
--- NOTE | 2023-03-15 14:29 | PC.NURSE ---
Addendum entered by Gretchen Yao RN 03/15/23 18:17: Provider notified of 1500 CBC critical results- see results. 2 additional Units RBCs ordered by MD- infused per TAR. Pads under patient saturated with large amount of blood- MD made aware. Tranexamic acid ordered by MD and administered per EMAR. BLE dressing reinforced with coban and june wrap. Patient medicated with PRN fentanyl prior to care for comfort- see EMAR. Pt HR sustaining 120s-130s- MD notified: 1 L LR ordered and administered per EMAR. Patient confused and extremely resistive to care, requiring constant explanation and reorientation. Original Note: Assumed care at 0700. Pt remains on levophed gtt, titrated per EMAR to sustain MAPs >65. Patient HR 90s at rest, 100s-110s while awake. Patient alert only to self and time. pedal pulses faint yet palpable. Hematoma on right leg larger than previous day, now extending anteriorly, small amount of blood noted on pad beneath right leg. Engine Maintenance Mechanic made aware and at bedside to assess. Dr. Veliz called by child nutrition assistant. CBC drawn at approx 1100- see results. Blood products ordered by provider- 1 U FFP, 1 U platelets, 1 U RBCs administered per TAR. Vitamin K ordered and administered per EMAR. Dr. Veliz at bedside with child nutrition assistant, now a large amount of blood noted on the pad beneath right leg. Upon rolling pt, large amount of blood and blood clots draining from now open hematoma. Open hematoma photographed- see previous Skin photo/note by this RN. Bilateral legs dressed and wrapped by Dr. Veliz using gauze to pack, curlex, and june wraps. Per Dr. Veliz, reinforce dressings only, do not remove until further notice.- see report by Dr. Veliz. Repeat CBC drawn at 1500- results pending. Case management notified, family meeting held with HCP, child nutrition assistant, and Ni FABIAN from case management. Patient repositioned and oral care provided Q2, fentantyl PRN administered per EMAR for pain. Plan of care ongoing.
[2023-03-15 15:17] LABS: MANUAL DIFF FLAG NO
[2023-03-15 15:22] LABS: Basophils Percent Auto 0.1 % (0-2); Eosinophils Percent Auto 0.1 % (0-4); Hematocrit 17.7 % (37.0-47.0); Imm Gran Abs Auto 0.24 X10*3/uL (0.00-0.03); Imm Gran Pct Auto 1.1 % (0.0-0.4); Lymphocytes Absolute Auto 1.6 X10*3/uL (1.2-4.9); Lymphocytes Percent Auto 7.2 % (20-40); Mean Corpuscular Hemoglobin 30.1 pg (27.0-33.0); Mean Corpuscular Volume 85.9 fL (80.0-98.0); Mean Platelet Volume 10.4 fL (9.4-12.3); Monocytes Absolute Auto 0.5 X10*3/uL (0.1-1.2); Monocytes Percent Auto 2.2 % (2-11); NRBC Pct Auto 0.3 /100WBC (0.0-0.2); Neutrophils Percent Auto 89.3 % (45-73); Platelet Count 75 X10*3/uL (160-400); Red Blood Count 2.06 X10*6/uL (4.20-5.50); White Blood Count 22.3 X10*3/uL (4.8-10.8)
[2023-03-15 15:24] LABS: Hemoglobin 6.2 g/dl (12.0-16.0)
[2023-03-15] MEDS: Norepinephrine Bitartrate/D5W 8 MG/250 ML PLAST..BAG 40.32 MG IV (15:56)
[2023-03-15] MEDS: Lactated Ringers 1,000 ML 999 ML IV (16:00)
[2023-03-15] MEDS: Tranexamic Acid 1,000 MG in 0.9 % Sodium Chloride 250 ML 32.5 MG IV (16:56)
[2023-03-15 18:07] LABS: Glucose, Whole Blood 186 mg/dL (60-115)
--- NOTE | 2023-03-15 20:26 | HO.HCP ---
Health Care Proxy Invocation Health Care Proxy Declaration: I, _Andi Steinberg , on the date cited below, have determined that, Tiffani Trent , lacks the capacity to make or communicate, informed health care decision. This determination is made in accordance with accepted standards of medical judgment and pursuant to [place] c[place] 201[place], the [facility] Care Proxy Law. The cause, nature, extent and probable duration of the patient's inapacity are described below: Cause: Encephalopaty Nature: Septic Extent: severe Probable Duration of Patient's Incapacity: unknown
--- NOTE | 2023-03-15 20:29 | PM.EVENT ---
Documented by User: Andi Steinberg NP 03/15/23 20:35 Event Note Date of Service: 03/15/23 Event Note: Patient with worsening medical conditions, septic on pressors, nonviable lower extremities requiring amputations by vascular surgeon. Patient unable to make decisions for herself, due to underlying encephalopathy. Goals of care conversation held earlier during the day, by attending physician Dr Roblero. Family wanted to address goals of care with myself. Healthcare proxy Natasha Trent and daughter Myla will like for patient to be comfort measures now. Time Spent With Patient Time: Total time managing care of this patient today ____ minutes. Documented by User: Sheldon Roblero MD 03/16/23 11:12 Event Note Date of Service: 03/16/23
[2023-03-15] MEDS: fentaNYL citrate/NS 1,000 MCG/100 ML PLAST..BAG 2.5 MCG IVCONT (21:01)
--- NOTE | 2023-03-16 11:13 | P.PNCC_ITS ---
Subjective Subjective Date of Service: 03/16/23 Interval History: 72-year-old lady with underlying history of failure to thrive, lymphedema, peripheral artery disease admitted on 03/11/2023 for generalized weakness, failure to thrive, and sepsis with likely skin and pulmonary source. patient with broad-spectrum antibiotics. Blood cultures are growing Proteus. patient has been evaluated by General surgery, however she refused to have her sacral wound examined. Patient also was evaluated by vascular surgery for concern for chronic bilateral lower extremity ischemia. During vasculr workup deep venous thrombosis of lower extremity was noted and patient was started on therapeutic dose Lovenox. However, patient developed acute blood loss anemia with hemorrhagic shock on 03/14/2023 requiring transfer to intensive care unit. Patient received 4 units of blood with improvement in hemoglobin. CT of prior right lower extremity with contrast showed no active extravasation. Worsening bleeding in to bilateral thighs on 03/15/2023 right significantly worse than left with opening of soft tissue and hematoma. A right lower extremity posteriorly bedside blunt dissected with the question of clot and hematoma and and packing by vascular surgery with recommendation for bilateral [id number] amputation. Clinical course and vascular surgery recommendations discussed with patient's healthcare proxy who after consulting with other family members decided to change goals of care to palliation. Patient's code status changed to comfort measures only. Critical Care Time (minutes): 0 Physical Exam 2 Vital Signs: Vital Signs: Last Vital Signs Temp 98.0 F 03/15/23 19:43 Pulse 122 H 03/15/23 20:35 Resp 16 03/15/23 20:00 BP 122/74 03/15/23 20:35 Pulse Ox 94 03/15/23 20:00 O2 Del Method Room Air 03/15/23 20:00 O2 Flow Rate 2 03/11/23 01:35 Oxygen Flow Rate 2 03/11/23 01:38 BMI result Body Mass Index 18.2 Const: General: comfortable Objective Data Labs 03/15/23 15:13 03/15/23 05:18 Labs: Laboratory Results - last 24 hr 03/14/23 03/15/23 03/15/23 09:44 10:53 12:20 WBC 22.3 H RBC 2.48 L D Hgb 7.2 L D Hct 20.4 L* D MCV 82.3 MCH 29.0 MCHC 35.3 H RDW 17.9 H Plt Count 50 L MPV Not Reportable Immature Gran % (Auto) 0.9 H Neut % (Auto) 89.3 H Lymph % (Auto) 7.1 L [place] % (Auto) 2.2 Eos % (Auto) 0.3 Baso % (Auto) 0.2 Lymph # (Auto) 1.6 [place] # (Auto) 0.5 Eos # (Auto) 0.1 Baso # (Auto) 0.0 Abs Immat Gran (auto) 0.21 H Absolute Neuts (auto) 19.9 H Absolute Nucleated RBC 0.030 H Nucleated RBC % (auto) 0.1 PT 21.3 H INR 1.8 H POC Glucose 162 H Stool Occult Blood Blood Type B Positive Antibody Screen NEGATIVE Crossmatch See Detail 03/15/23 03/15/23 03/15/23 12:46 15:13 18:00 WBC 22.3 H RBC 2.06 L Hgb 6.2 L* Hct 17.7 L* MCV 85.9 MCH 30.1 MCHC 35.0 RDW 16.0 Plt Count 75 L D MPV 10.4 Immature Gran % (Auto) 1.1 H Neut % (Auto) 89.3 H Lymph % (Auto) 7.2 L [place] % (Auto) 2.2 Eos % (Auto) 0.1 Baso % (Auto) 0.1 Lymph # (Auto) 1.6 [place] # (Auto) 0.5 Eos # (Auto) 0.0 Baso # (Auto) 0.0 Abs Immat Gran (auto) 0.24 H Absolute Neuts (auto) 20.0 H Absolute Nucleated RBC 0.060 H Nucleated RBC % (auto) 0.3 H PT INR POC Glucose 186 H Stool Occult Blood NEGATIVE Blood Type Antibody Screen Crossmatch Microbiology Microbiology Results: Microbiology 03/10/23 18:34 Blood - Venous Blood Culture - Final No growth after 5 days. 03/14/23 16:29 Urine Catheterized - Rubalcava Catheter Urine Culture - Preliminary No growth to date. 03/10/23 18:34 Blood - Venous Blood Culture - Final Proteus mirabilis 03/13/23 Unknown Urine clean catch - Urine carias top Urine Culture - Final 03/10/23 18:16 Decubitus Ulcer Gram Stain - Final 03/10/23 18:16 Decubitus Ulcer Routine Culture - Final Proteus mirabilis Progress Note: A&P Assessment and plan (1) Hematoma of right thigh: Status: Acute (2) Leg wound, right: Status: Acute (3) Leg wound, left: Status: Acute (4) Bacteremia due to Proteus species: Status: Acute (5) Protein-calorie malnutrition, severe: Status: Acute (6) Failure to thrive in adult: Status: Acute (7) Acute blood loss anemia: Status: Acute (8) PAD (peripheral artery disease): Status: Acute (9) Sacral wound: Status: Acute Plan Patient remains in comfort measures only code status is comfortable on fentanyl drip and as needed fentanyl/ benzodiazepines pushes. Quality Stroke Does the patient have a stroke diagnosis?: No VTE Prior VTE?: No VTE Risk Level:: Medical - moderate - high VTE Device Contraindication: N/A - Device Ordered VTE Drug Contraindication: Treatment Not Indicated
[2023-03-16 12:38] LABS: Endomysial IgA Antibody Negative (Negative)
[2023-03-16] MEDS: fentaNYL citrate/NS 1,000 MCG/100 ML PLAST..BAG 5 MCG IVCONT (14:55)
--- NOTE | 2023-03-16 15:12 | PC.NURSE ---
Pt arrived to unit via bed. Family at bedside. Pt alert but unable to answer questions. No facial grimacing noted. TLC to right IJ infusing Fentanyl 50mcg/hour per order, Verified by this RN and charge nurse Breonna. Superviser Bessie Mars verified with pharmacy use of fentanyl drip on med surg unit.
--- NOTE | 2023-03-16 18:06 | PC.NURSE ---
Pt verbalized she did not wish to be repositioned. Pt soiled, Cleaned, barrier cream applied to buttocks. Bottocks extremely red and excoriated. Refused repositioning onto side but agreed to pillows under each arm . Denied pain. Family remain at bedside
[2023-03-17] MEDS: fentaNYL citrate/NS 1,000 MCG/100 ML PLAST..BAG 5 MCG IVCONT (09:49)
--- NOTE | 2023-03-17 09:57 | PC.NURSE ---
New ENERGY SALES CONSULTANT bag Fentanyl 50mcg/hour witnessed by Breonna jennings RN
--- NOTE | 2023-03-17 09:58 | PC.NURSE ---
This RN witnessed RUI Reed when hanging a new Fentanyl bag 50mcg/hr
--- NOTE | 2023-03-17 11:09 | P.PNIM_ITS ---
Subjective Subjective Date of Service: 03/17/23 Interval History: Seen and evaluated feels comfortable on the drip denies any pain Review of Systems Review of Systems: Yes all other systems are reviewed and are negative Physical Exam 2 Vital Signs: Vital Signs: Last Vital Signs Temp 98.0 F 03/15/23 19:43 Pulse 122 H 03/15/23 20:35 Resp 16 03/15/23 20:00 BP 122/74 03/15/23 20:35 Pulse Ox 94 03/15/23 20:00 O2 Del Method Room Air 03/15/23 20:00 O2 Flow Rate 2 03/11/23 01:35 Oxygen Flow Rate 2 03/11/23 01:38 BMI result Body Mass Index 18.2 Const: Other: comfortable interactive not in distress central line in place Objective Data Active Medications Fentanyl (Sublimaze/Ns) 1,000 mcg in 100 mls @ 0 mls/hr IVCONT .Q0M [facility]; Protocol Last Admin: 03/17/23 09:49 Dose: 50 mcg/hr, 5 mls/hr Documented By: CHARY Lorazepam (Lorazepam 2 Mg/Ml Vial) 1 mg IVPUSH Q2H PRN PRN Reason: anxiety/restlessness Morphine Sulfate (Morphine Sulfate 2 Mg/Ml Cartridge) 2 mg IVPUSH Q2H PRN; Protocol PRN Reason: dyspnea, comfort measure Ondansetron HCl (Ondansetron Hcl 4 Mg/2 Ml Vial) 4 mg IVPUSH Q8H PRN PRN Reason: Nausea and Vomiting Last Admin: 03/11/23 22:41 Dose: 4 mg Sodium Chloride (0.9 % Sodium Chloride Flush 3 Ml Syringe) 3 ml IVFLUSH [facility] Last Admin: 03/17/23 08:04 Dose: Not Given Documented By: CHARY Non-Admin Reason: IV Running Labs 03/15/23 15:13 03/15/23 05:18 Labs: Laboratory Results - last 24 hr 03/12/23 06:36 Endomysial IgA Ab Negative Microbiology Microbiology Results: Microbiology 03/14/23 16:29 Urine Culture - Final Urine Catheterized - Rubalcava Catheter No growth. Assessment and Plan (1) Leg wound, left: Status: Acute (2) Leg wound, right: Status: Acute (3) Hematoma of right thigh: Status: Acute (4) Bacteremia due to Proteus species: Status: Acute (5) Protein-calorie malnutrition, severe: Status: Acute Plan 72F PMH DVT not on AC, sacral ulcer, biba after found dissheveled in feces with large sacral ulcer complicated by acute blood loss anemia secondary to bleeding into her thighs requiring ICU support with blood transfusion and vascular surgery evaluation as it was complicated by bleeding wound. discussed with her family by ICU provider and agreed to change her status to comfort measures only. sepsis due to pna and stage iv sacral ulcer with Proteus Bacteremia and possible om acute on chronic microcytic anemia On Comfort measures only now Continue Fentanyl drip, can be changed to PRN doses Ativan PRN for restlessness To discuss with family potential hospice care. reason for continued hospitalization: Comfort measures on Fentanyl drip Quality Stroke Does the patient have a stroke diagnosis?: No VTE Prior VTE?: No VTE Risk Level:: Medical - moderate - high VTE Device Contraindication: N/A - Device Ordered VTE Drug Contraindication: Treatment Not Indicated
[2023-03-17] MEDS: Morphine Sulfate 2 MG/ML CARTRIDGE IVPUSH (13:37)
--- NOTE | 2023-03-17 15:57 | PC.NURSE ---
Pt and family requesting pt not to be repositioned frequently. Asked several times throughout this shift. Requested premedication for pain control prior to repositioning this afternoon. Medicated with IV morphine. Dressing to sacral area soiled, changed per orders. Right leg june wrap soiled- replaced with clean june. Pt repositioned onto right side with pillows. Pt currently resting comfortably with family at bedside. Sequencing Machine Operator from [facility] called by community outreach director and will be coming this evening to see pt
[2023-03-17] MEDS: LORazepam 2 MG/ML VIAL 1 MG IVPUSH (17:17)
[2023-03-18] MEDS: fentaNYL citrate/NS 1,000 MCG/100 ML PLAST..BAG 5 MCG IVCONT (05:18)
--- NOTE | 2023-03-18 05:25 | PC.NURSE ---
new bag of iv fentanyl hung wittnessed by charge nurse Infusing at 50mcg/hr.
--- NOTE | 2023-03-18 05:58 | PC.NURSE ---
at 0518 am witness to change decommissioning well site manager drip bag of fentanyl with Breonna
[2023-03-18] MEDS: 0.9 % Sodium Chloride Flush 3 ML SYRINGE IVFLUSH ×2 (07:39→16:40)
--- NOTE | 2023-03-18 09:47 | MHC.CLN ---
F/U PATIENT IS NOW COMFORT MEASURES ONLY. RD AVAILABLE NEEDED.
--- NOTE | 2023-03-18 11:16 | HO.PM.IMPN ---
Subjective Subjective Date of Service: 03/18/23 Interval History: Seen and evaluated feels comfortable on the drip more lethargic and sleepy today Review of Systems Review of Systems: Yes Unobtainable due to mental status Physical Exam Vital Signs: Vital Signs: Last Vital Signs Temp 98.0 F 03/15/23 19:43 Pulse 122 H 03/15/23 20:35 Resp 16 03/15/23 20:00 BP 122/74 03/15/23 20:35 Pulse Ox 94 03/15/23 20:00 O2 Del Method Room Air 03/15/23 20:00 O2 Flow Rate 2 03/11/23 01:35 Oxygen Flow Rate 2 03/11/23 01:38 BMI result Body Mass Index 18.2 Const: Other: comfortable interactive not in distress central line in place Objective Data Active Medications Fentanyl (Sublimaze/Ns) 1,000 mcg in 100 mls @ 0 mls/hr IVCONT .Q0M [facility]; Protocol Last Admin: 03/18/23 05:18 Dose: 50 mcg/hr, 5 mls/hr Documented By: NORMA Lorazepam (Lorazepam 2 Mg/Ml Vial) 1 mg IVPUSH Q2H PRN PRN Reason: anxiety/restlessness Last Admin: 03/17/23 17:17 Dose: 1 mg Documented By: CHARY Morphine Sulfate (Morphine Sulfate 2 Mg/Ml Cartridge) 2 mg IVPUSH Q2H PRN; Protocol PRN Reason: dyspnea, comfort measure Last Admin: 03/17/23 13:37 Dose: 2 mg Documented By: CHARY Ondansetron HCl (Ondansetron Hcl 4 Mg/2 Ml Vial) 4 mg IVPUSH Q8H PRN PRN Reason: Nausea and Vomiting Last Admin: 03/11/23 22:41 Dose: 4 mg Sodium Chloride (0.9 % Sodium Chloride Flush 3 Ml Syringe) 3 ml IVFLUSH [facility] Last Admin: 03/18/23 07:39 Dose: 3 ml Documented By: GARY Labs 03/15/23 15:13 03/15/23 05:18 Assessment and Plan (1) Hematoma of right thigh: Status: Acute (2) Leg wound, right: Status: Acute (3) Leg wound, left: Status: Acute (4) Failure to thrive in adult: Status: Acute Plan 72F PMH DVT not on AC, sacral ulcer, biba after found dissheveled in feces with large sacral ulcer complicated by acute blood loss anemia secondary to bleeding into her thighs requiring ICU support with blood transfusion and vascular surgery evaluation as it was complicated by bleeding wound. discussed with her family by ICU provider and agreed to change her status to comfort measures only. sepsis due to pna and stage iv sacral ulcer with Proteus Bacteremia and possible om acute on chronic microcytic anemia On Comfort measures only now Continue Fentanyl drip, can be changed to PRN doses Ativan PRN for restlessness To continue comfort measures reason for continued hospitalization: Comfort measures on Fentanyl drip Quality Stroke Does the patient have a stroke diagnosis?: No VTE Prior VTE?: No VTE Risk Level:: Medical - moderate - high VTE Device Contraindication: N/A - Device Ordered VTE Drug Contraindication: Treatment Not Indicated
--- NOTE | 2023-03-18 16:21 | MHC.CM.PN ---
Per MD rounds Patient is ACUTE CARE PHYSICAL THERAPIST. Patient is on a Fentanyl GTT for pain management. Due to severe pain, patient will not be transported to another facility. Patient will remain @ [facility].
[2023-03-18] MEDS: Morphine Sulfate 2 MG/ML CARTRIDGE IVPUSH (17:59)
[2023-03-19] MEDS: fentaNYL citrate/NS 1,000 MCG/100 ML PLAST..BAG 5 MCG IVCONT ×2 (00:38→22:50)
--- NOTE | 2023-03-19 00:42 | PC.NURSE ---
Witnessed Fentanyl HEEL BUFFER bag change at 0040 with Breonna Mckeon
[2023-03-19 07:48] LABS: Transglutaminase Ab IgG 3.4 U/mL; Transglutaminase IgA 1.3 U/mL
--- NOTE | 2023-03-19 12:15 | HO.PM.IMPN ---
Subjective Subjective Date of Service: 03/19/23 Interval History: Seen and evaluated feels comfortable on the drip lethargic and sleepy faint voice Review of Systems Review of Systems: Yes all other systems are reviewed and are negative Physical Exam Vital Signs: Vital Signs: Last Vital Signs Temp 98.0 F 03/15/23 19:43 Pulse 122 H 03/15/23 20:35 Resp 16 03/15/23 20:00 BP 122/74 03/15/23 20:35 Pulse Ox 94 03/15/23 20:00 O2 Del Method Room Air 03/15/23 20:00 O2 Flow Rate 2 03/11/23 01:35 Oxygen Flow Rate 2 03/11/23 01:38 BMI result Body Mass Index 18.2 Const: Other: comfortable interactive not in distress central line in place Objective Data Active Medications Fentanyl (Sublimaze/Ns) 1,000 mcg in 100 mls @ 0 mls/hr IVCONT .Q0M [facility]; Protocol Last Admin: 03/19/23 00:38 Dose: 50 mcg/hr, 5 mls/hr Documented By: NORMA Lorazepam (Lorazepam 2 Mg/Ml Vial) 1 mg IVPUSH Q2H PRN PRN Reason: anxiety/restlessness Last Admin: 03/17/23 17:17 Dose: 1 mg Documented By: CHARY Morphine Sulfate (Morphine Sulfate 2 Mg/Ml Cartridge) 2 mg IVPUSH Q2H PRN; Protocol PRN Reason: dyspnea, comfort measure Last Admin: 03/18/23 17:59 Dose: 2 mg Documented By: GARY Ondansetron HCl (Ondansetron Hcl 4 Mg/2 Ml Vial) 4 mg IVPUSH Q8H PRN PRN Reason: Nausea and Vomiting Last Admin: 03/11/23 22:41 Dose: 4 mg Sodium Chloride (0.9 % Sodium Chloride Flush 3 Ml Syringe) 3 ml IVFLUSH [facility] Last Admin: 03/19/23 07:36 Dose: Not Given Documented By: CATHY Non-Admin Reason: IV Running Labs 03/15/23 15:13 03/15/23 05:18 Labs: Laboratory Results - last 24 hr 03/12/23 06:36 Endomysial Ab Titer TNP Tiss Transglutamin IgG 3.4 Tiss Transglutamin IgA 1.3 Assessment and Plan (1) Leg wound, left: Status: Acute (2) Leg wound, right: Status: Acute (3) Hematoma of right thigh: Status: Acute (4) Protein-calorie malnutrition, severe: Status: Acute (5) Failure to thrive in adult: Status: Acute (6) Acute blood loss anemia: Status: Acute (7) Hemorrhagic shock: Status: Acute Plan 72F PMH DVT not on AC, sacral ulcer, biba after found dissheveled in feces with large sacral ulcer complicated by acute blood loss anemia secondary to bleeding into her thighs requiring ICU support with blood transfusion and vascular surgery evaluation as it was complicated by bleeding wound. discussed with her family by ICU provider and agreed to change her status to comfort measures only. sepsis due to pna and stage iv sacral ulcer with Proteus Bacteremia and possible om acute on chronic microcytic anemia On Comfort measures only now Continue Fentanyl drip, can be changed to PRN doses Ativan PRN for restlessness To continue comfort measures reason for continued hospitalization: Comfort measures on Fentanyl drip Quality Stroke Does the patient have a stroke diagnosis?: No VTE Prior VTE?: No VTE Risk Level:: Medical - moderate - high VTE Device Contraindication: N/A - Device Ordered VTE Drug Contraindication: Treatment Not Indicated
[2023-03-19] MEDS: LORazepam 2 MG/ML VIAL 1 MG IVPUSH (23:41)
[2023-03-19] MEDS: 0.9 % Sodium Chloride Flush 3 ML SYRINGE IVFLUSH (23:42)
[2023-03-20] MEDS: 0.9 % Sodium Chloride Flush 3 ML SYRINGE IVFLUSH ×3 (07:45→23:41)
--- NOTE | 2023-03-20 09:39 | PC.NURSE ---
2.5 ML Fentanyl wasted with Bessie Mars RN due to tubing change.
--- NOTE | 2023-03-20 09:44 | PC.NURSE ---
Fentanyl 2.5 ml wasted with Amberly Toña RN due to tubing change.
--- NOTE | 2023-03-20 11:19 | HO.PM.IMPN ---
Subjective Subjective Date of Service: 03/20/23 Interval History: Seen and evaluated looks comfortable on the drip lethargic and sleepy Review of Systems Review of Systems: Yes Unobtainable due to mental status Physical Exam Vital Signs: Vital Signs: Last Vital Signs Temp 98.0 F 03/15/23 19:43 Pulse 122 H 03/15/23 20:35 Resp 16 03/15/23 20:00 BP 122/74 03/15/23 20:35 Pulse Ox 94 03/15/23 20:00 O2 Del Method Room Air 03/15/23 20:00 O2 Flow Rate 2 03/11/23 01:35 Oxygen Flow Rate 2 03/11/23 01:38 BMI result Body Mass Index 18.2 Const: Other: comfortable interactive not in distress central line in place Objective Data Active Medications Fentanyl (Sublimaze/Ns) 1,000 mcg in 100 mls @ 0 mls/hr IVCONT .Q0M [facility]; Protocol Last Admin: 03/19/23 22:50 Dose: 50 mcg/hr, 5 mls/hr Documented By: GENNARO Lorazepam (Lorazepam 2 Mg/Ml Vial) 1 mg IVPUSH Q2H PRN PRN Reason: anxiety/restlessness Last Admin: 03/19/23 23:41 Dose: 1 mg Documented By: GENNARO Morphine Sulfate (Morphine Sulfate 2 Mg/Ml Cartridge) 2 mg IVPUSH Q2H PRN; Protocol PRN Reason: dyspnea, comfort measure Last Admin: 03/18/23 17:59 Dose: 2 mg Documented By: GARY Ondansetron HCl (Ondansetron Hcl 4 Mg/2 Ml Vial) 4 mg IVPUSH Q8H PRN PRN Reason: Nausea and Vomiting Last Admin: 03/11/23 22:41 Dose: 4 mg Sodium Chloride (0.9 % Sodium Chloride Flush 3 Ml Syringe) 3 ml IVFSH [facility] Last Admin: 03/20/23 07:45 Dose: 3 ml Documented By: MCKINLEY Labs 03/15/23 15:13 03/15/23 05:18 Assessment and Plan (1) Failure to thrive in adult: Status: Acute (2) Protein-calorie malnutrition, severe: Status: Acute (3) Hemorrhagic shock: Status: Acute Plan 72F PMH DVT not on AC, sacral ulcer, biba after found dissheveled in feces with large sacral ulcer complicated by acute blood loss anemia secondary to bleeding into her thighs requiring ICU support with blood transfusion and vascular surgery evaluation as it was complicated by bleeding wound. discussed with her family by ICU provider and agreed to change her status to comfort measures only. sepsis due to pna and stage iv sacral ulcer with Proteus Bacteremia and possible om acute on chronic microcytic anemia On Comfort measures only now Continue Fentanyl drip, can be changed to PRN doses Ativan PRN for restlessness To continue comfort measures reason for continued hospitalization: Comfort measures on Fentanyl drip Quality Stroke Does the patient have a stroke diagnosis?: No VTE Prior VTE?: No VTE Risk Level:: Medical - moderate - high VTE Device Contraindication: N/A - Device Ordered VTE Drug Contraindication: Treatment Not Indicated
--- NOTE | 2023-03-20 13:30 | MHC.CM.PN ---
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 No plan for discharge.
[2023-03-20] MEDS: LORazepam 2 MG/ML VIAL 1 MG IVPUSH (17:28)
[2023-03-20 18:16] VITALS: RESP 20
[2023-03-20] MEDS: Morphine Sulfate 2 MG/ML CARTRIDGE IVPUSH (18:16)
[2023-03-20] MEDS: fentaNYL citrate/NS 1,000 MCG/100 ML PLAST..BAG 5 MCG IVCONT (18:23)
--- NOTE | 2023-03-20 18:52 | PC.NURSE ---
1.5ml of Fentanyl was wasted with this Nurse and Elfego Beltran during bag change.
--- NOTE | 2023-03-20 19:43 | PC.NURSE ---
Fentanyl house was put by field secretary desk drawerElfego the field secretary witnessed.
[2023-03-21] MEDS: 0.9 % Sodium Chloride Flush 3 ML SYRINGE IVFLUSH ×2 (08:44→16:11)
--- NOTE | 2023-03-21 11:47 | HO.PM.IMPN ---
Subjective Subjective Date of Service: 03/21/23 Interval History: Seen and evaluated looks comfortable on the Fentanyl drip lethargic and sleepy Physical Exam Vital Signs: Vital Signs: Last Vital Signs Temp 98.0 F 03/15/23 19:43 Pulse 122 H 03/15/23 20:35 Resp 20 03/20/23 18:16 BP 122/74 03/15/23 20:35 Pulse Ox 94 03/15/23 20:00 O2 Del Method Room Air 03/15/23 20:00 O2 Flow Rate 2 03/11/23 01:35 Oxygen Flow Rate 2 03/11/23 01:38 BMI result Body Mass Index 18.2 Const: Other: comfortable interactive not in distress central line in place Objective Data Active Medications Morphine Sulfate (Morphine Sulfate 2 Mg/Ml Cartridge) 2 mg IVPUSH Q2H PRN; Protocol PRN Reason: dyspnea, comfort measure Last Admin: 03/20/23 18:16 Dose: 2 mg Documented By: MCKINLEY Ondansetron HCl (Ondansetron Hcl 4 Mg/2 Ml Vial) 4 mg IVPUSH Q8H PRN PRN Reason: Nausea and Vomiting Last Admin: 03/11/23 22:41 Dose: 4 mg Sodium Chloride (0.9 % Sodium Chloride Flush 3 Ml Syringe) 3 ml IVFLUSH [facility] Last Admin: 03/21/23 08:44 Dose: 3 ml Documented By: YNES Labs 03/15/23 15:13 03/15/23 05:18 Assessment and Plan (1) Hematoma of right thigh: Status: Acute (2) Protein-calorie malnutrition, severe: Status: Acute (3) Acute hypokalemia: Status: Acute Plan 72F PMH DVT not on AC, sacral ulcer, biba after found dissheveled in feces with large sacral ulcer complicated by acute blood loss anemia secondary to bleeding into her thighs requiring ICU support with blood transfusion and vascular surgery evaluation as it was complicated by bleeding wound. discussed with her family by ICU provider and agreed to change her status to comfort measures only. sepsis due to pna and stage iv sacral ulcer with Proteus Bacteremia and possible om acute on chronic microcytic anemia On Comfort measures only now Continue Fentanyl drip, can be changed to PRN doses Ativan PRN for restlessness continue comfort measures reason for continued hospitalization: Comfort measures on Fentanyl drip Quality Stroke Does the patient have a stroke diagnosis?: No VTE Prior VTE?: No VTE Risk Level:: Medical - moderate - high VTE Device Contraindication: N/A - Device Ordered VTE Drug Contraindication: Treatment Not Indicated
[2023-03-21] MEDS: fentaNYL citrate/NS 1,000 MCG/100 ML PLAST..BAG 2.5 MCG IVCONT (14:12)
--- NOTE | 2023-03-21 14:23 | PC.NURSE ---
Changed fentanyl bag in LITIGATION ATTORNEY pump. New dose, 25mcg/2.5ml. Annie Bruce R.N. witnessed bag change, no waste. Primed pump. Pump running. Returned LITIGATION ATTORNEY house to top drawer next to special education secretary.
--- NOTE | 2023-03-22 06:17 | PC.NURSE ---
Pt seen on bed drowsy but opens eyes with stimulation, touch and care, Fentanyl drip cont at same rate at 25 mcg/her, repostioned on bed, kept comfortable , dry and warm.
[2023-03-22 08:00] VITALS: BP 88/49; PULSE 113; RESP 14; TEMP 36; O2SAT 99
[2023-03-22] MEDS: 0.9 % Sodium Chloride Flush 3 ML SYRINGE IVFLUSH (09:14)
--- NOTE | 2023-03-22 10:10 | MHC.CM.PN ---
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
--- NOTE | 2023-03-22 13:36 | P.PNIM_ITS ---
Subjective Subjective Date of Service: 03/22/23 Interval History: No acute changes. 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 Review of Systems Unable to obtain Physical Exam 2 Vital Signs: Vital Signs: Last Vital Signs Temp 96.8 F 03/22/23 08:00 Pulse 113 H 03/22/23 08:00 Resp 14 03/22/23 08:00 BP 88/49 L 03/22/23 08:00 Pulse Ox 99 03/22/23 08:00 O2 Del Method Room Air 03/22/23 08:00 O2 Flow Rate 2 03/11/23 01:35 Oxygen Flow Rate 2 03/11/23 01:38 BMI result Body Mass Index 18.2 Const: Other: Somnolent unarousable Resp: Other: Clear to auscultation bilaterally no rales rhonchi wheezes Cardio: Other: No S4; positive S1-S2; no S3 murmurs rubs gallops GI: Other: Soft nontender nondistended normoactive bowel sounds Extrem: Other: No edema Objective Data Active Medications Fentanyl (Sublimaze/Ns) 1,000 mcg in 100 mls @ 0 mls/hr IVCONT .Q0M [facility]; Protocol Last Titration: 03/22/23 04:36 Dose: 25 mcg/hr, 2.5 mls/hr Documented By: JOSÉ ANTONIO Morphine Sulfate (Morphine Sulfate 2 Mg/Ml Cartridge) 2 mg IVPUSH Q2H PRN; Protocol PRN Reason: dyspnea, comfort measure Last Admin: 03/20/23 18:16 Dose: 2 mg Documented By: MCKINLEY Ondansetron HCl (Ondansetron Hcl 4 Mg/2 Ml Vial) 4 mg IVPUSH Q8H PRN PRN Reason: Nausea and Vomiting Last Admin: 03/11/23 22:41 Dose: 4 mg Sodium Chloride (0.9 % Sodium Chloride Flush 3 Ml Syringe) [facility] Last Admin: 03/22/23 09:14 Dose: 3 ml Documented By: SHERRY Labs 03/15/23 15:13 03/15/23 05:18 Assessment and Plan (1) Sepsis: Status: Acute (2) Bacteremia due to Proteus species: Status: Acute Plan 72F PMH DVT not on AC, sacral ulcer, biba after found dissheveled in feces with large sacral ulcer complicated by acute blood loss anemia secondary to bleeding into her thighs requiring ICU support with blood transfusion and vascular surgery evaluation as it was complicated by bleeding wound. discussed with her family by ICU provider and agreed to change her status to comfort measures only. sepsis due to pna and stage iv sacral ulcer with Proteus Bacteremia and possible om acute on chronic microcytic anemia On Comfort measures only now Continue Fentanyl drip, can be changed to PRN doses Ativan PRN for restlessness continue comfort measures reason for continued hospitalization: Comfort measures on Fentanyl drip Quality Stroke Does the patient have a stroke diagnosis?: No VTE Prior VTE?: No VTE Risk Level:: Medical - moderate - high VTE Device Contraindication: N/A - Device Ordered VTE Drug Contraindication: Treatment Not Indicated
[2023-03-22 16:00] VITALS: BP 83/54; PULSE 95; RESP 14; TEMP 36; O2SAT 98
[2023-03-22 23:54] VITALS: RESP 16
[2023-03-23 00:44] VITALS: RESP 12
[2023-03-23] MEDS: 0.9 % Sodium Chloride Flush 3 ML SYRINGE IVFLUSH ×3 (00:45→19:32)
[2023-03-23 02:28] VITALS: RESP 10
[2023-03-23 03:41] VITALS: RESP 12
[2023-03-23 03:50] VITALS: RESP 10
[2023-03-23] MEDS: fentaNYL citrate/NS 1,000 MCG/100 ML PLAST..BAG 2.5 MCG IVCONT (03:50)
[2023-03-23 07:30] VITALS: PULSE 118; RESP 12; O2SAT 99
--- NOTE | 2023-03-23 07:36 | PC.NURSE ---
Assumed care of patient at midnight. 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 See Nursing SWABBER Flowsheet in chart. Bag changed this morning with RN witness per policy. Handoff report given [id number].
--- NOTE | 2023-03-23 13:27 | HO.PM.IMPN ---
Subjective Subjective Date of Service: 03/23/23 Interval History: Essentially no change overnight Review of Systems Unable to obtain Physical Exam Vital Signs: Vital Signs: Last Vital Signs Temp 96.8 F 03/22/23 16:00 Pulse 118 H 03/23/23 07:30 Resp 12 03/23/23 07:30 BP 83/54 L 03/22/23 16:00 Pulse Ox 99 03/23/23 07:30 O2 Del Method Room Air 03/23/23 07:30 O2 Flow Rate 2 03/11/23 01:35 Oxygen Flow Rate 2 03/11/23 01:38 BMI result Body Mass Index 18.2 Const: Other: Somnolent unarousable Resp: Other: Clear to auscultation bilaterally no rales rhonchi wheezes Cardio: Other: No S4; positive S1-S2; no S3 murmurs rubs gallops GI: Other: Soft nontender nondistended normoactive bowel sounds Extrem: Other: No edema Objective Data Active Medications Fentanyl (Sublimaze/Ns) 1,000 mcg in 100 mls @ 0 mls/hr IVCONT .Q0M [facility]; Protocol Last Admin: 03/23/23 03:50 Dose: 25 mcg/hr, 2.5 mls/hr Documented By: JUVE Morphine Sulfate (Morphine Sulfate 2 Mg/Ml Cartridge) 2 mg IVPUSH Q2H PRN; Protocol PRN Reason: dyspnea, comfort measure Last Admin: 03/20/23 18:16 Dose: 2 mg Documented By: MCKINLEY Ondansetron HCl (Ondansetron Hcl 4 Mg/2 Ml Vial) 4 mg IVPUSH Q8H PRN PRN Reason: Nausea and Vomiting Last Admin: 03/11/23 22:41 Dose: 4 mg Sodium Chloride (0.9 % Sodium Chloride Flush 3 Ml Syringe) [facility] Last Admin: 03/23/23 09:56 Dose: Not Given Documented By: PARESH Non-Admin Reason: Previously Administered Labs 03/15/23 15:13 03/15/23 05:18 Assessment and Plan (1) Sepsis: Status: Acute Plan 72F PMH DVT not on AC, sacral ulcer, biba after found dissheveled in feces with large sacral ulcer complicated by acute blood loss anemia secondary to bleeding into her thighs requiring ICU support with blood transfusion and vascular surgery evaluation as it was complicated by bleeding wound. discussed with her family by ICU provider and agreed to change her status to comfort measures only. sepsis due to pna and stage iv sacral ulcer with Proteus Bacteremia and possible om acute on chronic microcytic anemia On Comfort measures only now Continue Fentanyl drip, can be changed to PRN doses Ativan PRN for restlessness continue comfort measures reason for continued hospitalization: Comfort measures on Fentanyl drip Quality Stroke Does the patient have a stroke diagnosis?: No VTE Prior VTE?: No VTE Risk Level:: Medical - moderate - high VTE Device Contraindication: N/A - Device Ordered VTE Drug Contraindication: Treatment Not Indicated
[2023-03-23 23:41] VITALS: BP 115/52; PULSE 117; RESP 12; TEMP 36.1; O2SAT 98
--- NOTE | 2023-03-24 02:24 | PC.NURSE ---
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 See Nursing CNC LASER OPERATOR Flowsheet in chart. Nursing CNC LASER OPERATOR flowsheet for fentanyl has been continued to be used from morning shift.
[2023-03-24] MEDS: 0.9 % Sodium Chloride Flush 3 ML SYRINGE IVFLUSH ×2 (07:17→16:16)
[2023-03-24 08:00] VITALS: RESP 18
--- NOTE | 2023-03-24 12:05 | HO.PM.IMPN ---
Subjective Subjective Date of Service: 03/24/23 Interval History: Essentially no change overnight Review of Systems Unable to obtain Physical Exam Vital Signs: Vital Signs: Last Vital Signs Temp 96.9 F 03/23/23 23:41 Pulse 117 H 03/23/23 23:41 Resp 18 03/24/23 08:00 BP 115/52 L 03/23/23 23:41 Pulse Ox 98 03/23/23 23:41 O2 Del Method Room Air 03/23/23 23:41 O2 Flow Rate 2 03/11/23 01:35 Oxygen Flow Rate 2 03/11/23 01:38 BMI result Body Mass Index 18.2 Const: Other: Somnolent unarousable Resp: Other: Clear to auscultation bilaterally no rales rhonchi wheezes Cardio: Other: No S4; positive S1-S2; no S3 murmurs rubs gallops GI: Other: Soft nontender nondistended normoactive bowel sounds Extrem: Other: No edema Objective Data Active Medications Fentanyl (Sublimaze/Ns) 1,000 mcg in 100 mls @ 0 mls/hr IVCONT .Q0M [facility]; Protocol Last Titration: 03/24/23 06:01 Dose: 25 mcg/hr, 2.5 mls/hr Documented By: DOREEN Morphine Sulfate (Morphine Sulfate 2 Mg/Ml Cartridge) 2 mg IVPUSH Q2H PRN; Protocol PRN Reason: dyspnea, comfort measure Last Admin: 03/20/23 18:16 Dose: 2 mg Documented By: MCKINLEY Ondansetron HCl (Ondansetron Hcl 4 Mg/2 Ml Vial) 4 mg IVPUSH Q8H PRN PRN Reason: Nausea and Vomiting Last Admin: 03/11/23 22:41 Dose: 4 mg Sodium Chloride (0.9 % Sodium Chloride Flush 3 Ml Syringe) 3 ml IVFLUSH [facility] Last Admin: 03/24/23 07:17 Dose: 3 ml Documented By: GARY Labs 03/15/23 15:13 03/15/23 05:18 Assessment and Plan (1) Bacteremia due to Proteus species: Status: Acute Plan 72F PMH DVT not on AC, sacral ulcer, biba after found dissheveled in feces with large sacral ulcer complicated by acute blood loss anemia secondary to bleeding into her thighs requiring ICU support with blood transfusion and vascular surgery evaluation as it was complicated by bleeding wound. discussed with her family by ICU provider and agreed to change her status to comfort measures only. sepsis due to pna and stage iv sacral ulcer with Proteus Bacteremia and possible om acute on chronic microcytic anemia On Comfort measures only now Continue Fentanyl drip, can be changed to PRN doses Ativan PRN for restlessness continue comfort measures reason for continued hospitalization: Comfort measures on Fentanyl drip Quality Stroke Does the patient have a stroke diagnosis?: No VTE Prior VTE?: No VTE Risk Level:: Medical - moderate - high VTE Device Contraindication: N/A - Device Ordered VTE Drug Contraindication: Treatment Not Indicated
[2023-03-24 15:29] VITALS: RESP 11
--- NOTE | 2023-04-04 10:03 | P.CDIM_ITS ---
PROVIDER RESPONSE TEXT: To clarify, the appropriate diagnosis supported by the clinical indicators: Other (explain): opened and evacuated on own. No surgical procedure. Only dressing change QUERY TEXT: PHYSICIAN'S DOCUMENTATION REQUEST Date of Query: 04/04/2023 09:52 AM EST Patient Name: Tiffani Trent Admit Date: 03/11/2023 RETROSPECTIVE QUERY Dear Perez Veliz, A review of the medical record indicates additional documentation may be needed. Please review below and update the documentation accordingly. Clinical Indicators: Surgery progress note dated 03/15/23: Right posterior thigh totally disintegrated. Significant hemato ma evacuated. Left thigh skin but hematoma noted around the knee and distal aspect of the thigh. Based on the above, could you clarify the specifics of the evacuation performed: Evacuation Hematoma procedure specifics: Open, Percutaneous etc. Other (explain) Clinically unable to determine (explain) Thank you, Merry Carpenter, CCS, CDIS Use of terms such as suspected, likely, concern for, or probable (associated with a specific diagnosi s that is being evaluated, monitored, or treated as if it exists) are acceptable and can be coded in the inpatient se tting, when documented at the time of discharge. Please use your independent medical judgment in providing your response. THIS QUERY IS PART OF THE PERMANENT MEDICAL RECORD
--- NOTE | 2023-05-02 10:27 | PM.DS ---
DS: Providers Provider Date of Service: 03/24/23 Date of admission: 03/11/23 02:45 Date of discharge: 05/24/23 Primary care physician: Carlos Madrigal MD DS: Diagnosis Discharge Diagnosis (1) Bacteremia due to Proteus species: Status: Acute DS: Summary Hospital Course Hospital Course: 72-year-old female with pertinent history of lymphedema who was brought to the emergency department for evaluation of generalized weakness. Unable to obtain history from the patient as she is a poor historian. History obtained from daughter at bedside. Apparently the daughter who does not live with the patient came to visit her and found her very weak and with bedsores. Patient lives with another daughter who takes care of the patient and provides hygiene. Daughter stated that the patient has hardly eaten in the last 3-4 days. Patient also has been having cough, purulent that has been ongoing for a few days. In the emergency department, patient was found to be septic with leukocytosis. Also found to be anemic with hemoglobin of 6.3. Foul-smelling purulent bed sores noted. Albumin noted to be low at 1.9. Unable to obtain review of systems. Imaging concerning for right-sided pneumonia. Patient resuscitated with IV crystalloids and placed on supplemental oxygen in the ER. Hospital Course Patient admitted to the hospital and started on broad-spectrum antibiotics including vancomycin and Zosyn. 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 Patient was transferred to ICU and found to have several hematomas requiring blood transfusions in pressors. ICU attending discussed with family who made patient comfort measures only. Patient was transferred back to the general medical floor on 03/17 on comfort measures. She was maintained on a fentanyl drip and on 03/24/2023 peacefully Time Attestation Discharge coordination time: Greater than 30 minutes Quality: Safe Use of Opioids Does Pt have an Active Cancer Diagnosis on the Problem List?: No Quality: Stroke Does the patient have a stroke diagnosis?: No Physical Exam Vital Signs: Vital Signs: Last Vital Signs Temp 96.9 F 03/23/23 23:41 Pulse 117 H 03/23/23 23:41 Resp 11 L 03/24/23 15:29 BP 115/52 L 03/23/23 23:41 Pulse Ox 98 03/23/23 23:41 O2 Del Method Room Air 03/23/23 23:41 O2 Flow Rate 2 03/11/23 01:35 Oxygen Flow Rate 2 03/11/23 01:38 BMI result Body Mass Index 18.2 DS: Data Data Completed and Pending Completed studies during hospitalization [Text1]: Procedures Insertion of Infusion Device into Left Basilic Vein, Percutaneous Approach (03/11/23) Introduction of Vasopressor into Central Vein, Percutaneous Approach (03/11/23) Transfusion of Nonautologous Frozen Plasma into Peripheral Vein, Percutaneous Approach (03/11/23) Transfusion of Nonautologous Platelets into Peripheral Vein, Percutaneous Approach (03/11/23) Transfusion of Nonautologous Red Blood Cells into Peripheral Vein, Percutaneous Approach (03/11/23) Discharge Plan Discharge Date/Time: 03/24/23 20:00 Patient Disposition: Discharge Diagnosis: Sepsis secondary to pneumonia Referrals: Carlos Madrigal MD [Primary Care Provider] - 1 Week Discharge Medications: No Action (DME) wheelchair Device See Rx Instructions .ROUTE .MEDSUPPLY Qty: 1 Rx Instructions: As directed (DME) LIGHTWEIGHT WHEELCHAIR See Rx Instructions .Route .MEDSUPPLY Qty: 1 0RF Rx Instructions: LIGHTWEIGHT WHEELCHAIR # 1 - use daily as directed loperamide [Imodium A-D] 2 mg tablet 2 mg PO Q6H PRN (Reason: loose stool) Qty: 30 0RF tramadol 50 mg tablet 50 mg PO BID PRN (Reason: pain) 15 Days Qty: 30 0RF (DME) Xeroform Petrolatum Dressing 5 X 9 bandage See Rx Instructions .ROUTE .MEDSUPPLY Qty: 50 Patient Comments: per pt daughter they change it every other day Rx Instructions: As directed (DME) gauze bandage [Bordered Gauze] 4 X 4 bandage See Rx Instructions .ROUTE .MEDSUPPLY Qty: 1200 Patient Comments: PT CHANGES GAUZE EVERY DAY Rx Instructions: As directed aspirin [Nima Aspirin] 325 mg tablet 325 mg PO DAILY sennosides [Senna Laxative] 8.6 mg tablet 8.6 mg PO BEDTIME PRN (Reason: constipation) 90 Days Qty: 90 1RF Discharge Date/Time: 03/24/23 20:00
== END 2023-03-24 20:00 | disposition expired | DRG 871 ==
LOC: HO.ED 20:37 → HO.EDOVER 03-11 02:54 → HO.IMC 03-11 14:24 → HO.ICU 03-14 15:08 → HO.S3 03-16 11:25
PROVIDERS: Internal Medicine; Internal Medicine Pulmonary Disease; Registered Nurse Community Health; Student in an Organized Health Care Education/Training Program; Admitting Provider Student in an Organized Health Care Education/Training Program; Emergency Provider Student in an Organized Health Care Education/Training Program; PCP Internal Medicine; Visit Provider Hospitalist
PROC: 05HC33Z Insertion of Infusion Device into Left Basilic Vein, Percutaneous Approach (ICD-10-PCS; principal; 2023-03-14 12:30)
DX: A41.59 Other Gram-negative sepsis (principal); E43 Unspecified severe protein-calorie malnutrition; L89.154 Pressure ulcer of sacral region, stage 4; J96.01 Acute respiratory failure with hypoxia; J69.0 Pneumonitis due to inhalation of food and vomit; J15.69 Pneumonia due to other Gram-negative bacteria; Z68.1 Body mass index [BMI] 19.9 or less, adult; E87.21 Acute metabolic acidosis; T76.01XA Adult neglect or abandonment, suspected, initial encounter; D62 Acute posthemorrhagic anemia; I82.511 Chronic embolism and thrombosis of right femoral vein; M46.28 Osteomyelitis of vertebra, sacral and sacrococcygeal region; Z51.5 Encounter for palliative care; I73.9 Peripheral vascular disease, unspecified; M79.81 Nontraumatic hematoma of soft tissue; E16.2 Hypoglycemia, unspecified; E87.6 Hypokalemia; L97.529 Non-pressure chronic ulcer of other part of left foot with unspecified severity; L97.519 Non-pressure chronic ulcer of other part of right foot with unspecified severity; K59.00 Constipation, unspecified; N18.9 Chronic kidney disease, unspecified; L89.610 Pressure ulcer of right heel, unstageable; E86.0 Dehydration; N20.0 Calculus of kidney; R65.20 Severe sepsis without septic shock; D63.1 Anemia in chronic kidney disease; R57.8 Other shock; Z79.82 Long term (current) use of aspirin; Z79.899 Other long term (current) drug therapy
CPT/HCPCS: 36415; 36573; 71045; 73701; 74177; 80048; 80053; 80076; 80202; 80307; 81001; 82272; 82436; 82533; 82550; 82570; 82607; 82728; 82746; 82803; 82947; 83540; 83605; 83735; 84100; 84133; 84156; 84300; 84484; 85025; 85027; 85610; 85652; 86231; 86258; 86364; 86850; 86900; 86901; 86923; 87040; 87070; 87077; 87086; 87186; 87205; 92526; 92610; 93005; 93925; 99285; C1751; C1758; C1894; J0613; J0692; J1650; J2060; J2250; J2270; J2405; J2543; J2720; J3010; J3370; J3430; J3475; J3480; J7120; P9016; P9017; P9047; P9073; Q9967

== ENCOUNTER → 2023-03-11 02:45 | Outpatient (BNV) | payer MEDICARE, SELFPAY | PROVIDERS: Admitting Provider Student in an Organized Health Care Education/Training Program; Emergency Provider Student in an Organized Health Care Education/Training Program; PCP Internal Medicine; Visit Provider Student in an Organized Health Care Education/Training Program | DX: R78.81 Bacteremia (principal); B96.4 Proteus (mirabilis) (morganii) as the cause of diseases classified elsewhere | CPT/HCPCS: 99223; 99231; 99233; 99239; 99499 ==

== ENCOUNTER → 2023-03-11 02:45 | Outpatient (BNV) | payer MEDICARE, SELFPAY | PROVIDERS: Admitting Provider Student in an Organized Health Care Education/Training Program; Emergency Provider Student in an Organized Health Care Education/Training Program; PCP Internal Medicine; Visit Provider Surgery | DX: T74.01XA Adult neglect or abandonment, confirmed, initial encounter (principal); S31.000A Unspecified open wound of lower back and pelvis without penetration into retroperitoneum, initial encounter; A41.9 Sepsis, unspecified organism; E43 Unspecified severe protein-calorie malnutrition; L81.9 Disorder of pigmentation, unspecified | CPT/HCPCS: 99222; 99232 ==

== ENCOUNTER → 2023-03-11 02:45 | Outpatient (BNV) | payer MEDICARE, SELFPAY | PROVIDERS: Admitting Provider Student in an Organized Health Care Education/Training Program; Emergency Provider Student in an Organized Health Care Education/Training Program; PCP Internal Medicine; Visit Provider Internal Medicine | DX: S31.000A Unspecified open wound of lower back and pelvis without penetration into retroperitoneum, initial encounter (principal); A41.9 Sepsis, unspecified organism | CPT/HCPCS: 99222 ==

== ENCOUNTER → 2023-03-11 02:45 | Outpatient (BNV) | payer MEDICARE, SELFPAY | PROVIDERS: Admitting Provider Student in an Organized Health Care Education/Training Program; Emergency Provider Student in an Organized Health Care Education/Training Program; PCP Internal Medicine; Visit Provider Surgery Vascular Surgery | DX: I73.9 Peripheral vascular disease, unspecified (principal); L97.919 Non-pressure chronic ulcer of unspecified part of right lower leg with unspecified severity; L97.929 Non-pressure chronic ulcer of unspecified part of left lower leg with unspecified severity; E43 Unspecified severe protein-calorie malnutrition | CPT/HCPCS: 99222; 99232; 99233 ==

== ENCOUNTER → 2023-03-11 02:45 | Outpatient (BNV) | payer MEDICARE, SELFPAY | PROVIDERS: Admitting Provider Student in an Organized Health Care Education/Training Program; Emergency Provider Student in an Organized Health Care Education/Training Program; PCP Internal Medicine; Visit Provider Urology | DX: T74.01XA Adult neglect or abandonment, confirmed, initial encounter (principal); S31.000A Unspecified open wound of lower back and pelvis without penetration into retroperitoneum, initial encounter; K59.00 Constipation, unspecified; N20.0 Calculus of kidney | CPT/HCPCS: 99222 ==

== ENCOUNTER → 2023-03-11 02:45 | Outpatient (BNV) | payer MEDICARE, SELFPAY | PROVIDERS: Admitting Provider Student in an Organized Health Care Education/Training Program; Emergency Provider Student in an Organized Health Care Education/Training Program; PCP Internal Medicine; Visit Provider Internal Medicine Pulmonary Disease | DX: R78.81 Bacteremia (principal); B96.4 Proteus (mirabilis) (morganii) as the cause of diseases classified elsewhere; R62.7 Adult failure to thrive; S31.000A Unspecified open wound of lower back and pelvis without penetration into retroperitoneum, initial encounter; S70.11XA Contusion of right thigh, initial encounter; S81.801A Unspecified open wound, right lower leg, initial encounter; S81.802A Unspecified open wound, left lower leg, initial encounter; E43 Unspecified severe protein-calorie malnutrition; D62 Acute posthemorrhagic anemia; I73.9 Peripheral vascular disease, unspecified | CPT/HCPCS: 99231; 99291 ==